=== PATIENT | female | born 1955 | race Caucasian/White ===

== ENCOUNTER 2016-09-18 21:03 | Inpatient (IN) | payer MEDICARE, BC ==
[~2016-09-18] VITALS: Ht 160 cm; Wt 72.6 kg
[~2016-09-18 21:03] MED LIST: ASPI325T PO; ATOR40TA64 PO; ESCI20TA30 PO; FURO20TA4 PO; GABA-336 PO; HYDR-3989 PO; LEVO100T12 PO; ONDA4TAB7 PO; OXYC1TAB8 PO; POTA20TA87 PO; SOTA80TA20 PO
--- OUTSIDE RECORDS SUMMARY | 2016-09-18 21:10 | XMS REPORT | Continuity of Care Document ---
Author Author [facility] Organization [facility] Address Unknown Phone Unavailable Support Name Relationship Address Phone MARICRUZ LENTZ MD Caregiver [address] [place] [address] Unavailable CHICHO LORENZO DO Caregiver [address] [place] [address] Unavailable STEVE JAY Next Of Kin [address] [place] [address] Insurance Providers Guarantor Tiffanie Jay Address [address] [place] [id number] Email DENIED 2016 [facility] Policy Number [id number] Subscriber's Name Steve Jay Relationship 01 Spouse Group Number [id number] Payer Medicare Policy Number [id number] Subscriber's Name Tiffanie Jay Relationship 18 Self Advance Directives Directive Response Recorded Date/Time Advanced Directives Type None 09/01/16 9:07am Chief Complaint and Reason for Visit Chief Complaint Chest Pain Reason for Visit Acute chest wall pain Problems Active Problems Medical Problem Onset Date Status Atrial fibrillation Unknown Acute Carotid aneurysm, right Unknown Acute Past Problems Medical Problem Onset Date Acute chest wall pain Unknown Medications Current Home Medications Medication Dose Units Route Directions Days Qty Instructions Start Date Acetaminophen/Hydrocodone Bitart ([place] 5-325 Tablet) 5-325 Tablet 1 Tab Oral Every 4-6 Hours Prn 09/01/16 Aspirin 325 Mg Tablet 325 Mg Oral Daily 02/27/15 Atorvastatin Calcium 40 Mg Tablet 1 Tab Oral Bedtime 02/27/15 Escitalopram Oxalate 20 Mg Tablet 1 Tab Oral Daily 02/27/15 Furosemide 20 Mg Tablet 20 Mg Oral Qd 09/01/16 Gabapentin 100 Mg Capsule 1 Cap Oral Daily 02/27/15 Levothyroxine Sodium 100 Mcg Tablet 100 Mcg Oral Qd 09/01/16 Ondansetron (Zofran Odt) 4 Mg Tab.rapdis 4 Mg Oral Every 4 Hours as needed for Nausea &/Or Vomiting 3 Days 18 Tablet 09/01/16 Oxycodone Hcl/Acetaminophen (Percocet 5-325 Mg Tablet) 5-325 Tablet 1 Tab Oral Every 4 Hours as needed for Pain 3 Days 18 Tablet 09/01/16 Potassium Chloride 20 Meq Tab.er.prt 20 Meq Oral Qd 09/01/16 Sotalol Hcl (Betapace) 80 Mg Tablet 40 Mg Oral Before Meals Twice A Day 60 Tablet 02/28/15 Past Home Medications Medication Directions Ordered Status Aspirin 81 Mg Tab.chew, 81 Mg Oral 09/13/11 Discontinued Cyclobenzaprine Hcl 10 Mg Tablet, 10 Mg Oral Daily 09/13/11 Discontinued Hydrocodone/Acetaminophen ([place] 5-325 Tablet) 1 Each Tablet, 1-2 Tab Oral Every 6 Hours as needed for Pain 11/24/14 Discontinued Levothyroxine Sodium 75 Mcg Tablet, 75 Mcg Perfusion Daily 09/14/11 Discontinued Lisinopril 20 Mg Tablet, 20 Mg Oral Daily 09/13/11 Discontinued Metoprolol Tartrate 25 Mg Tablet, 25 Mg Oral Twice Daily With Meals 02/27/15 Discontinued Oxybutynin , 15 Daily 09/13/11 Discontinued Simvastatin 20 Mg Tablet, 20 Mg Oral Daily 09/13/11 Discontinued Ubidecarenone/Vitamin E (Co Q-10 50 Mg Softgel) 1 Cap Capsule, 1 Cap Oral Daily 09/13/11 Discontinued Venlafaxine Hcl 37.5 Mg Tablet, 37.5 Mg Oral Daily 09/13/11 Discontinued Social History Social History Problem Response Recorded Date/Time Onset Date Status Hx Substance Use No 09/01/2016 9:21am Not Applicable Not Applicable Hx Alcohol Use No 09/01/2016 9:21am Not Applicable Not Applicable Has the pt used tobacco in the last 12 months Yes 02/27/2015 9:39am Not Applicable Not Applicable Tobacco Usage none 11/29/2014 8:30am Not Applicable Not Applicable Query Response Start Date Stop Date Smoking Status Current every day smoker Hospital Discharge Instructions No hospital discharge instructions. Plan of Care Discharge Date 09/01/16 12:38pm Disposition 01 DISCHARGED HOME, SELF-CARE Condition at Discharge Improved Instructions/Education Provided Chest Wall Pain (ED) Prescriptions See Medication Section Referrals MARICRUZ LENTZ MD Address: [address] [place] [id number] Note: GIOVANI GORE MD Order Date: 2 Days Address: [address] [place] [address] [place] [phone] Care Plan and Goals Physician Care Plan Problem: Acute Chest Wall Pain Goal: Follow up with primary care provider Instructions: Take medications and follow care plan as discussed/written Functional Status No functional status results. Allergies, Adverse Reactions, Alerts Allergen Type Severity Reaction Status Last Updated Sulfa (Sulfonamide Antibiotics) Allergy Unknown UNKNOWN Active 09/01/16 ZOMAX Allergy Unknown HIVES Active 02/27/15 Immunizations Query Response on File Recorded Date/Time Hx Influenza Vaccination No 02/27/15 9:39am Hx Pneumococcal Vaccination Y DECEMBER 2013 02/27/15 9:39am Hx Influenza Vaccination No 02/27/15 9:39am Influenza Vaccine Hx NOT UP TO DATE 09/01/16 9:21am Vital Signs Acute Vital Signs Vital Response Date/Time Temperature (Fahrenheit) 97.7 deg F (96.8 - 99.1) 09/01/2016 9:07am Temperature (Calculated Celsius) 36.03761 degrees C (36.0 - 37.3) 09/01/2016 9:07am Pulse Rate (adult) 59 bpm (60 - 100) 09/01/2016 12:36pm Respiratory Rate 20 breaths/min (10 - 20) 09/01/2016 12:36pm O2 Sat by Pulse Oximetry 95 % (90 - 100) 09/01/2016 12:36pm Blood Pressure 149/65 mm Hg 09/01/2016 12:36pm Height (Feet) 5 feet 09/01/2016 9:07am Height (Inches) 3.00 inches 09/01/2016 9:07am Weight (Kilograms) 74.100 kg 09/01/2016 9:07am Body Mass Index (BMI) 28.0 09/01/2016 9:07am Results Laboratory Results Test Name Result Units Flags Reference Collection Date/Time Result Date/ Time Comments White Blood Count 8.1 T/MM3 4.5-11.0 09/01/2016 9:46am 09/01/2016 9: 53am Red Blood Count 4.50 M/MM3 4.00-5.20 09/01/2016 9:46am 09/01/2016 9: 53am Hemoglobin 12.8 GM/DL 12-16 09/01/2016 9:46am 09/01/2016 9:53am Hematocrit 39.8 % 36-46 09/01/2016 9:46am 09/01/2016 9:53am Mean Corpuscular Volume 88.4 UM3 80-100 09/01/2016 9:46am 09/01/2016 9: 53am Mean Corpuscular Hemoglobin 28.4 UUG 26-34 09/01/2016 9:46am 2016 9:53am Mean Corpuscular Hemoglobin Concent 32.2 GM/DL 31-37 09/01/2016 9:46am 09/01/2016 9:53am RDW Standard Deviation 50.0 FL 36.9-50.2 09/01/2016 9:46am 09/01/2016 9 :53am Platelet Count 253 T/MM3 130-400 09/01/2016 9:46am 09/01/2016 9:53am Mean Platelet Volume 10.8 UM3 9.4-12.4 09/01/2016 9:46am 09/01/2016 9: 53am Neutrophils (%) (Auto) 67.6 % H 33-66 09/01/2016 9:46am 09/01/2016 9: 53am Lymphocytes (%) (Auto) 22.1 % L 23-45 09/01/2016 9:46am 09/01/2016 9: 53am Monocytes (%) (Auto) 7.3 % 0-9.0 09/01/2016 9:46am 09/01/2016 9:53am Eosinophils (%) (Auto) 1.5 % 0-4 09/01/2016 9:46am 09/01/2016 9:53am Basophils (%) (Auto) 1.1 % 0-2 09/01/2016 9:46am 09/01/2016 9:53am Immature Granulocyte % (Auto) 0.4 % 0.0-0.5 09/01/2016 9:46am 2016 9:53am Absolute Neutrophils (auto) 5.5 T/MM3 1.8-7.7 09/01/2016 9:46am 2016 9:53am Absolute Lymphocytes (auto) 1.8 T/MM3 1-4.8 09/01/2016 9:46am 2016 9:53am Absolute Monocytes (auto) 0.6 T/MM3 0-0.8 09/01/2016 9:46am 09/01/2016 9:53am Absolute Eosinophils (auto) 0.1 T/MM3 0-0.5 09/01/2016 9:46am 2016 9:53am Absolute Basophils (auto) 0.1 T/MM3 0-0.2 09/01/2016 9:46am 09/01/2016 9:53am Absolute Immature Granulocyte (auto 0.03 T/MM3 0.00-0.03 09/01/2016 9: 46am 09/01/2016 9:53am Icterus Index < 2 0-7 09/01/2016 9:46am 09/01/2016 10:04am Chemistry Specimen Hemolysis < 15 0-25 09/01/2016 9:46am 09/01/2016 10:04am 0-25: Specimen Exhibited No Hemolysis. Turbidity < 20 0-20 09/01/2016 9:46am 09/01/2016 10:04am Sodium Level 146 MEQ/L H 134-144 09/01/2016 9:46am 09/01/2016 10:04am Potassium Level 3.6 MEQ/L 3.6-5 09/01/2016 9:46am 09/01/2016 10:04am Chloride Level 109 MEQ/L H 98-107 09/01/2016 9:46am 09/01/2016 10:04am Carbon Dioxide Level 26 MEQ/L 22-30 09/01/2016 9:46am 09/01/2016 10: 04am Anion Gap 11 MEQ/L 5-15 09/01/2016 9:46am 09/01/2016 10:04am Blood Urea Nitrogen 17.0 MG/DL 7-09/01/2016 9:46am 09/01/2016 10: 04am Creatinine 0.7 MG/DL 0.7-1.2 09/01/2016 9:4609/01/2016 10:04am BUN/Creatinine Ratio 24 RATIO 6-26 09/01/2016 9:46am 09/01/2016 10: 04am Glomerular Filtration Rate Calc 85 09/01/2016 9:4609/01/2016 10: 04am Glucose Level 83 MG/DL 65-110 09/01/2016 9:46am 09/01/2016 10:04am Calculated Osmolality 282 MOSM/KG H 261-280 09/01/2016 9:46am 2016 10:04am Calcium Level 8.9 MG/DL 8.4-10.2 09/01/2016 9:46am 09/01/2016 10:04am Total Bilirubin 0.90 MG/DL 0.20-1.30 09/01/2016 9:46am 09/01/2016 10: 04am Alkaline Phosphatase 126 U/L 38-126 09/01/2016 9:46am 09/01/2016 10: 04am Total Protein 6.4 G/DL 6.3-8.2 09/01/2016 9:46am 09/01/2016 10:04am Albumin 3.6 G/DL 3.5-5.0 09/01/2016 9:46am 09/01/2016 10:04am Globulin 2.8 G/DL 2.4-3.6 09/01/2016 9:46am 09/01/2016 10:04am Albumin/Globulin Ratio 1.3 RATIO 1.1-2.2 09/01/2016 9:46am 09/01/2016 10:04am Aspartate Amino Transf (AST/SGOT) 18 U/L 14-36 09/01/2016 9:46am 2016 10:04am Alanine Aminotransferase (ALT/SGPT) 31 U/L 9-52 09/01/2016 9:46am 09/01 10:04am Troponin I < 0.012 ng/ml 0-0.12 09/01/2016 9:46am 09/01/2016 10:16am Troponin values with a difference of 55% increase from orginal troponin value represent a true biological DELTA value. (%increase Calc=Orginal Troponin value, divided by subsequent Troponin value, multiplied by 100) Name: TIFFANIE JAY Unit #: [id number] : 1955 Sex: F Admit Date: Loc / Svc: ED Discharge Date: DIAGNOSTIC IMAGING REPORT Report #: [id number] [facility] LUZ Menjivar Indication: Chest pain, history of angina Procedure: CTA PE/CTA AORTA: Encounter: Subsequent Comparison: Chest radiograph of the same day, cervical CT angiogram 11/24/2014 Technique: Pulmonary CT angiogram after administration of intravenous contrast. Additional aortic CT angiogram of the chest, abdomen, and pelvis was performed before and after administration of intravenous contrast. Coronal and Sagittal 3D MIP reconstructed images were created and reviewed. Automated Exposure Control and Iterative Reconstruction dose reducing techniques were utilized. Contrast: Omnipaque 350 60 mL Findings: Pulmonary arteries: No pulmonary arterial filling defects seen to suggest thromboembolic disease. No pulmonary arterial hypertension or right ventricular strain. Lungs and airways: Mild dependent atelectasis. No pulmonary nodule, mass, or focal consolidation. No endoluminal lesion. Pleura: No pleural effusions. No pneumothorax. Heart and mediastinum: The visualized thyroid gland appears normal. Mild cardiomegaly without pericardial effusion. Coronary arterial and thoracic aortic atherosclerotic calcifications. The great vessels of the thorax are otherwise within normal limits with no evidence of aortic aneurysmal dilatation or dissection. No mediastinal or hilar lymphadenopathy. The visualized esophagus appears normal. Abdomen: Aortoiliac atherosclerotic calcifications with aneurysmal dilatation of the infrarenal mid abdominal aorta measuring up to 4.4 x 4.2 cm. The liver appears grossly normal. The gallbladder appears to be surgically absent. No biliary ductal dilatation. The pancreas enhances homogeneously. The spleen is unremarkable. The adrenal glands are within normal limits. Right extrarenal pelvis and small cyst. The kidneys appear otherwise normal. Visualized bowel loops are normal in caliber. No intra-abdominal free air or free fluid, focal fluid collections, or lymphadenopathy. Osseous structures and soft tissues: No axillary lymphadenopathy. Degenerative spondylosis of the spine. Height loss and sclerosis of T5 and to a lesser extent the superior endplate of T6. Impression: 1. No CT evidence of pulmonary thromboembolic disease. 2. Coronary arterial and thoracic aortic atherosclerotic calcifications without aneurysmal dilatation or dissection of the thoracic aorta. 3. Aortoiliac atherosclerotic calcifications with aneurysmal dilatation of the mid infrarenal abdominal aorta measuring up to 4.4 x 4.2 cm without evidence of dissection or rupture. 4. Height loss and sclerosis of T5 and to a lesser extent the superior endplate of T6 which could represent subacute compression deformities in the appropriate clinical setting. Nonemergent MRI could be obtained for further evaluation of acuity as clinically indicated. . Procedures No known history of procedures. Encounters Encounter Location Arrival/Admit Date Discharge/Depart Date Attending Provider Departed Emergency Room [facility] 09/01/16 9:02am 09/01/16 12: 38pm CHICHO LORENZO DO Recent Diagnosis
--- OUTSIDE RECORDS SUMMARY | 2016-09-18 21:12 | XMS REPORT | Continuity of Care Document ---
Author Author [facility] Organization [facility] Address Unknown Phone Unavailable Allergies Active Description Code Type Severity Reaction Onset Reported/Identified Relationship to Patient Clinical Status Yes Sulfa (Sulfonamide Antibiotics) Sulfa (Sulfonamide Antibiotics) Drug Allergy Severe RASH, THROAT AND TONGUE SWELLING 08/08/2014 Medications Problems Date Dx Coded Attending Type Code Diagnosis Diagnosed By 08/01/2015 Ernesto Cheng DO D50.9 IRON DEFICIENCY ANEMIA, UNSPECIFIED 08/01/2015 Ernesto Cheng DO A F E03.9 HYPOTHYROIDISM, UNSPECIFIED 08/01/2015 Ernesto Cheng DO A F E11.9 TYPE 2 DIABETES MELLITUS WITHOUT COMPLICATIONS 08/01/2015 Ernesto Cheng DO A F E78.5 HYPERLIPIDEMIA, UNSPECIFIED 08/01/2015 Yamile Cheng DOnt A F F19.90 OTHER PSYCHOACTIVE SUBSTANCE USE, UNSPECIFIED, [facility] 08/01/2015 Yamile Cheng DOnt A F I10 ESSENTIAL (PRIMARY) HYPERTENSION 08/01/2015 Yamile Cheng DOnt A F I48.0 PAROXYSMAL ATRIAL FIBRILLATION 08/01/2015 Yamile Cheng DOnt A F I72.0 ANEURYSM OF CAROTID ARTERY 08/01/2015 Yamile Cheng DOnt A F I73.9 PERIPHERAL VASCULAR DISEASE, UNSPECIFIED 08/01/2015 Ernesto Cheng DO A F J44.9 CHRONIC OBSTRUCTIVE PULMONARY DISEASE, UNSPECIFIED 08/01/2015 Yamile Cheng DOnt A F J96.01 ACUTE RESPIRATORY FAILURE WITH HYPOXIA 08/01/2015 Prosper RIDLEY Ernesto A A K92.1 MELENA 08/01/2015 Ernesto Cheng DO A F K92.2 GASTROINTESTINAL HEMORRHAGE, UNSPECIFIED 08/01/2015 Ernesto Cheng DO A F Z72.0 TOBACCO USE 08/01/2015 Ernesto Cheng DO A F Z88.2 ALLERGY STATUS TO SULFONAMIDES STATUS Procedures Code Description Performed By Performed On [id number] EXCISION OF DUODENUM, ENDO, DIAGN Yamile Cheng DOnt A 08/01/2015 Results Test Result Range GLUCOSE (POC) - 08/08/14 18:10 GLUCOSE (POC) 82 mg/dL 70-99 CBC W/DIFF - 08/08/14 18:19 BASOPHIL # 0.1 k/cumm 0.0-0.2 BASOPHIL % 1 % 0-1 EOSINOPHIL # 0.2 k/cumm 0.1-0.5 EOSINOPHIL % 2 % 2-4 GRANULOCYTE # 7.1 k/cumm 2.0-9.0 GRANULOCYTE % 63 % 50-75 LYMPHOCYTE # 3.0 k/cumm 1.0-4.0 LYMPHOCYTE % 27 % 20-30 MEAN CELL HGB 29.3 pg 27.0-33.0 MEAN CELL HGB CONCENTRATION 33.5 g/dL 32.0-37.0 MEAN CELL VOLUME 87.5 fl 80.0-100.0 MONOCYTE # 0.8 k/cumm 0.1-1.0 MONOCYTE % 7 % 4-6 RED BLOOD CELL 5.53 m/cumm 4.00-6.00 RED CELL DISTRIBUTION WIDTH 14.8 % 11.0- 15.6 WHITE BLOOD CELL 11.3 k/cumm 5.0-10.0 HEMOGLOBIN 16.2 gm/dL 12.0-16.0 HEMATOCRIT 48.4 % 37.0-47.0 PLATELET COUNT 261 k/cumm 150-400 HEMOGLOBIN A1C - 08/08/14 18:19 HEMOGLOBIN A1C 5.9 % < 5.7 METABOLIC PANEL, COMPREHN - 08/08/14 18:19 POTASSIUM 3.9 mmol/L 3.5-5.3 EST GFR (MDRD) > 60 mL/min > 59 ANION GAP 6 mmol/L 5-15 EST CrCl (CG) > 60 mL/min > 59 GLUCOSE 82 mg/dL 70-99 CALCIUM 8.7 mg/dL 8.5-10.1 BLOOD UREA NITROGEN 10 mg/dL 7-20 CREATININE 0.8 mg/dL 0.6-1.0 SODIUM 145 mmol/L 135-148 CHLORIDE 111 mmol/L 98-110 AST/SGOT 9 Units/L 10-37 ALT/SGPT 20 Units/L < 66 CARBON DIOXIDE 28 mmol/L 21-32 TOTAL PROTEIN 7.4 gm/dL 6.4-8.2 ALBUMIN 3.4 gm/dL 3.4-5.0 BILI TOTAL 0.8 mg/dL 0.0-1.0 ALKALINE PHOSPHATASE TOTAL 183 IU/L 45- 117 PHOSPHORUS - 08/08/14 18:19 PHOSPHORUS 4.0 mg/dL 2.5-4.9 MAGNESIUM - 08/08/14 18:19 MAGNESIUM 2.0 mg/dL 1.8-2.4 THYROID STIM HORMONE (TSH) - 08/08/14 18:19 THYROID STIM HORMONE (TSH) 1.51 uIU/mL 0.34-4.82 GLUCOSE (POC) - 08/08/14 21:48 GLUCOSE (POC) 96 mg/dL 70-99 URINALYSIS, ROUTINE - 08/09/14 02:45 UA LEUKOCYTE ESTERASE DIPSTICK NEGATIVE NEGATIVE UA NITRITE DIPSTICK NEGATIVE NEGATIVE UA PROTEIN DIPSTICK NEGATIVE NEGATIVE UA GLUCOSE DIPSTICK NEGATIVE NEGATIVE UA KETONE DIPSTICK NEGATIVE NEGATIVE UA UROBILINOGEN DIPSTICK NORMAL NORMAL UA BILIRUBIN DIPSTICK NEGATIVE NEGATIVE UA BLOOD DIPSTICK TRACE NEGATIVE UA SPECIFIC GRAVITY 1.015 1.015-1.025 UR PH 7.0 5.0-7.0 UR DRUGS OF ABUSE SCREEN - 08/09/14 02:45 UR AMPHETAMINES SCREEN NEG (<1000 ng/mL) NEGATIVE UR BARBITURATE SCREEN NEG (< 200 ng/mL) NEGATIVE DRUGS OF ABUSE SCREEN COMMENT UR OPIATES SCREEN NEG (< 300 ng/mL) NEGATIVE UR PHENCYCLIDINE (PCP) SCREEN NEG (< 25 ng/mL) NEGATIVE UR CANNABINOIDS (THC) SCREEN POS (> 50 ng/mL) NEGATIVE UR COCAINE METABOLITE SCREEN NEG (< 300 ng/mL) NEGATIVE UR METHADONE SCREEN NEG (< 300 ng/mL) NEGATIVE UR BENZODIAZEPINE SCREEN NEG (< 200 ng/mL) NEGATIVE UA MICROSCOPIC - 08/09/14 02:45 UA BACTERIA 1+ NEGATIVE UA EPITHELIAL CELLS 2+ epi/hpf 0 - 1+ UA MUCUS 1+ NEG TO 1+ UA RBC 0-3 rbc/hpf 0 - 3 UA VOLUME FOR EXAM 12.0 mL (12mL STD) UA WBC 0-1 wbc/hpf 0 - 5 METABOLIC PANEL, BASIC - 08/09/14 04:49 POTASSIUM 3.6 mmol/L 3.5-5.3 EST GFR (MDRD) > 60 mL/min > 59 ANION GAP 7 mmol/L 5-15 EST CrCl (CG) > 60 mL/min > 59 GLUCOSE 81 mg/dL 70-99 CALCIUM 9.1 mg/dL 8.5-10.1 BLOOD UREA NITROGEN 12 mg/dL 7-20 CREATININE 0.8 mg/dL 0.6-1.0 SODIUM 142 mmol/L 135-148 CHLORIDE 109 mmol/L 98-110 CARBON DIOXIDE 26 mmol/L 21- LIPID PANEL - 08/09/14 04:49 CHOLESTEROL/HDL RATIO 8.7 < 5.0 LDL CHOLESTEROL 175 mg/dL < 100 VLDL CHOLESTEROL 41 mg/dL < 30 TRIGLYCERIDES 207 mg/dL < 150 CHOLESTEROL 244 mg/dL < 200 HDL CHOLESTEROL 28 mg/dL > 39 GLUCOSE (POC) - 08/09/14 06:25 GLUCOSE (POC) 87 mg/dL 70-99 GLUCOSE (POC) - 08/09/14 09:33 GLUCOSE (POC) 88 mg/dL -99 GLUCOSE (POC) - 08/09/14 14:21 GLUCOSE (POC) 168 mg/dL -99 GLUCOSE (POC) - 08/09/14 22:34 GLUCOSE (POC) 124 mg/dL -99 GLUCOSE (POC) - 08/10/14 06:20 GLUCOSE (POC) 161 mg/dL 70-99 CBC W/DIFF - 08/10/14 07:10 BASOPHIL # 0.1 k/cumm 0.0-0.2 BASOPHIL % 1 % 0-1 GRANULOCYTE # 6.7 k/cumm 2.0-9.0 GRANULOCYTE % 83 % 50-75 LYMPHOCYTE # 1.1 k/cumm 1.0-4.0 LYMPHOCYTE % 14 % 20-30 MEAN CELL HGB 29.0 pg 27.0-33.0 MEAN CELL HGB CONCENTRATION 33.3 g/dL 32.0-37.0 MEAN CELL VOLUME 87.3 fl 80.0-100.0 MONOCYTE # 0.2 k/cumm 0.1-1.0 MONOCYTE % 2 % 4-6 RED BLOOD CELL 5.75 m/cumm 4.00-6.00 RED CELL DISTRIBUTION WIDTH 14.7 % 11.0- 15.6 WHITE BLOOD CELL 8.1 k/cumm 5.0-10.0 HEMOGLOBIN 16.7 gm/dL 12.0-16.0 HEMATOCRIT 50.2 % 37.0-47.0 PLATELET COUNT 270 k/cumm 150-400 GLUCOSE (POC) - 08/10/14 09:56 GLUCOSE (POC) 154 mg/dL 70-99 RENAL FUNCTION PANEL - 08/10/14 10:25 POTASSIUM 4.5 mmol/L 3.5-5.3 EST GFR (MDRD) > 60 mL/min > 59 ANION GAP 7 mmol/L 5-15 EST CrCl (CG) > 60 mL/min > 59 GLUCOSE 133 mg/dL 70-99 CALCIUM 9.3 mg/dL 8.5-10.1 BLOOD UREA NITROGEN 20 mg/dL 7-20 CREATININE 0.9 mg/dL 0.6-1.0 SODIUM 141 mmol/L 135-148 CHLORIDE 108 mmol/L 98-110 CARBON DIOXIDE 26 mmol/L 21-32 ALBUMIN 3.5 gm/dL 3.4-5.0 PHOSPHORUS 3.2 mg/dL 2.5-4.9 MAGNESIUM - 08/10/14 10:25 MAGNESIUM 2.0 mg/dL 1.8-2.4 GLUCOSE (POC) - 08/10/14 13:58 GLUCOSE (POC) 242 mg/dL 70-99 GLUCOSE (POC) - 08/10/14 22:06 GLUCOSE (POC) 115 mg/dL 70-99 GLUCOSE (POC) - 08/11/14 05:55 GLUCOSE (POC) 165 mg/dL 70-99 GLUCOSE (POC) - 08/11/14 09:52 GLUCOSE (POC) 100 mg/dL 70-99 GLUCOSE (POC) - 08/11/14 16:44 GLUCOSE (POC) 113 mg/dL 70-99 GLUCOSE (POC) - 08/11/14 21:50 GLUCOSE (POC) 98 mg/dL 70-99 CBC W/MANUAL DIFF - 08/12/14 04:38 MEAN CELL HGB 29.1 pg 27.0-33.0 MEAN CELL HGB CONCENTRATION 33.2 g/dL 32.0-37.0 MEAN CELL VOLUME 87.6 fl 80.0-100.0 RED BLOOD CELL 5.57 m/cumm 4.00-6.00 RED CELL DISTRIBUTION WIDTH 14.9 % 11.0- 15.6 WHITE BLOOD CELL 11.9 k/cumm 5.0-10.0 HEMOGLOBIN 16.2 gm/dL 12.0-16.0 HEMATOCRIT 48.8 % 37.0-47.0 PLATELET COUNT 269 k/cumm 150-400 MANUAL DIFF(O) - 08/12/14 04:38 BASOPHIL # 0.1 k/cumm 0.0-0.2 BASOPHIL % 1 % 0-1 GRANULOCYTE # 9.8 k/cumm 2.0-9.0 LYMPHOCYTE # 1.9 k/cumm 1.0-4.0 LYMPHOCYTE % 16 % 20-30 DIFFERENTIAL MANUAL MONOCYTE # 0.1 k/cumm 0.1-1.0 MONOCYTE % 1 % 4-6 RBC MORPH NORMAL SEGMENTED NEUTROPHIL % 82 % 50-70 RENAL FUNCTION PANEL - 08/12/14 04:38 POTASSIUM 4.6 mmol/L 3.5-5.3 EST GFR (MDRD) > 60 mL/min > 59 ANION GAP 7 mmol/L 5-15 EST CrCl (CG) > 60 mL/min > 59 GLUCOSE 141 mg/dL 70-99 CALCIUM 8.7 mg/dL 8.5-10.1 BLOOD UREA NITROGEN 26 mg/dL 7-20 CREATININE 0.9 mg/dL 0.6-1.0 SODIUM 142 mmol/L 135-148 CHLORIDE 111 mmol/L 98-110 CARBON DIOXIDE 24 mmol/L 21-32 ALBUMIN 3.4 gm/dL 3.4-5.0 PHOSPHORUS 2.8 mg/dL 2.5-4.9 MAGNESIUM - 08/12/14 04:38 MAGNESIUM 2.1 mg/dL 1.8-2.4 GLUCOSE (POC) - 08/12/14 06:19 GLUCOSE (POC) 147 mg/dL 70-99 GLUCOSE (POC) - 08/12/14 10:17 GLUCOSE (POC) 140 mg/dL 70-99 GLUCOSE (POC) - 08/12/14 14:30 GLUCOSE (POC) 183 mg/dL 70-99 CBC W/DIFF - 08/01/15 19:41 BASOPHIL # 0.2 k/cumm 0.0-0.2 BASOPHIL % 2 % 0-1 EOSINOPHIL # 0.2 k/cumm 0.1-0.5 EOSINOPHIL % 3 % 2-4 GRANULOCYTE # 5.2 k/cumm 2.0-9.0 GRANULOCYTE % 59 % 50-75 LYMPHOCYTE # 2.4 k/cumm 1.0-4.0 LYMPHOCYTE % 28 % 20-30 MEAN CELL HGB 21.3 pg 27.0-33.0 MEAN CELL HGB CONCENTRATION 28.0 g/dL 32.0-37.0 MEAN CELL VOLUME 76.2 fl 80.0-100.0 MONOCYTE # 0.8 k/cumm 0.1-1.0 MONOCYTE % 9 % 4-6 POLYCHROMASIA NOTED RED BLOOD CELL 2.86 m/cumm 4.00-6.00 RED CELL DISTRIBUTION WIDTH 19.6 % 11.0- 15.6 WHITE BLOOD CELL 8.9 k/cumm 5.0-10.0 HEMOGLOBIN 6.1 gm/dL 12.0-16.0 HEMATOCRIT 21.8 % 37.0-47.0 PLATELET COUNT 412 k/cumm 150-400 HEMOGLOBIN A1C - 08/01/15 19:41 HEMOGLOBIN A1C 5.6 % < 5.7 PROTHROMBIN TIME WITH INR - 08/01/15 19:41 INTERNATIONAL NORMAL RATIO 1.0 0.9-1.1 PROTHROMBIN TIME 11.7 sec 9.3-12.2 METABOLIC PANEL, COMPREHN - 08/01/15 19:41 POTASSIUM 4.1 mmol/L 3.5-5.3 EST GFR (MDRD) > 60 mL/min > 59 ANION GAP 6 mmol/L 5-15 EST CrCl (CG) > 60 mL/min > 59 GLUCOSE 84 mg/dL 70-99 CALCIUM 8.4 mg/dL 8.5-10.1 BLOOD UREA NITROGEN 19 mg/dL 7-20 CREATININE 0.8 mg/dL 0.6-1.0 SODIUM 141 mmol/L 135-148 CHLORIDE 109 mmol/L 98-110 AST/SGOT 10 Units/L 10-37 ALT/SGPT 15 Units/L < 66 CARBON DIOXIDE 26 mmol/L 21-32 TOTAL PROTEIN 5.8 gm/dL 6.4-8.2 ALBUMIN 3.0 gm/dL 3.4-5.0 BILI TOTAL 0.7 mg/dL 0.0-1.0 ALKALINE PHOSPHATASE TOTAL 123 IU/L 45- 117 PHOSPHORUS - 08/01/15 19:41 PHOSPHORUS 4.1 mg/dL 2.5-4.9 MAGNESIUM - 08/01/15 19:41 MAGNESIUM 2.0 mg/dL 1.8-2.4 FERRITIN - 08/01/15 19:41 FERRITIN 7 ng/mL 8-252 THYROID STIM HORMONE (TSH) - 08/01/15 19:41 THYROID STIM HORMONE (TSH) 1.71 uIU/mL 0.34-4.82 FOLIC ACID,SERUM - 08/01/15 19:41 FOLIC ACID,SERUM 7.9 ng/mL > 3.4 VITAMIN B12 - 08/01/15 19:41 VITAMIN B12 330 pg/mL 211-911 RETICULOCYTE COUNT - 08/01/15 19:41 IMMATURE FRACTION 26.4 % 5-22 RED BLOOD CELL 2.84 m/cumm 4.00-6.00 ABSOLUTE RETIC COUNT 63.6 k/cumm 20.0- 180.0 PERCENT RETIC 2.2 % 0.5-3.0 IRON W/ BINDING CAPACITY - 08/01/15 19:42 IRON SATURATION 2 % SAT 11-46 IRON BINDING CAPACITY, TOTAL 345 mcg/dL 250-450 IRON 7 mcg/dL 35-150 URINALYSIS, ROUTINE - 08/02/15 01:40 UA LEUKOCYTE ESTERASE DIPSTICK 1+ NEGATIVE UA NITRITE DIPSTICK NEGATIVE NEGATIVE UA PROTEIN DIPSTICK NEGATIVE NEGATIVE UA GLUCOSE DIPSTICK NEGATIVE NEGATIVE UA KETONE DIPSTICK NEGATIVE NEGATIVE UA UROBILINOGEN DIPSTICK NORMAL NORMAL UA BILIRUBIN DIPSTICK NEGATIVE NEGATIVE UA BLOOD DIPSTICK NEGATIVE NEGATIVE UA SPECIFIC GRAVITY 1.019 1.015-1.025 UR PH 6.0 5.0-7.0 UA MICROSCOPIC - 08/02/15 01:40 UA BACTERIA 4+ NEGATIVE UA EPITHELIAL CELLS 2+ epi/hpf 0 - 1+ UA MUCUS 4+ NEG TO 1+ UA RBC 0-3 rbc/hpf 0 - 3 UA VOLUME FOR EXAM 12.0 mL (12mL STD) UA WBC 5-10 wbc/hpf 0 - 5 CBC W/DIFF - 08/02/15 03:06 BASOPHIL # 0.2 k/cumm 0.0-0.2 BASOPHIL % 2 % 0-1 EOSINOPHIL # 0.2 k/cumm 0.1-0.5 EOSINOPHIL % 2 % 2-4 GRANULOCYTE # 6.6 k/cumm 2.0-9.0 GRANULOCYTE % 65 % 50-75 LYMPHOCYTE # 2.2 k/cumm 1.0-4.0 LYMPHOCYTE % 22 % 20-30 MEAN CELL HGB 24.1 pg 27.0-33.0 MEAN CELL HGB CONCENTRATION 30.3 g/dL 32.0-37.0 MEAN CELL VOLUME 79.8 fl 80.0-100.0 MONOCYTE # 0.9 k/cumm 0.1-1.0 MONOCYTE % 9 % 4-6 OVALOCYTES NOTED RED BLOOD CELL 3.81 m/cumm 4.00-6.00 RED CELL DISTRIBUTION WIDTH 19.4 % 11.0- 15.6 SCHISTOCYTES NOTED WHITE BLOOD CELL 10.1 k/cumm 5.0-10.0 HEMOGLOBIN 9.2 gm/dL 12.0-16.0 HEMATOCRIT 30.4 % 37.0-47.0 PLATELET COUNT 427 k/cumm 150-400 [facility] - 08/[facility]/15 03:06 POTASSIUM 4.3 mmol/L 3.5-5.3 EST GFR (MDRD) > 60 mL/min > 59 ANION GAP 6 mmol/L 5-15 EST CrCl (CG) > 60 mL/min > 59 GLUCOSE 99 mg/dL 70-99 CALCIUM 8.1 mg/dL 8.5-10.1 BLOOD UREA NITROGEN 19 mg/dL 7-20 CREATININE 0.9 mg/dL 0.6-1.0 SODIUM 144 mmol/L 135-148 CHLORIDE 112 mmol/L 98-110 AST/SGOT 7 Units/L 10-37 ALT/SGPT 15 Units/L < 66 CARBON DIOXIDE 26 mmol/L 21-32 TOTAL PROTEIN 6.0 gm/dL 6.4-8.2 ALBUMIN 3.1 gm/dL 3.4-5.0 BILI TOTAL 1.8 mg/dL 0.0-1.0 ALKALINE PHOSPHATASE TOTAL 133 IU/L 45- 117 GLUCOSE (POC) - 08/02/15 05:49 GLUCOSE (POC) 101 mg/dL 70-99 HGB HCT - 08/02/15 07:15 MEAN CELL VOLUME 78.6 fl 80.0-100.0 HEMOGLOBIN 9.3 gm/dL 12.0-16.0 HEMATOCRIT 30.5 % 37.0-47.0 B-TYPE NATRIURETIC PEPTIDE - 08/02/15 07:15 B-TYPE NATRIURETIC PEPTIDE 545 pg/mL < 100 GLUCOSE (POC) - 08/02/15 11:56 GLUCOSE (POC) 91 mg/dL 70-99 HGB HCT - 08/02/15 13:17 MEAN CELL VOLUME 77.9 fl 80.0-100.0 HEMOGLOBIN 9.6 gm/dL 12.0-16.0 HEMATOCRIT 31.1 % 37.0-47.0 GLUCOSE (POC) - 08/02/15 15:48 GLUCOSE (POC) 120 mg/dL 70-99 GLUCOSE (POC) - 08/02/15 20:50 GLUCOSE (POC) 144 mg/dL 70-99 CBC - 08/03/15 03:38 MEAN CELL HGB 23.7 pg 27.0-33.0 MEAN CELL HGB CONCENTRATION 30.2 g/dL 32.0-37.0 MEAN CELL VOLUME 78.4 fl 80.0-100.0 RED BLOOD CELL 3.89 m/cumm 4.00-6.00 RED CELL DISTRIBUTION WIDTH 19.4 % 11.0- 15.6 WHITE BLOOD CELL 10.3 k/cumm 5.0-10.0 HEMOGLOBIN 9.2 gm/dL 12.0-16.0 HEMATOCRIT 30.5 % 37.0-47.0 PLATELET COUNT 415 k/cumm 150-400 RENAL FUNCTION PANEL - 08/03/15 03:38 POTASSIUM 4.1 mmol/L 3.5-5.3 EST GFR (MDRD) > 60 mL/min > 59 ANION GAP 6 mmol/L 5-15 EST CrCl (CG) > 60 mL/min > 59 GLUCOSE 90 mg/dL 70-99 CALCIUM 8.4 mg/dL 8.5-10.1 BLOOD UREA NITROGEN 18 mg/dL 7-20 CREATININE 0.8 mg/dL 0.6-1.0 SODIUM 144 mmol/L 135-148 CHLORIDE 109 mmol/L 98-110 CARBON DIOXIDE 29 mmol/L 21-32 ALBUMIN 3.0 gm/dL 3.4-5.0 PHOSPHORUS 3.5 mg/dL 2.5-4.9 GLUCOSE (POC) - 08/03/15 06:02 GLUCOSE (POC) 117 mg/dL 70-99 HELICOBACTER UREASE SCREEN - 08/03/15 10:04 Microbiology GLUCOSE (POC) - 08/03/15 11:40 GLUCOSE (POC) 92 mg/dL 70-99 GLUCOSE (POC) - 08/03/15 17:26 GLUCOSE (POC) 163 mg/dL 70-99 GLUCOSE (POC) - 08/03/15 21:38 GLUCOSE (POC) 94 mg/dL 70-99 GLUCOSE (POC) - 08/04/15 05:10 GLUCOSE (POC) 86 mg/dL 70-99 CBC - 08/04/15 06:05 MEAN CELL HGB 23.6 pg 27.0-33.0 MEAN CELL HGB CONCENTRATION 29.7 g/dL 32.0-37.0 MEAN CELL VOLUME 79.6 fl 80.0-100.0 RED BLOOD CELL 4.02 m/cumm 4.00-6.00 RED CELL DISTRIBUTION WIDTH 20.5 % 11.0- 15.6 WHITE BLOOD CELL 14.0 k/cumm 5.0-10.0 HEMOGLOBIN 9.5 gm/dL 12.0-16.0 HEMATOCRIT 32.0 % 37.0-47.0 PLATELET COUNT 411 k/cumm 150-400 MANUAL DIFFERENTIAL - 08/04/15 06:05 BASOPHIL # 0.1 k/cumm 0.0-0.2 BASOPHIL % 1 % 0-1 EOSINOPHIL # 0.3 k/cumm 0.1-0.5 EOSINOPHIL % 2 % 2-4 GRANULOCYTE # 11.5 k/cumm 2.0-9.0 LYMPHOCYTE # 1.7 k/cumm 1.0-4.0 LYMPHOCYTE % 12 % 20-30 DIFFERENTIAL MANUAL MONOCYTE # 0.4 k/cumm 0.1-1.0 MONOCYTE % 3 % 4-6 RBC MORPH NOTED SEGMENTED NEUTROPHIL % 82 % 50-70 RENAL FUNCTION PANEL - 08/04/15 06:05 POTASSIUM 3.9 mmol/L 3.5-5.3 EST GFR (MDRD) > 60 mL/min > 59 ANION GAP 8 mmol/L 5-15 EST CrCl (CG) > 60 mL/min > 59 GLUCOSE 80 mg/dL 70-99 CALCIUM 8.2 mg/dL 8.5-10.1 BLOOD UREA NITROGEN 14 mg/dL 7-20 CREATININE 0.7 mg/dL 0.6-1.0 SODIUM 144 mmol/L 135-148 CHLORIDE 108 mmol/L 98-110 CARBON DIOXIDE 28 mmol/L 21-32 ALBUMIN 3.1 gm/dL 3.4-5.0 PHOSPHORUS 3.3 mg/dL 2.5-4.9 MAGNESIUM - 08/04/15 06:05 MAGNESIUM 2.0 mg/dL 1.8-2.4 GLUCOSE (POC) - 08/04/15 15:43 GLUCOSE (POC) 85 mg/dL 70-99 GLUCOSE (POC) - 08/04/15 17:55 GLUCOSE (POC) 82 mg/dL 70-99 GLUCOSE (POC) - 08/04/15 19:58 GLUCOSE (POC) 138 mg/dL 70-99 CBC W/DIFF - 08/05/15 04:30 BASOPHIL # 0.1 k/cumm 0.0-0.2 BASOPHIL % 1 % 0-1 EOSINOPHIL # 0.2 k/cumm 0.1-0.5 EOSINOPHIL % 2 % 2-4 GRANULOCYTE # 6.3 k/cumm 2.0-9.0 GRANULOCYTE % 70 % 50-75 LYMPHOCYTE # 1.4 k/cumm 1.0-4.0 LYMPHOCYTE % 15 % 20-30 MEAN CELL HGB 23.8 pg 27.0-33.0 MEAN CELL HGB CONCENTRATION 29.4 g/dL 32.0-37.0 MEAN CELL VOLUME 81.2 fl 80.0-100.0 MONOCYTE # 1.0 k/cumm 0.1-1.0 MONOCYTE % 11 % 4-6 POLYCHROMASIA NOTED RED BLOOD CELL 3.82 m/cumm 4.00-6.00 RED CELL DISTRIBUTION WIDTH 21.9 % 11.0- 15.6 SPHEROCYTES NOTED WHITE BLOOD CELL 9.1 k/cumm 5.0-10.0 HEMOGLOBIN 9.1 gm/dL 12.0-16.0 HEMATOCRIT 31.0 % 37.0-47.0 PLATELET COUNT 351 k/cumm 150-400 RENAL FUNCTION PANEL - 08/05/15 04:30 POTASSIUM 3.8 mmol/L 3.5-5.3 EST GFR (MDRD) > 60 mL/min > 59 ANION GAP 7 mmol/L 5-15 EST CrCl (CG) > 60 mL/min > 59 GLUCOSE 107 mg/dL 70-99 CALCIUM 7.9 mg/dL 8.5-10.1 BLOOD UREA NITROGEN 14 mg/dL 7-20 CREATININE 0.7 mg/dL 0.6-1.0 SODIUM 143 mmol/L 135-148 CHLORIDE 109 mmol/L 98-110 CARBON DIOXIDE 27 mmol/L 21-32 ALBUMIN 2.9 gm/dL 3.4-5.0 PHOSPHORUS 3.3 mg/dL 2.5-4.9 MAGNESIUM - 08/05/15 04:30 MAGNESIUM 2.0 mg/dL 1.8-2.4 GLUCOSE (POC) - 08/05/15 05:42 GLUCOSE (POC) 127 mg/dL 70-99 GLUCOSE (POC) - 08/05/15 12:10 GLUCOSE (POC) 162 mg/dL 70-99 GLUCOSE (POC) - 08/05/15 17:16 GLUCOSE (POC) 131 mg/dL 70-99 GLUCOSE (POC) - 08/05/15 20:48 GLUCOSE (POC) 133 mg/dL 70-99 RENAL FUNCTION PANEL - 08/06/15 04:21 POTASSIUM 3.3 mmol/L 3.5-5.3 EST GFR (MDRD) > 60 mL/min > 59 ANION GAP 8 mmol/L 5-15 EST CrCl (CG) > 60 mL/min > 59 GLUCOSE 93 mg/dL 70-99 CALCIUM 8.5 mg/dL 8.5-10.1 BLOOD UREA NITROGEN 16 mg/dL 7-20 CREATININE 0.7 mg/dL 0.6-1.0 SODIUM 142 mmol/L 135-148 CHLORIDE 108 mmol/L 98-110 CARBON DIOXIDE 26 mmol/L 21-32 ALBUMIN 3.2 gm/dL 3.4-5.0 PHOSPHORUS 2.4 mg/dL 2.5-4.9 MAGNESIUM - 08/06/15 04:21 MAGNESIUM 2.0 mg/dL 1.8-2.4 CBC W/DIFF - 08/06/15 04:21 BASOPHIL # 0.2 k/cumm 0.0-0.2 BASOPHIL % 2 % 0-1 EOSINOPHIL # 0.4 k/cumm 0.1-0.5 EOSINOPHIL % 4 % 2-4 GRANULOCYTE # 5.5 k/cumm 2.0-9.0 GRANULOCYTE % 61 % 50-75 LYMPHOCYTE # 1.9 k/cumm 1.0-4.0 LYMPHOCYTE % 21 % 20-30 MEAN CELL HGB 24.1 pg 27.0-33.0 MEAN CELL HGB CONCENTRATION 29.6 g/dL 32.0-37.0 MEAN CELL VOLUME 81.4 fl 80.0-100.0 MONOCYTE # 0.9 k/cumm 0.1-1.0 MONOCYTE % 10 % 4-6 POLYCHROMASIA NOTED RED BLOOD CELL 4.03 m/cumm 4.00-6.00 RED CELL DISTRIBUTION WIDTH 23.0 % 11.0- 15.6 SPHEROCYTES NOTED WHITE BLOOD CELL 9.0 k/cumm 5.0-10.0 HEMOGLOBIN 9.7 gm/dL 12.0-16.0 HEMATOCRIT 32.8 % 37.0-47.0 PLATELET COUNT 347 k/cumm 150-400 GLUCOSE (POC) - 08/06/15 05:26 GLUCOSE (POC) 107 mg/dL 70-99 GLUCOSE (POC) - 08/06/15 11:46 GLUCOSE (POC) 93 mg/dL 70-99 Encounters ACCT No. Visit Date/Time Discharge Status Pt. Type Provider Facility Loc./Unit Complaint [id number] 08/01/2015 16:19:00 2015 17:34:00 DIS Inpatient Cheng [facility] W.3TN [id number] 08/08/2014 17:14:00 Document Registration
--- OUTSIDE RECORDS SUMMARY | 2016-09-18 21:52 | XMS REPORT | Continuity of Care Document ---
Author Author [facility] Organization [facility] Address Unknown Phone Unavailable Allergies Active Description [...] Procedures Code Description Performed By Performed On [id number] EXCISION OF DUODENUM, ENDO, DIAGN Yamile Cheng [...] PLATELET COUNT 427 k/cumm 150-400 METABOLIC PANEL, [facility] - 08/02/15 03:06 POTASSIUM 4.3 mmol/L 3.5-5.3 [...] Status Pt. Type Provider Facility Loc./Unit Complaint [id number] 08/01/2015 16:19:00 2015 17:34:00 DIS Inpatient Cheng [facility] W.3TN [id number] 08/08/2014 17:14:00 Document Registration
--- NOTE | 2016-09-18 21:54 | ERPDOC ---
Departure Disposition Decision Date: Sep 18, 2016 Disposition Decision Time: 23:07 Disposition: 02 TO [facility] [place] [facility] Impression Impression Impression: Primary Impression: GI bleed GI bleed type/associated pathology: unspecified gastrointestinal hemorrhage type Qualified Codes: K92.2 - Gastrointestinal hemorrhage, unspecified Severity: Moderate Condition: Stable Seen By: Mid-level only Referrals: MARICRUZ LENTZ MD (Family) Problems/Meds/Labs Reviewed?: Yes Medications reviewed and manag: Yes Follow up care ordered?: Yes Mental Status: Alert HPI - General Medical General Chief Complaint: General Stated Complaint: UNABLE TO WALK Time Seen by Provider: 21:39 Source: patient, family () Exam Limitations: no limitations HPI - General Medical Initial Comments For the last several weeks she has had some weakness of an on. It has gotten much worse over the last few days. She states that she can hardly walk and cant keep her head up well. She has seen her PCP in the last few weeks and had some labs drawn but does not know of any results. Has not been having any vomiting or fevers/chills. Does have a history of IBS and so she has frequent diarrhea. Has had trouble with bleeding in her stools from unknown source with black and tarry stools but she does not note any recently. Noted blood pressure is 77 systolic. Has been trying to drink fluids at home. Occurred At: home Onset: Gradual Duration: other (Over the last few weeks) Severity: moderate Associated Symptoms: loss of appetite, malaise, DENIES: chest pain, cough, diaphoresis, fever/chills, headaches, nausea/vomiting, rash, seizure, shortness of breath, syncope, weakness Hx of Similar Symptoms: No Allergies: Coded Allergies: Sulfa (Sulfonamide Antibiotics) (Verified Allergy, Unknown, UNKNOWN, ) THROAT SWELLING Uncoded Allergies: ZOMAX (Allergy, Unknown, HIVES, 02/27/15) Past History Past Medical History Metabolic: hypertension Cardiac: A-fib, other Female: UTI, pyelonephritis Musculoskeletal: osteoarthritis Psychological: anxiety, depression Surgical History General: appendix, gallbladder, other Reproductive/: D&C, hysterectomy Vaccines Hx Influenza Vaccination: No Hx Pneumococcal Vaccination: Yes (DECEMBER 2013) Social History Substance Use Type: does not use Alcohol Intake: none Review of Systems Constitutional Constitutional: dizziness, fatigue, weakness, DENIES: chills, fever Eyes Vision: DENIES: blurring, double vision ENMT Ears: DENIES: drainage, pain Cardiovascular Cardiac: DENIES: chest pain, dyspnea on exertion, orthopnea Rhythm/Rate: DENIES: irregular beat, palpitations Vascular: DENIES: pedal edema, unilateral swelling Pulmonary Respiratory: DENIES: cough, dyspnea, sputum, tachypnea GI Upper Abdomen: DENIES: nausea, pain, vomiting Lower Abdomen: diarrhea, DENIES: blood in stool, constipation, pain General: DENIES: dysuria, frequency, urgency Integumentary Skin: DENIES: rash Neurological General: DENIES: headache, numbness, tingling, weakness Physical Exam General General Nourishment: well nourished, well developed, appears stated age, no acute distress, adult General Body Habitus: well groomed Vitals and Pain First Documented Vital Signs Date Time Temp Pulse Resp B/P Pulse Ox O2 Delivery O2 Flow Rate FiO2 09/18/16 21:31 97.6 72 14 75/38 99 Room Air Weight: Kilograms: Height (feet): 5 Height (inches): 3.00 Triage Pain Scale: RN VS reviewed by Provider: Yes Normal Exams: Neck: Full range of motion, without adenopathy, JVD, bruits or thyromegaly Chest/Resp: Clear all snow, with good airflow, and symmetry bilaterally CV: Regular rate and rhythm, without murmur or gallop, Pulses 2+ all extremities, capillary refill, <2 seconds all ext., no pedal edema noted Abdomen: Bowel sounds positive, soft, non-tender, non-distended, no hepatosplenomegaly, masses or bruits noted Lymphatic: No lymphadenopathy, or lymphedema noted Integumentary: No rashes, hives, or bruising noted Neurologic: Patient is alert, and oriented, cranial nerves, motor/sensory/ cerebellar, exams w/o gross deficits, to observation Psychiatric: Patient exhibits, appropriate attention, emotion and affect Integumentary (brief) Integumentary Brief: FOUND: other (sallow skin color) Differential Diagnoses Considering: Acute DC, Hypo/Hyperglycemia, Hypo/Hyperkalemia, Hypo/ Hypernatremia, Medication Effect, Metabolic, Pneumonia, UTI, Other (anemia) Progress Results/Orders Orders Procedure Category Date Status Time EKG EKG 09/18/16 Logged Cbc W/Auto LAB 09/18/16 Complete Diff-Reflex Manual Cmp - Comprehensive LAB 09/18/16 Complete Metabolic Troponin I W LAB 09/18/16 Complete Hemolysis Index Iv Lock (Ed Only) EDM 09/18/16 Transmitted 21:49 Normal Saline (Normal PHA 09/18/16 Complete Saline Iv) 22:00 Ua, Dip Wreflex LAB 09/18/16 Logged [employer] Operation Evaluation Manager 21:49 Packed Cells BBK 09/18/16 Logged Leukoreduced 22:45 Packed Cells BBK 09/18/16 In Process Leukoreduced 22:47 Type And Screen BBK 09/18/16 In Process 22:47 Place In Facility As: ADMIT 09/18/16 Transmitted Lab Results Laboratory Tests Test 09/18/16 22:32 White Blood Count 8.5T/MM3 Red Blood Count 1.74M/MM3 Hemoglobin 4.8GM/DL Hematocrit 16.2% Mean Corpuscular Volume 93.1UM3 Mean Corpuscular Hemoglobin 27.6UUG Mean Corpuscular Hemoglobin Concent 29.6GM/DL RDW Standard Deviation 57.0FL Platelet Count 245T/MM3 Mean Platelet Volume 11.0UM3 Immature Granulocyte % (Auto) 1.1% Neutrophils (%) (Auto) 64.5% Lymphocytes (%) (Auto) 23.7% Monocytes (%) (Auto) 7.9% Eosinophils (%) (Auto) 1.6% Basophils (%) (Auto) 1.2% Absolute Immature Granulocyte (auto 0.09T/MM3 Absolute Neutrophils (auto) 5.5T/MM3 Absolute Lymphocytes (auto) 2.0T/MM3 Absolute Monocytes (auto) 0.7T/MM3 Absolute Eosinophils (auto) 0.1T/MM3 Absolute Basophils (auto) 0.1T/MM3 Turbidity < 20 Sodium Level 145MEQ/L Potassium Level 4.4MEQ/L Chloride Level 114MEQ/L Carbon Dioxide Level 23MEQ/L Anion Gap 8MEQ/L Blood Urea Nitrogen 28.0MG/DL Creatinine 0.9MG/DL Glomerular Filtration Rate Calc 63 BUN/Creatinine Ratio 31RATIO Glucose Level 124MG/DL Calculated Osmolality 286MOSM/KG Calcium Level 8.3MG/DL Total Bilirubin 0.60MG/DL Icterus Index < 2 Aspartate Amino Transf (AST/SGOT) 11U/L Alanine Aminotransferase (ALT/SGPT) 26U/L Alkaline Phosphatase 83U/L Troponin I < 0.012ng/ml Total Protein 4.9G/DL Albumin 2.7G/DL Globulin 2.2G/DL Albumin/Globulin Ratio 1.2RATIO Chemistry Specimen Hemolysis < 15 Medications Current ED Medications Sodium Chloride (Normal Saline IV) 1,000 ml @ 1,000 mls/hr Q1H ONCE IV Last administered on 09/18/16t 22:41; Start 09/18/16 at 22:00; Stop 09/18/16 at 22:59; Status DC Progress Progress Hgb is back at 4.8. T&S and crossmatch for 2 units PRBC order placed. She is heme positive on occult blood per rectal exam. Discussed findings with Dr. Yanes. He will accept patient for admission at this time. ASHISH FERGUSON APRN Sep 18, 2016 21:54
[2016-09-18] MEDS ORDERED: NORMAL SALINE 1,000 ML IV ONE (22:00)
[2016-09-18 22:37] LABS: BASOPHILS # (AUTO) 0.1 T/MM3 (0-0.2); BASOPHILS % (AUTO) 1.2 % (0-2); EOSINOPHILS # (AUTO) 0.1 T/MM3 (0-0.5); EOSINOPHILS % (AUTO) 1.6 % (0-4); IMMATURE GRANULOCYTE # (AUTO) 0.09 T/MM3 (0.00-0.03); IMMATURE GRANULOCYTE % (AUTO) 1.1 % (0.0-0.5); LYMPHOCYTES % (AUTO) 23.7 % (23-45); MEAN CORPUSCULAR HGB 27.6 UUG (26-34); MEAN CORPUSCULAR HGB CONC(MCHC 29.6 GM/DL (31-37); MEAN CORPUSCULAR VOLUME 93.1 UM3 (80-100); MONOCYTES # (AUTO) 0.7 T/MM3 (0-0.8); MONOCYTES % (AUTO) 7.9 % (0-9.0); NEUTROPHILS #(AUTO)-ABSOLUTE 5.5 T/MM3 (1.8-7.7); NEUTROPHILS % (AUTO) 64.5 % (33-66); RED BLOOD COUNT 1.74 M/MM3 (4.00-5.20); WBC - WHITE BLOOD COUNT 8.5 T/MM3 (4.5-11.0)
[2016-09-18 22:54] LABS: HCT - HEMATOCRIT 16.2 % (36-46); HGB - HEMOGLOBIN 4.8 GM/DL (12-16)
[2016-09-18 22:56] LABS: ALBUMIN 2.7 G/DL (3.5-5.0); ALBUMIN/GLOBULIN RATIO 1.2 RATIO (1.1-2.2); ALKALINE PHOSPHATASE 83 U/L (38-126); ALT (SGPT) 26 U/L (9-52); ANION GAP 8 MEQ/L (5-15); AST (SGOT) 11 U/L (14-36); BUN/CREATININE RATIO 31 RATIO (6-26); CALCIUM 8.3 MG/DL (8.4-10.2); CHLORIDE 114 MEQ/L (98-107); CO2 - CARBON DIOXIDE 23 MEQ/L (22-30); CREATININE 0.9 MG/DL (0.7-1.2); GLOMERULAR FILTRATION RATE 63; GLUCOSE 124 MG/DL (65-110); POTASSIUM 4.4 MEQ/L (3.6-5); SODIUM 145 MEQ/L (134-144); TOTAL PROTEIN 4.9 G/DL (6.3-8.2)
--- NOTE | 2016-09-18 23:11 | HPPDOC ---
HU GARCIA MD 09/18/16 2304: HPI - Adult Date DATE: 09/18/16 TIME: 22:59 General History of Present Illness This is a 61 y/o female w/ h/o IBS, anemia, chronic melena, AAA, Carotid artery aneurysm s/p stent and multiple other medical issues who presents to ED at [facility] [place] w / chief concern of several weeks h/o generalized weakness, exertional fatigue, diffuse muscle pains that have progressively worsened over the past few days. Patient states she has had chronic intermittent melena but no BRBPR. Patient had similar issue about one year ago and was noted to be anemic at that time. Patient is on Eliquis and ASA. In ED she was noted to have low BP w/ SBP of 77 that improved to high 90s after IV fluids, and her Hgb was noted to be 4.8. Typed and Crossed for 2 units - but blood transfusion was not given in ER. Patient admitted to the CCU on the Hospitalist service for further evaluation and management. Past Medical History Past Medical History Carotid artery aneursym s/p stent placement AAA - monitored for now per patient's report IBS Hypothyroidism HLD HTN Chronic pain H/o anemia Current Medications Home Meds Active Scripts Ondansetron (Zofran Odt) 4 Mg Tab.rapdis, 4 MG PO Q4HR Y for NAUSEA &/OR VOMITING for 3 Days, #18 TAB 0 Refills Prov:CHICHO LORENZO DO 09/01/16 Oxycodone HCl/Acetaminophen (Percocet 5-325 mg Tablet) 5-325 Tablet, 1 TAB PO Q4HR Y for PAIN for 3 Days, #18 TAB 0 Refills Prov:CHICHO LORENZO DO 09/01/16 Sotalol HCl (Betapace) 80 Mg Tablet, 40 MG PO ACBID, #60 TAB Prov:PURVI ELIZABETH PLOW MECHANIC 02/28/15 Reported Medications Hydrocodone/Apap (Jackson 5-325 Tablet) 5-325 Tablet, 1 TAB PO Q4-6HPRN 09/01/16 Potassium Chloride (Potassium Chloride) 20 Meq Tab.er.prt, 20 MEQ PO QD 09/01/16 Furosemide (Furosemide) 20 Mg Tablet, 20 MG PO QD 09/01/16 Levothyroxine Sodium (Levothyroxine Sodium) 100 Mcg Tablet, 100 MCG PO QD 09/01/16 Aspirin (Aspirin) 325 Mg Tablet, 325 MG PO DAILY, TAB 02/27/15 Atorvastatin Calcium (Atorvastatin Calcium) 40 Mg Tablet, 1 TAB PO HS, TAB 02/27/15 Gabapentin (Gabapentin) 100 Mg Capsule, 1 CAP PO DAILY, CAP 02/27/15 Escitalopram Oxalate (Escitalopram Oxalate) 20 Mg Tablet, 1 TAB PO DAILY, TAB 02/27/15 Allergies: Coded Allergies: Sulfa (Sulfonamide Antibiotics) (Verified Allergy, Unknown, UNKNOWN, ) THROAT SWELLING Uncoded Allergies: ZOMAX (Allergy, Unknown, HIVES, 02/27/15) Family History Family History: No significant family hstory reported Social History Smoking Status: Current every day smoker Substance Use Type: does not use Alcohol Intake: none Marital Status: Review of Systems All Other Systems Comments 10 point ROS negative except as otherwise noted in the HPI Physical Exam General General Nourishment: well nourished, well developed Vital Signs Vital Signs Date Time Temp Pulse Resp B/P Pulse Ox O2 Delivery O2 Flow Rate FiO2 09/18/16 21:31 97.6 72 14 75/38 99 Room Air Height (Feet): 5 Height (Inches): 3.00 Telemetry Rhythm: Sinus Rhythm Eyes Brief: FOUND: EOMI, PERRL, NOT FOUND: scleral icterus Neck Brief: FOUND: midline, NOT FOUND: JVD, nuchal rigidity, tracheal deviation Respiratory Brief: FOUND: clear all snow, NOT FOUND: rales, wheezes Cardiovascular (brief) Cardiac Brief: FOUND: regular rate, regular rhythm Abdomen (brief) Abdominal Brief: FOUND: BS normo active x4, soft, NOT FOUND: tender Neurologic RN Documented GCS Eye Opening: Verbal: Motor: Total: Psychiatric (brief) FOUND: alert, normal affect, oriented Laboratory Laboratory Tests Test 09/18/16 22:32 White Blood Count 8.5T/MM3 Red Blood Count 1.74M/MM3 Hemoglobin 4.8GM/DL Hematocrit 16.2% Mean Corpuscular Volume 93.1UM3 Mean Corpuscular Hemoglobin 27.6UUG Mean Corpuscular Hemoglobin Concent 29.6GM/DL RDW Standard Deviation 57.0FL Platelet Count 245T/MM3 Mean Platelet Volume 11.0UM3 Immature Granulocyte % (Auto) 1.1% Neutrophils (%) (Auto) 64.5% Lymphocytes (%) (Auto) 23.7% Monocytes (%) (Auto) 7.9% Eosinophils (%) (Auto) 1.6% Basophils (%) (Auto) 1.2% Absolute Immature Granulocyte (auto 0.09T/MM3 Absolute Neutrophils (auto) 5.5T/MM3 Absolute Lymphocytes (auto) 2.0T/MM3 Absolute Monocytes (auto) 0.7T/MM3 Absolute Eosinophils (auto) 0.1T/MM3 Absolute Basophils (auto) 0.1T/MM3 Turbidity < 20 Sodium Level 145MEQ/L Potassium Level 4.4MEQ/L Chloride Level 114MEQ/L Carbon Dioxide Level 23MEQ/L Anion Gap 8MEQ/L Blood Urea Nitrogen 28.0MG/DL Creatinine 0.9MG/DL Glomerular Filtration Rate Calc 63 BUN/Creatinine Ratio 31RATIO Glucose Level 124MG/DL Calculated Osmolality 286MOSM/KG Calcium Level 8.3MG/DL Total Bilirubin 0.60MG/DL Icterus Index < 2 Aspartate Amino Transf (AST/SGOT) 11U/L Alanine Aminotransferase (ALT/SGPT) 26U/L Alkaline Phosphatase 83U/L Total Protein 4.9G/DL Albumin 2.7G/DL Globulin 2.2G/DL Albumin/Globulin Ratio 1.2RATIO Chemistry Specimen Hemolysis < 15 Assessment & Plan Assessment 1) Acute Blood Loss Anemia POA and symptomatic 2) GI Bleed - possibly acute on chronic - patient on chronic anticoagulants 3) Acute Hypotension - blood loss and dehydration 4) AAA 5) Carotid artery aneurysm s/p stent placement and on Eliquis 6) HTN 7) HLD 8) IBS 9) Tobacco Use disorder Plan/Intensity of Service CCU admission Telemetry 2 units pRBCs IVFs Labs in AM Home meds as indicated Hold Eliquis and ASA for now Surgery consult SCDs Protonix Prn pain meds Prn Zofran Nicotine patch DVT Prophylaxis: SCD'S Code Status Hospital Course Summary Disclaimer The hospital course summary below is not to be considered part of the above Progress Note. ULISES NAVARRO MD 09/19/16 7481: Past Medical History Current Medications Home Meds Active Scripts Ondansetron (Zofran Odt) 4 Mg Tab.rapdis, 4 MG PO Q4HR Y for NAUSEA &/OR VOMITING for 3 Days, #18 TAB 0 Refills Prov:CHICHO LORENZO DO 09/01/16 Oxycodone HCl/Acetaminophen (Percocet 5-325 mg Tablet) 5-325 Tablet, 1 TAB PO Q4HR Y for PAIN for 3 Days, #18 TAB 0 Refills Prov:CHICHO LORENZO DO 09/01/16 Sotalol HCl (Betapace) 80 Mg Tablet, 40 MG PO ACBID, #60 TAB Prov:PURVI ELIZABETH PLOW MECHANIC 02/28/15 Reported Medications Hydrocodone/Apap (Jackson 5-325 Tablet) 5-325 Tablet, 1 TAB PO Q4-6HPRN 09/01/16 Potassium Chloride (Potassium Chloride) 20 Meq Tab.er.prt, 20 MEQ PO QD 09/01/16 Furosemide (Furosemide) 20 Mg Tablet, 20 MG PO QD 09/01/16 Levothyroxine Sodium (Levothyroxine Sodium) 100 Mcg Tablet, 100 MCG PO QD 09/01/16 Aspirin (Aspirin) 325 Mg Tablet, 325 MG PO DAILY, TAB 02/27/15 Atorvastatin Calcium (Atorvastatin Calcium) 40 Mg Tablet, 1 TAB PO HS, TAB 02/27/15 Gabapentin (Gabapentin) 100 Mg Capsule, 1 CAP PO DAILY, CAP 02/27/15 Escitalopram Oxalate (Escitalopram Oxalate) 20 Mg Tablet, 1 TAB PO DAILY, TAB 02/27/15 Allergies: Coded Allergies: Sulfa (Sulfonamide Antibiotics) (Verified Allergy, Unknown, UNKNOWN, ) THROAT SWELLING Uncoded Allergies: ZOMAX (Allergy, Unknown, HIVES, 02/27/15) Assessment & Plan Assessment 09/19/2016-Dr. Navarro I have independently interviewed and examined the patient. I've reviewed the chart. Above note reviewed and concur with the additions below. Chief complaint: weakness, fatigue and shortness of breath History of present illness: Patient is a 61-year-old female who had history of probable GI bleed about a year and a half ago. At that time she underwent EGD and barium enema and the source was not found. A colonoscopy was attempted but could not be performed. She did not have capsule endoscopy. She was on iron until June. At that time she stopped taking iron. She states her stools have been dark for a year and a half, even after she stopped taking iron because her insurance wouldn't pay for it. She stated that she's been having chronic abdominal pain and recently saw Dr. Dahl who diagnosed her with IBS and she was scheduled for an EGD in a couple of weeks. She been having progressive generalized weakness, exertional fatigue, shortness of breath and muscle pain in her legs with ambulation for the past 2 weeks. Yesterday became so severe that she went to the emergency room because shortness of breath had worsened. She was found to have hemoglobin of 4.8. She was then admitted for anemia and probable GI bleed. Past medical history: Agree with above with the addition of hypothyroidism, irritable bowel syndrome, paroxysmal atrial fibrillation for which she is on sotalol and in sinus rhythm. She sees Dr. Gurrola for cardiology care. Possible COPD. History of Deng's palsy. Carotid aneurysm for which she had stent placement by Dr Tacos vasquez a proximal one and half years ago. She was on Plavix and it was discontinued on his recommendation after follow-up. Chronic anticoagulation with Eliquis for atrial fibrillation. She has chronic pain of unknown cause Vertebral fractures last year after a fall Social history Tobaccoism since age 12, , Family history no family history of GI cancers. Mother of lung cancer likely from asbestos exposure Review of systems Patient complains of severe muscle pain in her legs when she walks. She has kyphosis or scoliosis of the spine. She developed muscle jerking in her left arm last night while eating dinner. Stumbling and gait instability the past week which she thinks is from weakness. Physical exam Patient was hypotensive on admission and developed hypoxia after initiation of blood and fluids. Currently vital signs are normal and saturation is 99-100% on room air GEN-alert, oriented, no acute distress HEENT-mild disconjugate gaze-which is not uncommon for her, sclera anicteric, pupils are equal, oropharynx is moist NECK-supple, no JVD CV-regular rate and rhythm CHEST-clear to auscultation bilaterally from the posterior Back -when sitting up, the patient does appear to have significant kyphosis ABD-soft, nontender, nondistended with positive bowel sounds -no Little EXT-no edema NEURO-no focal deficits SKIN-warm and dry Hemoglobin on admission was 4.8 in improved to 8.8 after transfusion. White count and platelets are normal. Differential is essentially normal. Lab shows sodium of 147 potassium of 3.8. BUN was 28 and is down to 23. Creatinine is normal at 0.8. Glucose of 84. Liver enzymes were essentially normal other than low protein of 4.9 and low albumin of 2.7. Troponin was normal at less than 0.012. Impression and plan Acute blood loss anemia on chronic anemia-serial hemoglobin, keep 2 units ahead Probable GI bleed-continue proton pump inhibitor, consult surgery for EGD consideration, placed 2 IVs, nothing by mouth, discontinue aspirin and eliquis Hypotension secondary to blood loss anemia-resolved Hypoxia-possibly from pulmonary edema with IV fluid rehydration and blood transfusion-resolved Possible COPD-breathing treatments and monitor with continuous oximetry Tobaccoism-recommend cessation Carotid stent 1-1/2 years ago-Plavix was discontinued remotely Chronic anticoagulation for paroxysmal atrial fibrillation Atrial fibrillation paroxysmal-currently in sinus rhythm, continue sotalol Hypothyroidism-check TSH and continue Synthroid Chronic pain-continue Jackson and gabapentin Abdominal aortic aneurysm 4.[address] Hartmann is the patient's vascular surgeon Exertional pain in legs-could be secondary to anemia but will check calcium, magnesium, phosphorus and CPK HU GARCIA MD Sep 18, 2016 23:04 ULISES NAVARRO MD Sep 19, 2016 14:22
--- OUTSIDE RECORDS SUMMARY | 2016-09-18 23:17 | XMS REPORT | Continuity of Care Document ---
Author Author [facility] Organization [facility] Address Unknown Phone Unavailable Allergies Active [...] Procedures Code Description Performed By Performed On [id number] EXCISION OF DUODENUM, ENDO, DIAGN Yamile Cheng [...] PLATELET COUNT 427 k/cumm 150-400 METABOLIC PANEL, [facility] - 08/02/15 03:06 POTASSIUM 4.3 mmol/L [...] Status Pt. Type Provider Facility Loc./Unit Complaint [id number] 08/01/2015 16:19:00 2015 17:34:00 DIS Inpatient [facility] [id number] [id number] 08/08/2014 17:14:00 Document Registration
[2016-09-18] MEDS: NORMAL SALINE 1,000 ML IV SCH (23:25)
[2016-09-18] MEDS ORDERED: NORMAL SALINE 500 ML IV SCH (23:29)
--- NOTE | 2016-09-18 23:40 | NUR ---
Admit Pt admitted to CCU2 at this time via cart from ED. Accompanied by ED RN, Johanna. Pt able to transfer self from cart to bed. Slight dizziness with standing. RNx1 assist, standby for safety. Denies discomfort. States, "I'm so tired." IV to right AC infusing NS wide open - 200cc remains in bag to finish. Pt's , Steve, at bedside.
--- NOTE | 2016-09-18 23:40 | NUR ---
ADMIT PT TO CCU #2 VIA CART. TRANSFERRED FROM CART TO BED INDEPENDENTLY. IV SITE IN PLACE. STATES DIZZINESS UPON SITTING UP, DENIES NEED FOR HELP TRANSFERRING. GAIT STABLE UPON TRANSFER. MINDY HARRIS AT BEDSIDE TO ASSUME CARE OF PT. PT AO AND ANSWERING QUESTIONS APPROPRIATELY.
[2016-09-18 23:45] VITALS: BP 107/52; PULSE 69; RESP 28; TEMP 98.6; O2SAT 96
[2016-09-18 23:51] VITALS: Ht 160 cm; Wt 72.6 kg
[2016-09-19] VITALS (54 sets, daily range): BP systolic 97–164; BP diastolic 41–87; PULSE 58–76; RESP 11–63; TEMP 97.6–98.4; O2SAT 86–100
[2016-09-19] MEDS ORDERED: HYDROCODONE/APAP 5 mg/325 mg TABLET PO SCH
[2016-09-19] MEDS ORDERED: FUROSEMIDE 20 MG TABLET PO SCH
[2016-09-19] MEDS ORDERED: LEVOTHYROXINE 100 MCG TABLET PO SCH
--- NOTE | 2016-09-19 00:42 | NUR ---
PRBC #1 1st unit PRBC started at this time. Pt educated on s/s of adverse reaction. Verbalizes understanding. VSS. RN remains at bedside. Infusion started at 60cc/hr for first 15 minutes. Pt denies s/s of reaction. Rate increased to 125cc/hr.
--- NOTE | 2016-09-19 01:00 | NUR ---
Pain Pt c/o pain to her "aneurysm area" and points to her epigastric region. RN contacted physician. Entered room to inquire if Morphine would be an appropriate medication for her discomfort. Pain had already resolved. PRN order received. Pt denies need for it at this time.
[2016-09-19] MEDS ORDERED: ONDANSETRON 4mg/2ml INJECTION IV PRN (01:15)
[2016-09-19] MEDS ORDERED: MORPHINE SULFATE 2 MG SYRINGE IV PRN (01:15)
[2016-09-19] MEDS: NICOTINE 14 MG PATCH TD SCH (01:34)
--- NOTE | 2016-09-19 03:50 | NUR ---
PRBC #2 2nd unit PRBCs started at this time. VSS. RN remains at bedside.
[2016-09-19] MEDS ORDERED: FUROSEMIDE 20 MG/2 ML INJECTION IV ONE (06:15)
[2016-09-19] MEDS ORDERED: ALBUTEROL/IPRATROPIUM INHAL. 2.5mg-0.5mg/3ml Neb. AEROSOL PRN (06:15)
--- NOTE | 2016-09-19 06:30 | NUR ---
Respiratory Respiratory distress episode this morning. Was on RA, however dropped to 60's. Pt struggling to catch her breath, panicking. Placed on 10L O2/SM. Contacted DR. Yanes. New orders for lasix IV and breathing treatment. RT contacted. Oxygenation improved following lasix administration. Able to wean O2 down. Mottling to bilateral upper legs noted during episode. Seemed to resolve once oxygenation improved. Pt denies anxiety. States "this has never happened before." Pt tearful.
[2016-09-19] MEDS: SOTALOL 80 MG TABLET PO SCH ×2 (06:48→17:50)
[2016-09-19 07:19] LABS: BASOPHILS # (AUTO) 0.1 T/MM3 (0-0.2); BASOPHILS % (AUTO) 1.1 % (0-2); EOSINOPHILS # (AUTO) 0.2 T/MM3 (0-0.5); EOSINOPHILS % (AUTO) 1.7 % (0-4); HCT - HEMATOCRIT 27.9 % (36-46); HGB - HEMOGLOBIN 8.8 GM/DL (12-16); IMMATURE GRANULOCYTE % (AUTO) 1.1 % (0.0-0.5); LYMPHOCYTES # (AUTO) 2.4 T/MM3 (1-4.8); LYMPHOCYTES % (AUTO) 26.3 % (23-45); MEAN CORPUSCULAR HGB 28.2 UUG (26-34); MEAN CORPUSCULAR HGB CONC(MCHC 31.5 GM/DL (31-37); MEAN CORPUSCULAR VOLUME 89.4 UM3 (80-100); MEAN PLATELET VOLUME 10.7 UM3 (9.4-12.4); MONOCYTES # (AUTO) 0.8 T/MM3 (0-0.8); MONOCYTES % (AUTO) 8.6 % (0-9.0); NEUTROPHILS #(AUTO)-ABSOLUTE 5.6 T/MM3 (1.8-7.7); NEUTROPHILS % (AUTO) 61.2 % (33-66); RED BLOOD COUNT 3.12 M/MM3 (4.00-5.20); WBC - WHITE BLOOD COUNT 9.1 T/MM3 (4.5-11.0)
[2016-09-19 07:29] LABS: ANION GAP 10 MEQ/L (5-15); BUN/CREATININE RATIO 29 RATIO (6-26); CHLORIDE 114 MEQ/L (98-107); CO2 - CARBON DIOXIDE 23 MEQ/L (22-30); CREATININE 0.8 MG/DL (0.7-1.2); GLOMERULAR FILTRATION RATE 73; GLUCOSE 84 MG/DL (65-110); POTASSIUM 3.8 MEQ/L (3.6-5); SODIUM 147 MEQ/L (134-144)
--- NOTE | 2016-09-19 07:55 | NUR ---
Shift Summary Pt slept off and on during the night. Awakes easily for cares. Denies pain, aside from a very short episode of epigastric pain. Respiratory distress episode this morning. Was on RA, however dropped to 60's. Pt struggling to catch her breath. Placed on 10L O2/SM. Contacted DR. Yanes. New orders for lasix IV and breathing treatment. RT contacted. Oxygenation improved following lasix administration. Able to wean O2 down. Up to BSC several times. Minimal assist. Pt becomes very SOA with any activity. VSS, aside from oxygenation issue.
[2016-09-19] MEDS: FUROSEMIDE 20 MG TABLET PO SCH (08:00)
[2016-09-19] MEDS ORDERED: PANTOPRAZOLE 40mg INJECTION IV SCH (09:00)
[2016-09-19] MEDS: NICOTINE PATCH REMOVAL TD SCH (09:00)
[2016-09-19] MEDS ORDERED: GABAPENTIN 100 MG CAPSULE PO SCH (09:00)
--- NOTE | 2016-09-19 09:05 | NUR ---
CONSULT Dr. Man notified of consult.
[2016-09-19] MEDS: LEVOTHYROXINE 100 MCG TABLET PO SCH (10:20)
[2016-09-19] MEDS: ESCITALOPRAM 20 MG TABLET PO SCH (10:21)
[2016-09-19] MEDS: NORMAL SALINE 1,000 ML IV SCH (13:22)
[2016-09-19] MEDS ORDERED: HYOS0.3730 PO (14:16)
[2016-09-19] MEDS ORDERED: APIX5TAB PO (14:16)
[2016-09-19] MEDS ORDERED: ISOS30TA6 PO (14:16)
[2016-09-19] MEDS: D5-1/2 NS KCL 20 MEQ 1,000 ML IV SCH (14:41)
[2016-09-19 15:05] LABS: PHOSPHORUS 3.6 MG/DL (2.5-4.5)
[2016-09-19 15:30] LABS: THYROID STIM HORMONE-TSH 3.12 MIU/L (0.47-4.68)
[2016-09-19 15:51] LABS: HGB - HEMOGLOBIN 8.2 GM/DL (12-16)
[2016-09-19] MEDS: HYDROCODONE/APAP 5 mg/325 mg TABLET PO PRN ×2 (16:03→22:06)
--- NOTE | 2016-09-19 16:15 | NUR ---
COMFORT Dr. Man and Dr. Navarro in to see patient. Patient c/o "bone pain" in her hips. Union given per request. May have ice chips. at bedside.
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
--- NOTE | 2016-09-19 17:45 | NUR ---
STATUS Patient has been sleeping. Denies pain at present. Family at bedside.
[2016-09-19 20:31] LABS: HGB - HEMOGLOBIN 8.3 GM/DL (12-16)
[2016-09-19] MEDS: ATORVASTATIN 40 MG TABLET PO SCH (22:04)
[2016-09-19 22:36] LABS: BLOOD, URINE 1+ (NEGATIVE); COLOR,URINE YELLOW (YELLOW); LEUKOCYTE ESTERASE ,URINE 1+ (NEGATIVE); NITRITE,URINE NEGATIVE (NEGATIVE)
[2016-09-19 22:41] LABS: BACTERIA,URINE TRACE (NEGATIVE); RBC,URINE 0-1 /HPF (0-3); SQUAMOUS EPITHELIAL CELL,UR 0-5
[2016-09-20] VITALS (24 sets, daily range): BP systolic 101–161; BP diastolic 56–77; PULSE 54–117; RESP 14–28; TEMP 96.6–98.4; O2SAT 91–100
[2016-09-20 02:54] LABS: FOLATE 4.6 NG/ML (2.76-20)
[2016-09-20 02:59] LABS: HCT - HEMATOCRIT 26.3 % (36-46); HGB - HEMOGLOBIN 8.3 GM/DL (12-16); MEAN CORPUSCULAR HGB 28.2 UUG (26-34); MEAN CORPUSCULAR HGB CONC(MCHC 31.6 GM/DL (31-37); MEAN CORPUSCULAR VOLUME 89.5 UM3 (80-100); MEAN PLATELET VOLUME 10.8 UM3 (9.4-12.4); RED BLOOD COUNT 2.94 M/MM3 (4.00-5.20)
[2016-09-20 03:09] LABS: ANION GAP 6 MEQ/L (5-15); BUN/CREATININE RATIO 23 RATIO (6-26); CALCIUM 8.2 MG/DL (8.4-10.2); CHLORIDE 115 MEQ/L (98-107); CO2 - CARBON DIOXIDE 24 MEQ/L (22-30); CREATININE 0.7 MG/DL (0.7-1.2); GLOMERULAR FILTRATION RATE 85; GLUCOSE 105 MG/DL (65-110); SODIUM 145 MEQ/L (134-144)
[2016-09-20] MEDS: D5-1/2 NS KCL 20 MEQ 1,000 ML IV SCH (04:10)
--- NOTE | 2016-09-20 05:37 | NUR ---
Shift Summary Pt slept off and on during the night. Awakes easily for cares. Up and walked the room yesterday evening with standby assist. C/o back pain from bedrest. PRN [place] administered. States she feels "much better." SOA not noted with activity, improved. VSS. Placed on 2L O2/NC during sleep due to desaturations to mid 80's. No s/s of bleeding. Hgb stable. Pt was tearful due to family dynamics. Daughter is having surgery tomorrow in [place]. Son has methamphetamine addiction since the age of 15. She currently cares for her 2 grandchildren as their mother is not able to. RN provided support and encouragement. Pt appreciated, states she "just needed to vent."
[2016-09-20 05:46] LABS: BAND NEUTROPHILS # 0.1 T/MM3; LYMPHOCYTES # (MANUAL) 1.9 T/MM3 (1-4.8); MONOCYTES # (MANUAL) 0.1 T/MM3 (0-0.8); NEUTROPHILS #(MANUAL)-ABSOLUTE 4.9 T/MM3 (1.8-7.7); TOTAL CELLS COUNTED 100 %
[2016-09-20] MEDS: SOTALOL 80 MG TABLET PO SCH ×2 (06:34→17:46)
[2016-09-20] MEDS: LEVOTHYROXINE 100 MCG TABLET PO SCH (06:34)
[2016-09-20 08:34] LABS: HGB - HEMOGLOBIN 8.8 GM/DL (12-16)
[2016-09-20] MEDS ORDERED: NICOTINE PATCH REMOVAL TD SCH (09:00)
[2016-09-20] MEDS: ESCITALOPRAM 20 MG TABLET PO SCH (09:00)
[2016-09-20] MEDS: NICOTINE 14 MG PATCH TD SCH (09:00)
[2016-09-20] MEDS: NICOTINE PATCH REMOVAL TD SCH (09:00)
[2016-09-20] MEDS: FUROSEMIDE 20 MG TABLET PO SCH (09:00)
--- NOTE | 2016-09-20 09:07 | PNPDOC ---
Subjective Date DATE: 09/20/16 TIME: 08:58 Subjective Patient states she's feeling better today. She is no longer short of breath. She no longer has pains in her legs when she is up walking. She has had no nausea or vomiting. No BM's. No abdominal pain. She has her chronic low back pain which is unchanged. No numbness, tingling or weakness anywhere. She denies any chest pains. She did well overnight with stable blood pressures and hemoglobins remained in the 8 range after receiving 2 units of blood yesterday. Objective Vital Signs Vital signs Vital Signs Date Time Temp Pulse Resp B/P Pulse Ox O2 Delivery O2 Flow Rate FiO2 09/20/16 06:34 62 09/20/16 04:29 18 09/20/16 04:12 125/58 98 Room Air 09/19/16 22:02 2.00 09/19/16 16:00 98.4 GEN-alert, oriented, no acute distress HEENT-sclera anicteric, oropharynx is moist NECK-supple CV-regular rate and rhythm with a 2/6 systolic murmur CHEST-clear to auscultation bilaterally ABD-soft, nontender, nondistended with positive bowel sounds -no Little EXT-no edema NEURO-alert and oriented 3, no focal deficits SKIN-warm and dry without rashes. Skin is mottled on her legs and feet and she states this is normal for her Telemetry Rhythm: Sinus Rhythm Height (Feet): 5 Height (Inches): 3.00 Weight (Kilograms): 73.500 Laboratory Laboratory Item Value Date Time Iron Level 47 UG/DL 09/19/16699 Total Iron Binding Capacity 321 UG/DL 09/19/16699 Percent Iron Saturation 15 % 09/19/16699 Vitamin B12 Level 250 PG/ML 09/19/16699 Folate 4.6 NG/ML 09/19/16699 Thyroid Stimulating Hormone (TSH) 3.12 MIU/L 09/19/16699 Phosphorus Level 3.6 MG/DL 09/19/16699 Magnesium Level 2.0 MG/DL 09/19/16 07 Laboratory Tests 09/18/16 22:32 09/19/16 06:57 09/20/16 02:48 Laboratory Tests 09/18/16 22:32 09/19/16 06:57 09/19/16 15:05 09/19/16 20:18 09/20/16 02:48 09/20/16 08:23 Assessment & Plan Assessment 09/20/2016 Impression and plan Acute blood loss anemia on chronic anemia-hemoglobin 4.8 on admission and transfused 2 units of blood and hemoglobin has been in the 8 range since Borderline B-12 deficiency Probably chronic GI bleed-continue proton pump inhibitor, Dr. Man consulted for EGD consideration. Continue off Aspirin and eliquis. Transfer to floor and start clear liquids if okay with Dr. Man Hypotension secondary to blood loss anemia-resolved post 2 units of blood Hypoxia-possibly from pulmonary edema with IV fluid rehydration and blood transfusion-resolved Possible COPD-breathing treatments and monitor with continuous oximetry Tobaccoism-recommend cessation Carotid stent 1-1/2 years ago-Plavix was discontinued remotely Chronic anticoagulation for paroxysmal atrial fibrillation Atrial fibrillation paroxysmal-currently in sinus rhythm, continue sotalol Hypothyroidism-TSH is in normal range, continue levothyroxine Chronic pain-continue [place] and gabapentin Abdominal aortic aneurysm 4.[address] Hartmann is the patient's vascular surgeon Exertional pain in legs sounds like claudication-likely secondary to anemia and has resolved post blood transfusion. Overall, the patient is doing much better. She is feeling much better. Possibly transfer to the floor today and start clear liquids. Start subcutaneous B-12 while in the hospital. Give oral folate and oral iron regarding anemia. Continue off of aspirin and eliquis DVT Prophylaxis: SCD'S Code Status Full Code Hospital Course Summary Disclaimer The hospital course summary below is not to be considered part of the above Progress Note. Hospital Course Summary 09/19/2016-Dr. Navarro I have independently interviewed and examined the patient. I've reviewed the chart. Above note reviewed and concur with the additions below. Chief complaint: weakness, fatigue and shortness of breath History of present illness: Patient is a 61-year-old female who had history of probable GI bleed about a year and a half ago. At that time she underwent EGD and barium enema and the source was not found. A colonoscopy was attempted but could not be performed. She did not have capsule endoscopy. She was on iron until June. At that time she stopped taking iron. She states her stools have been dark for a year and a half, even after she stopped taking iron because her insurance wouldn't pay for it. She stated that she's been having chronic abdominal pain and recently saw Dr. Dahl who diagnosed her with IBS and she was scheduled for an EGD in a couple of weeks. She been having progressive generalized weakness, exertional fatigue, shortness of breath and muscle pain in her legs with ambulation for the past 2 weeks. Yesterday became so severe that she went to the emergency room because shortness of breath had worsened. She was found to have hemoglobin of 4.8. She was then admitted for anemia and probable GI bleed. Past medical history: Agree with above with the addition of hypothyroidism, irritable bowel syndrome, paroxysmal atrial fibrillation for which she is on sotalol and in sinus rhythm. She sees Dr. Gurrola for cardiology care. Possible COPD. History of Deng's palsy. Carotid aneurysm for which she had stent placement by Dr Tacos vasquez a proximal one and half years ago. She was on Plavix and it was discontinued on his recommendation after follow-up. Chronic anticoagulation with Eliquis for atrial fibrillation. She has chronic pain of unknown cause Vertebral fractures last year after a fall Social history Tobaccoism since age 12, , Family history no family history of GI cancers. Mother of lung cancer likely from asbestos exposure Review of systems Patient complains of severe muscle pain in her legs when she walks. She has kyphosis or scoliosis of the spine. She developed muscle jerking in her left arm last night while eating dinner. Stumbling and gait instability the past week which she thinks is from weakness. Physical exam Patient was hypotensive on admission and developed hypoxia after initiation of blood and fluids. Currently vital signs are normal and saturation is 99-100% on room air GEN-alert, oriented, no acute distress HEENT-mild disconjugate gaze-which is not uncommon for her, sclera anicteric, pupils are equal, oropharynx is moist NECK-supple, no JVD CV-regular rate and rhythm CHEST-clear to auscultation bilaterally from the posterior Back -when sitting up, the patient does appear to have significant kyphosis ABD-soft, nontender, nondistended with positive bowel sounds -no Little EXT-no edema NEURO-no focal deficits SKIN-warm and dry Hemoglobin on admission was 4.8 in improved to 8.8 after transfusion. White count and platelets are normal. Differential is essentially normal. Lab shows sodium of 147 potassium of 3.8. BUN was 28 and is down to 23. Creatinine is normal at 0.8. Glucose of 84. Liver enzymes were essentially normal other than low protein of 4.9 and low albumin of 2.7. Troponin was normal at less than 0.012. Impression and plan Acute blood loss anemia on chronic anemia-serial hemoglobin, keep 2 units ahead Probable GI bleed-continue proton pump inhibitor, consult surgery for EGD consideration, placed 2 IVs, nothing by mouth, discontinue aspirin and eliquis Hypotension secondary to blood loss anemia-resolved Hypoxia-possibly from pulmonary edema with IV fluid rehydration and blood transfusion-resolved Possible COPD-breathing treatments and monitor with continuous oximetry Tobaccoism-recommend cessation Carotid stent 1-1/2 years ago-Plavix was discontinued remotely Chronic anticoagulation for paroxysmal atrial fibrillation Atrial fibrillation paroxysmal-currently in sinus rhythm, continue sotalol Hypothyroidism-check TSH and continue Synthroid Chronic pain-continue [place] and gabapentin Abdominal aortic aneurysm 4.[address] Hartmann is the patient's vascular surgeon Exertional pain in legs-could be secondary to anemia but will check calcium, magnesium, phosphorus and CPK ULISES NAVARRO MD Sep 20, 2016 09:01
[2016-09-20] MEDS: PANTOPRAZOLE 40mg INJECTION IV SCH ×2 (09:13→20:50)
[2016-09-20] MEDS: FOLIC ACID 1 MG TABLET PO SCH (09:50)
[2016-09-20] MEDS: ISOSORBIDE MONONITRATE ER 30 MG TABLET PO SCH (09:50)
[2016-09-20] MEDS: CYANOCOBALAMIN (B-12) 1000mcg/ml INJECTION SQ SCH (09:52)
--- NOTE | 2016-09-20 11:40 | CONSPD ---
KILO GANT MASSAGE OPERATOR 09/20/16 1111: Consultation Info Date DATE: 09/20/16 TIME: 10:57 Date of Consultation: Sep 20, 2016 Attending Physician: April Navarro MD Reason for Consultation: arrhythmia, GI bleed HPI - Adult Date DATE: 09/20/16 TIME: 10:57 General Date of Admission Date of Admission: Sep 18, 2016 at 23:07 Chief Complaint: weakness History of Present Illness Angélica is a 61 year old female well known to Dr. Gurrola with a history paroxysmal atrial fibrillation, CAD, HTN, HLD, nicotine dependence, IBS, anemia , chronic melena, AAA, Carotid artery aneurysm s/p stent and multiple other medical issues who presented to ED with chief concern of several weeks of generalized weakness, exertional fatigue, diffuse muscle pains that have progressively worsened over the past few days. She states she has had chronic intermittent melena and had similar issue about one year ago and was noted to be anemic at that time. She is on Eliquis and ASA which is being held. In ED she was noted to have low BP w/ SBP of 77 that improved to high 90s after IV fluids, and her Hgb was noted to be 4.8. Typed and Crossed for 2 units. She was admitted to the CCU on the Hospitalist service for further evaluation and management. Dr. Gurrola is consulted due to arrhythmia and GI bleed She is seen in her room in CCU Past Medical History Past Medical History Metabolic: diabetes, hypertension Cardiac: A-fib, CAD, other Respiratory: COPD GI: IBS, other Female: UTI, pyelonephritis Musculoskeletal: osteoarthritis Psychological: anxiety, depression Surgical History General: appendix, gallbladder, other Reproductive/: D&C, hysterectomy Current Medications Home Meds Active Scripts Cyanocobalamin (Vitamin B-12) (Vitamin B-12) 1,000 Mcg Tablet, 1 TAB PO DAILY, # 30 TAB 2 Refills Prov:JONNY JOSÉ MD 09/22/16 Folic Acid (Folic Acid) 1 Mg Tablet, 1 MG PO DAILY, #60 TAB Prov:JONNY JOSÉ MD 09/22/16 Sucralfate (Carafate) 1 Gm Tablet, 1 G PO ACHS for gastritis for 30 Days, TAB Prov:JONNY JOSÉ MD 09/22/16 Omeprazole (Omeprazole) 20 Mg Capsule.dr, 20 MG PO ACBID, #60 CAP Take twice daily for 10 days and then once daily for 6 weeks Prov:JONNY JOSÉ MD 09/22/16 Ferrous Sulfate (Ferrous Sulfate) 324 Mg Tablet.dr, 324 MG PO WB for anemia, # 100 TAB Prov:JONNY JOSÉ MD 09/22/16 Nicotine (Nicotine Patch 14 mg/24 hr) 1 Each Patch.td24, 14 MG TD DAILY for 14 Days Prov:JONNY JOSÉ MD 09/22/16 Ondansetron (Zofran Odt) 4 Mg Tab.rapdis, 4 MG PO Q4HR Y for NAUSEA &/OR VOMITING for 3 Days, #18 TAB 0 Refills Prov:CHICHO LORENZO DO 09/01/16 Sotalol HCl (Betapace) 80 Mg Tablet, 40 MG PO ACBID, #60 TAB Prov:PURVI ELIZABETH MASSAGE OPERATOR 02/28/15 Reported Medications Hyoscyamine (Levbid) 0.375 Mg Tablet, 1 TAB PO BID, #60 TAB 2 Refills 09/19/16 Hydrocodone/Apap ([place] 5-325 Tablet) 5-325 Tablet, 1 TAB PO Q4-6HPRN 09/01/16 Levothyroxine Sodium (Levothyroxine Sodium) 100 Mcg Tablet, 100 MCG PO QD 09/01/16 Atorvastatin Calcium (Atorvastatin Calcium) 40 Mg Tablet, 1 TAB PO HS, TAB 02/27/15 Gabapentin (Gabapentin) 100 Mg Capsule, 1 CAP PO DAILY, CAP 02/27/15 Escitalopram Oxalate (Escitalopram Oxalate) 20 Mg Tablet, 1 TAB PO DAILY, TAB 02/27/15 Discontinued Reported Medications Apixaban (Eliquis) 5 Mg Tablet, PO DAILY 09/19/16 Isosorbide Mononitrate (Isosorbide Mononitrate ER) 30 Mg Tab.er.24h, 1 TAB PO DAILY, #30 TAB 09/19/16 Potassium Chloride (Potassium Chloride) 20 Meq Tab.er.prt, 20 MEQ PO QD 09/01/16 Furosemide (Furosemide) 20 Mg Tablet, 20 MG PO QD 09/01/16 Aspirin (Aspirin) 325 Mg Tablet, 325 MG PO DAILY, TAB 02/27/15 Discontinued Scripts Oxycodone HCl/Acetaminophen (Percocet 5-325 mg Tablet) 5-325 Tablet, 1 TAB PO Q4HR Y for PAIN for 3 Days, #18 TAB 0 Refills Prov:CHICHO LORENZO DO 09/01/16 Allergies: Coded Allergies: Sulfa (Sulfonamide Antibiotics) (Verified Allergy, Unknown, UNKNOWN, ) THROAT SWELLING Uncoded Allergies: ZOMAX (Allergy, Unknown, HIVES, 02/27/15) Family History FOUND: CAD, cancer (lung- mother) Vaccines NOT UP TO DATE No Social History Smoking Status: Current every day smoker Substance Use Type: does not use Alcohol Intake: none Marital Status: Advance Directives: No DPOA for Healthcare Only Review of Systems Constitutional: REPORTS: fatigue, weakness, DENIES: chills, dizziness, fever Eyes Vision: DENIES: double vision ENMT Hearing: DENIES: tinnitus Balance: DENIES: vertigo Sinuses: NOT FOUND: rhinorrhea Mouth/Throat: DENIES: sore throat Cardiovascular DENIES: chest pain, dyspnea on exertion, murmur, orthopnea Rhythm/Rate: irregular beat, palpitations Pulmonary Respiratory: DENIES: cough, sputum GI Upper Abdomen: DENIES: nausea, vomiting Lower Abdomen: blood in stool, melena, see HPI, DENIES: constipation General: DENIES: dysuria Integumentary Skin: DENIES: rash, sores Neurological General: weakness, DENIES: headache, numbness, seizures, syncope All Other Systems All Other Systems: Reviewed (remainder of 10-point ROS Neg.) Physical Exam General General Nourishment: well nourished, well developed, apparent age Vital Signs Vital Signs Date Time Temp Pulse Resp B/P Pulse Ox O2 Delivery O2 Flow Rate FiO2 09/20/16 06:34 62 09/20/16 04:29 18 09/20/16 04:12 125/58 98 Room Air 09/19/16 22:02 2.00 09/19/16 16:00 98.4 Height (Feet): 5 Height (Inches): 3.00 Telemetry Rhythm: Sinus Rhythm ENMT Brief: FOUND: mucosa moist Neck Brief: NOT FOUND: JVD, carotid bruits Respiratory Brief: FOUND: clear all snow, equal bilaterally, NOT FOUND: rales , wheezes Cardiovascular (brief) Cardiac Brief: FOUND: murmur (2/6), regular rate, regular rhythm, NOT FOUND: pedal edema Abdomen (brief) Abdominal Brief: FOUND: BS normo active x4, soft, NOT FOUND: tender Integumentary (brief) Integumentary Brief: FOUND: dry, pink, warm Neurologic RN Documented GCS Eye Opening: (4)Spontaneous Verbal: (5)Oriented Motor: (6)Obeys Commands Total: Psychiatric (brief) FOUND: alert, attentive, oriented Laboratory Laboratory Tests Test 09/18/16 22:32 09/19/16 06:57 09/19/16 07:00 09/19/16 15:05 White Blood Count 8.5T/MM3 9.1T/MM3 Red Blood Count 1.74M/MM3 3.12M/MM3 Hemoglobin 4.8GM/DL 8.8GM/DL 8.2GM/DL Hematocrit 16.2% 27.9% Mean Corpuscular Volume 93.1UM3 89.4UM3 Mean Corpuscular Hemoglobin 27.6UUG 28.2UUG Mean Corpuscular Hemoglobin Concent 29.6GM/DL 31.5GM/DL RDW Standard Deviation 57.0FL 47.8FL Platelet Count 245T/MM3 226T/MM3 Mean Platelet Volume 11.0UM3 10.7UM3 Immature Granulocyte % (Auto) 1.1% 1.1% Neutrophils (%) (Auto) 64.5% 61.2% Lymphocytes (%) (Auto) 23.7% 26.3% Monocytes (%) (Auto) 7.9% 8.6% Eosinophils (%) (Auto) 1.6% 1.7% Basophils (%) (Auto) 1.2% 1.1% Absolute Immature Granulocyte (auto 0.09T/MM3 0.10T/MM3 Absolute Neutrophils (auto) 5.5T/MM3 5.6T/MM3 Absolute Lymphocytes (auto) 2.0T/MM3 2.4T/MM3 Absolute Monocytes (auto) 0.7T/MM3 0.8T/MM3 Absolute Eosinophils (auto) 0.1T/MM3 0.2T/MM3 Absolute Basophils (auto) 0.1T/MM3 0.1T/MM3 Turbidity < 20 < 20 Sodium Level 145MEQ/L 147MEQ/L Potassium Level 4.4MEQ/L 3.8MEQ/L Chloride Level 114MEQ/L 114MEQ/L Carbon Dioxide Level 23MEQ/L 23MEQ/L Anion Gap 8MEQ/L 10MEQ/L Blood Urea Nitrogen 28.0MG/DL 23.0MG/DL Creatinine 0.9MG/DL 0.8MG/DL Glomerular Filtration Rate Calc 63 73 BUN/Creatinine Ratio 31RATIO 29RATIO Glucose Level 124MG/DL 84MG/DL Calculated Osmolality 286MOSM/KG 285MOSM/KG Calcium Level 8.3MG/DL 8.0MG/DL Total Bilirubin 0.60MG/DL Icterus Index < 2 < 2 Aspartate Amino Transf (AST/SGOT) 11U/L Alanine Aminotransferase (ALT/SGPT) 26U/L Alkaline Phosphatase 83U/L Troponin I < 0.012ng/ml Total Protein 4.9G/DL Albumin 2.7G/DL Globulin 2.2G/DL Albumin/Globulin Ratio 1.2RATIO Chemistry Specimen Hemolysis < 15 < 15 Magnesium Level 2.0MG/DL 2.0MG/DL Phosphorus Level 3.6MG/DL Iron Level 47UG/DL Total Iron Binding Capacity 321UG/DL Percent Iron Saturation 15% Total Creatine Kinase 56U/L Vitamin B12 Level 250PG/ML Folate 4.6NG/ML Thyroid Stimulating Hormone (TSH) 3.12MIU/L Test 09/19/16 20:18 09/19/16 22:28 09/20/16 02:48 09/20/16 08:23 Hemoglobin 8.3GM/DL 8.3GM/DL 8.8GM/DL Urine Collection Type Cleancatch-midstream Urine Color Yellow Urine Turbidity Clear Urine pH 6.5 Urine Specific [place] 1.010 Urine Protein Negative Urine Glucose (UA) Negative Urine Ketones Negative Urine Blood 1+ Urine Nitrite Negative Urine Bilirubin Negative Urine Urobilinogen 1.0EU/DL Urine Leukocyte Esterase 1+ Urine RBC 0-1/HPF Urine WBC 1-3/HPF Urine Squamous Epithelial Cells 0-5 Urine Bacteria Trace Urine Culture Indicated Cult not indicated White Blood Count 7.0T/MM3 Red Blood Count 2.94M/MM3 Hematocrit 26.3% Mean Corpuscular Volume 89.5UM3 Mean Corpuscular Hemoglobin 28.2UUG Mean Corpuscular Hemoglobin Concent 31.6GM/DL RDW Standard Deviation 52.8FL Platelet Count 236T/MM3 Mean Platelet Volume 10.8UM3 Neutrophils % (Manual) 70.0% Band Neutrophils % 1.0% Lymphocytes % (Manual) 27.0% Monocytes % (Manual) 2.0% Absolute Neutrophils (Manual) 4.9T/MM3 Band Neutrophils # 0.1T/MM3 Lymphocytes # (Manual) 1.9T/MM3 Monocytes # (Manual) 0.1T/MM3 Red Cell Morphology Comment Normal Turbidity < 20 Sodium Level 145MEQ/L Potassium Level 4.0MEQ/L Chloride Level 115MEQ/L Carbon Dioxide Level 24MEQ/L Anion Gap 6MEQ/L Blood Urea Nitrogen 16.0MG/DL Creatinine 0.7MG/DL Glomerular Filtration Rate Calc 85 BUN/Creatinine Ratio 23RATIO Glucose Level 105MG/DL Calculated Osmolality 280MOSM/KG Calcium Level 8.2MG/DL Icterus Index < 2 Chemistry Specimen Hemolysis < 15 Test 09/20/16 09:47 Stool Occult Blood Positive Laboratory Tests Test 09/18/16 22:32 09/19/16 06:57 09/19/16 07:00 09/19/16 15:05 White Blood Count 8.5T/MM3 9.1T/MM3 Red Blood Count 1.74M/MM3 3.12M/MM3 Hemoglobin 4.8GM/DL 8.8GM/DL 8.2GM/DL Hematocrit 16.2% 27.9% Mean Corpuscular Volume 93.1UM3 89.4UM3 Mean Corpuscular Hemoglobin 27.6UUG 28.2UUG Mean Corpuscular Hemoglobin Concent 29.6GM/DL 31.5GM/DL RDW Standard Deviation 57.0FL 47.8FL Platelet Count 245T/MM3 226T/MM3 Mean Platelet Volume 11.0UM3 10.7UM3 Immature Granulocyte % (Auto) 1.1% 1.1% Neutrophils (%) (Auto) 64.5% 61.2% Lymphocytes (%) (Auto) 23.7% 26.3% Monocytes (%) (Auto) 7.9% 8.6% Eosinophils (%) (Auto) 1.6% 1.7% Basophils (%) (Auto) 1.2% 1.1% Absolute Immature Granulocyte (auto 0.09T/MM3 0.10T/MM3 Absolute Neutrophils (auto) 5.5T/MM3 5.6T/MM3 Absolute Lymphocytes (auto) 2.0T/MM3 2.4T/MM3 Absolute Monocytes (auto) 0.7T/MM3 0.8T/MM3 Absolute Eosinophils (auto) 0.1T/MM3 0.2T/MM3 Absolute Basophils (auto) 0.1T/MM3 0.1T/MM3 Turbidity < 20 < 20 Sodium Level 145MEQ/L 147MEQ/L Potassium Level 4.4MEQ/L 3.8MEQ/L Chloride Level 114MEQ/L 114MEQ/L Carbon Dioxide Level 23MEQ/L 23MEQ/L Anion Gap 8MEQ/L 10MEQ/L Blood Urea Nitrogen 28.0MG/DL 23.0MG/DL Creatinine 0.9MG/DL 0.8MG/DL Glomerular Filtration Rate Calc 63 73 BUN/Creatinine Ratio 31RATIO 29RATIO Glucose Level 124MG/DL 84MG/DL Calculated Osmolality 286MOSM/KG 285MOSM/KG Calcium Level 8.3MG/DL 8.0MG/DL Total Bilirubin 0.60MG/DL Icterus Index < 2 < 2 Aspartate Amino Transf (AST/SGOT) 11U/L Alanine Aminotransferase (ALT/SGPT) 26U/L Alkaline Phosphatase 83U/L Troponin I < 0.012ng/ml Total Protein 4.9G/DL Albumin 2.7G/DL Globulin 2.2G/DL Albumin/Globulin Ratio 1.2RATIO Chemistry Specimen Hemolysis < 15 < 15 Magnesium Level 2.0MG/DL 2.0MG/DL Phosphorus Level 3.6MG/DL Iron Level 47UG/DL Total Iron Binding Capacity 321UG/DL Percent Iron Saturation 15% Total Creatine Kinase 56U/L Vitamin B12 Level 250PG/ML Folate 4.6NG/ML Thyroid Stimulating Hormone (TSH) 3.12MIU/L Test 09/19/16 20:18 09/19/16 22:28 09/20/16 02:48 09/20/16 08:23 Hemoglobin 8.3GM/DL 8.3GM/DL 8.8GM/DL Urine Collection Type Cleancatch-midstream Urine Color Yellow Urine Turbidity Clear Urine pH 6.5 Urine Specific [place] 1.010 Urine Protein Negative Urine Glucose (UA) Negative Urine Ketones Negative Urine Blood 1+ Urine Nitrite Negative Urine Bilirubin Negative Urine Urobilinogen 1.0EU/DL Urine Leukocyte Esterase 1+ Urine RBC 0-1/HPF Urine WBC 1-3/HPF Urine Squamous Epithelial Cells 0-5 Urine Bacteria Trace Urine Culture Indicated Cult not indicated White Blood Count 7.0T/MM3 Red Blood Count 2.94M/MM3 Hematocrit 26.3% Mean Corpuscular Volume 89.5UM3 Mean Corpuscular Hemoglobin 28.2UUG Mean Corpuscular Hemoglobin Concent 31.6GM/DL RDW Standard Deviation 52.8FL Platelet Count 236T/MM3 Mean Platelet Volume 10.8UM3 Neutrophils % (Manual) 70.0% Band Neutrophils % 1.0% Lymphocytes % (Manual) 27.0% Monocytes % (Manual) 2.0% Absolute Neutrophils (Manual) 4.9T/MM3 Band Neutrophils # 0.1T/MM3 Lymphocytes # (Manual) 1.9T/MM3 Monocytes # (Manual) 0.1T/MM3 Red Cell Morphology Comment Normal Turbidity < 20 Sodium Level 145MEQ/L Potassium Level 4.0MEQ/L Chloride Level 115MEQ/L Carbon Dioxide Level 24MEQ/L Anion Gap 6MEQ/L Blood Urea Nitrogen 16.0MG/DL Creatinine 0.7MG/DL Glomerular Filtration Rate Calc 85 BUN/Creatinine Ratio 23RATIO Glucose Level 105MG/DL Calculated Osmolality 280MOSM/KG Calcium Level 8.2MG/DL Icterus Index < 2 Chemistry Specimen Hemolysis < 15 Test 09/20/16 09:47 Stool Occult Blood Positive Impression/Recommendation Problems: (1) GI bleed Status: Acute Assessment & Plan: Stop Eliquis. Hgb 8.8, up from 4.8 on admission. Received 2 units PRBCs (2) Paroxysmal atrial fibrillation Status: Chronic Assessment & Plan: Continue Sotalol 40mg po BID. Eliquis stopped, not a good candidate for anticoagulation. Has a history of recurrent GI bleeding. (3) Atherosclerotic heart disease of [place] coronary artery without angina pectoris Status: Chronic Assessment & Plan: Continue Atorvastatin, BB (4) Essential (primary) hypertension Status: Chronic Assessment & Plan: Continue BB, Lasix with potassium supplement (5) Mixed hyperlipidemia Status: Chronic Assessment & Plan: Takes Atorvastatin (6) Cigarette nicotine dependence, uncomplicated Status: Chronic (7) Carotid aneurysm, right Status: Chronic Recommendation AFib:Continue Sotalol 40mg po BID. Eliquis stopped, not a good candidate for anticoagulation. Has a history of recurrent GI bleeding. Thank you for allowing us to participate in the care of this patient. We will follow along with you. GIOVANI GURROLA MD 09/24/16 1524: Past Medical History Current Medications Home Meds Active Scripts Cyanocobalamin (Vitamin B-12) (Vitamin B-12) 1,000 Mcg Tablet, 1 TAB PO DAILY, # 30 TAB 2 Refills Prov:JONNY JOSÉ MD 09/22/16 Folic Acid (Folic Acid) 1 Mg Tablet, 1 MG PO DAILY, #60 TAB Prov:JONNY JOSÉ MD 09/22/16 Sucralfate (Carafate) 1 Gm Tablet, 1 G PO ACHS for gastritis for 30 Days, TAB Prov:JONNY JOSÉ MD 09/22/16 Omeprazole (Omeprazole) 20 Mg Capsule.dr, 20 MG PO ACBID, #60 CAP Take twice daily for 10 days and then once daily for 6 weeks Prov:JONNY JOSÉ MD 09/22/16 Ferrous Sulfate (Ferrous Sulfate) 324 Mg Tablet.dr, 324 MG PO WB for anemia, # 100 TAB Prov:JONNY JOSÉ MD 09/22/16 Nicotine (Nicotine Patch 14 mg/24 hr) 1 Each Patch.td24, 14 MG TD DAILY for 14 Days Prov:JONNY JOSÉ MD 09/22/16 Ondansetron (Zofran Odt) 4 Mg Tab.rapdis, 4 MG PO Q4HR Y for NAUSEA &/OR VOMITING for 3 Days, #18 TAB 0 Refills Prov:CHICHO LORENZO DO 09/01/16 Sotalol HCl (Betapace) 80 Mg Tablet, 40 MG PO ACBID, #60 TAB Prov:PURVI ELIZABETH APRN 02/28/15 Reported Medications Hyoscyamine (Levbid) 0.375 Mg Tablet, 1 TAB PO BID, #60 TAB 2 Refills 09/19/16 Hydrocodone/Apap ([place] 5-325 Tablet) 5-325 Tablet, 1 TAB PO Q4-6HPRN 09/01/16 Levothyroxine Sodium (Levothyroxine Sodium) 100 Mcg Tablet, 100 MCG PO QD 09/01/16 Atorvastatin Calcium (Atorvastatin Calcium) 40 Mg Tablet, 1 TAB PO HS, TAB 02/27/15 Gabapentin (Gabapentin) 100 Mg Capsule, 1 CAP PO DAILY, CAP 02/27/15 Escitalopram Oxalate (Escitalopram Oxalate) 20 Mg Tablet, 1 TAB PO DAILY, TAB 02/27/15 Discontinued Reported Medications Apixaban (Eliquis) 5 Mg Tablet, PO DAILY 09/19/16 Isosorbide Mononitrate (Isosorbide Mononitrate ER) 30 Mg Tab.er.24h, 1 TAB PO DAILY, #30 TAB 09/19/16 Potassium Chloride (Potassium Chloride) 20 Meq Tab.er.prt, 20 MEQ PO QD 09/01/16 Furosemide (Furosemide) 20 Mg Tablet, 20 MG PO QD 09/01/16 Aspirin (Aspirin) 325 Mg Tablet, 325 MG PO DAILY, TAB 02/27/15 Discontinued Scripts Oxycodone HCl/Acetaminophen (Percocet 5-325 mg Tablet) 5-325 Tablet, 1 TAB PO Q4HR Y for PAIN for 3 Days, #18 TAB 0 Refills Prov:CHICHO LORENZO DO 09/01/16 Allergies: Coded Allergies: Sulfa (Sulfonamide Antibiotics) (Verified Allergy, Unknown, UNKNOWN, ) THROAT SWELLING Uncoded Allergies: ZOMAX (Allergy, Unknown, HIVES, 02/27/15) Impression/Recommendation Recommendation After examining the patient I agree with the above assessment. I am involved in the formulation of the patient's plan of care. KILO GANT APRN Sep 20, 2016 11:11 GIOVANI GURROLA MD Sep 24, 2016 15:24
[2016-09-20] MEDS: POTASSIUM CHLORIDE 20 MEQ TABLET PO SCH (12:48)
--- NOTE | 2016-09-20 14:06 | NUR ---
SHANE CM IN TO VISIT PT. CM EXPLAINED ROLE AND PROVIDED CONTACT INFORMATION. PT PLANS TO DC HOME AND REPORTS SHE NEEDS HELP WITH HOUSEWORK NOT SELF CARE WILL TALK WITH PT CLOSER TO DC TO PROVIDE HH INFORMATION.
[2016-09-20] MEDS: LORAZEPAM 0.5 MG TABLET PO PRN (14:08)
--- NOTE | 2016-09-20 14:13 | NUR ---
PSYCHE PATIENT TEARFUL RE DAUGHTER'S SURGERY TOMORROW AND HER INABILITY TO BE THERE TO ASSIST HER; SISTER IS HOSPITAL WELL. ATIVAN 0.5 MG PO GIVEN. KHADRA CONTACTED, WILL VISIT WITH PATIENT.
[2016-09-20 14:24] LABS: HGB - HEMOGLOBIN 8.9 GM/DL (12-16)
--- NOTE | 2016-09-20 16:20 | NUR ---
ADMIT PT TO ROOM 147 PER [facility] [place] [facility] [place] PERSONAL BELONGINGS INCLUDING HOME MEDS IN ROOM WELL. PT C/O [place] AT THIS TIME. RATES 7-01/27. REQUESTING PAIN MEDS.
--- NOTE | 2016-09-20 16:22 | NUR ---
TRANSFERRED PER [facility]/ [facility] BY Sandy GIMENEZ RN FROM CCU-2 TO MEDICAL UNIT 147. AWAKE, ALERT, ORIENTED. NOT TEARFUL AT THIS TIME. MONITOR SINUS ESTEFANY-SINUS RHYTHM.
[2016-09-20] MEDS: HYDROCODONE/APAP 5 mg/325 mg TABLET PO PRN ×2 (16:40→23:17)
--- NOTE | 2016-09-20 16:50 | PNF ---
DATE OF VISIT 09/20/2016 REASON FOR VISIT Follow GI bleed. SUBJECTIVE Angélica denies any abdominal pain. She has not had any melanotic stools or emesis. OBJECTIVE VITAL SIGNS: Temperature 98.0, pulse 60, blood pressure 131/61, respiratory rate 14, oxygen saturation 98% on room air. GENERAL: The patient is awake and alert, in no acute distress. ABDOMEN: Soft, nontender, nondistended. LABORATORY DATA Hemoglobin since yesterday afternoon was 8.2, 8.3, 8.3, and 8.8 on serial checks. ASSESSMENT 1. Melanotic stools. 2. Daily use of Eliquis and aspirin--currently on hold. 3. Anemia secondary to chronic GI blood loss--stable after transfusion. PLAN 1. I do think it would be reasonable to start Angélica on a clear liquid diet and transfer her to the floor. 2. Continue to follow hemoglobin trend. 3. I am anticipating an EGD on Tuesday after her Eliquis has been held for 72 hours. MTDD
--- NOTE | 2016-09-20 17:40 | NUR ---
COMFORT PT STATES NORCO 5 GIVEN AT 1640 TOOK [place]ED[place]E AWAY. ABLE TO SIT UP AND HAVE A C.L. EVENING MEAL, SLOWLY
[2016-09-20 20:28] LABS: HGB - HEMOGLOBIN 8.3 GM/DL (12-16)
[2016-09-20] MEDS: GABAPENTIN 100 MG CAPSULE PO SCH (20:48)
[2016-09-20] MEDS: HYOSCYAMINE 0.375 MG PO SCH (20:48)
[2016-09-20] MEDS: ATORVASTATIN 40 MG TABLET PO SCH (20:49)
[2016-09-20] MEDS ORDERED: METOPROLOL 5mg/5ml INJECTION IV ONE (22:15)
--- NOTE | 2016-09-20 22:27 | NUR ---
Mick text to Dr. Stoll regarding change in telemetry: from Sinus rythum to Atrial Fibrillation. V/S: 98.2; 115; 20; 101/61; SPO2 92% RA. Pt. did c/o of H/A and nausea earlier this evening. blood or blood bank technician reports pt. converted to A-Fib at 2004. Order recieved for Metoprolol 5 mg. IV one time.
--- NOTE | 2016-09-20 22:40 | NUR ---
Metoprolol 5 mg. IV was given at 2217.
--- NOTE | 2016-09-20 22:45 | NUR ---
Pt. has converted back to Sinus Rythum. Heart rate 72 b/min. Sleeping.
--- NOTE | 2016-09-20 23:20 | NUR ---
One NORCO 5/325 mg. given PO for back pain. Patient son in to visit.
[2016-09-21] VITALS (9 sets, daily range): BP systolic 86–138; BP diastolic 47–63; PULSE 58–72; RESP 12–20; TEMP 96–98.1; O2SAT 91–96
[2016-09-21 02:46] LABS: BASOPHILS # (AUTO) 0.1 T/MM3 (0-0.2); BASOPHILS % (AUTO) 1.4 % (0-2); EOSINOPHILS # (AUTO) 0.2 T/MM3 (0-0.5); EOSINOPHILS % (AUTO) 2.3 % (0-4); HCT - HEMATOCRIT 29.1 % (36-46); HGB - HEMOGLOBIN 9.2 GM/DL (12-16); IMMATURE GRANULOCYTE # (AUTO) 0.05 T/MM3 (0.00-0.03); IMMATURE GRANULOCYTE % (AUTO) 0.7 % (0.0-0.5); MEAN CORPUSCULAR HGB 28.4 UUG (26-34); MEAN CORPUSCULAR HGB CONC(MCHC 31.6 GM/DL (31-37); MEAN CORPUSCULAR VOLUME 89.8 UM3 (80-100); MEAN PLATELET VOLUME 10.9 UM3 (9.4-12.4); MONOCYTES # (AUTO) 0.7 T/MM3 (0-0.8); MONOCYTES % (AUTO) 10.2 % (0-9.0); NEUTROPHILS #(AUTO)-ABSOLUTE 4.3 T/MM3 (1.8-7.7); NEUTROPHILS % (AUTO) 58.4 % (33-66); RED BLOOD COUNT 3.24 M/MM3 (4.00-5.20); WBC - WHITE BLOOD COUNT 7.3 T/MM3 (4.5-11.0)
[2016-09-21 02:57] LABS: ANION GAP 7 MEQ/L (5-15); BUN/CREATININE RATIO 15 RATIO (6-26); CALCIUM 8.9 MG/DL (8.4-10.2); CHLORIDE 112 MEQ/L (98-107); CO2 - CARBON DIOXIDE 27 MEQ/L (22-30); CREATININE 0.8 MG/DL (0.7-1.2); GLOMERULAR FILTRATION RATE 73; GLUCOSE 122 MG/DL (65-110); POTASSIUM 4.5 MEQ/L (3.6-5); SODIUM 146 MEQ/L (134-144)
[2016-09-21] MEDS: ISOSORBIDE MONONITRATE ER 30 MG TABLET PO SCH (05:50)
[2016-09-21] MEDS: LEVOTHYROXINE 100 MCG TABLET PO SCH (05:51)
[2016-09-21] MEDS: SOTALOL 80 MG TABLET PO SCH ×2 (05:58→17:16)
--- NOTE | 2016-09-21 06:50 | NUR ---
END OF SHIFT SUMMARY: Remains in Sinus Rythum. Heartrate 60s-70s. Slept soundly most of the night. Ambulated in hallway with stand by assistance when she woke up at 4/AM. Denies Nausea. Denies pain this AM. Eats jello and drinks water. Takes scheduled Imdur; Betapace and Synthroid this AM. HBG. 9.2. NA+ 146.
[2016-09-21 08:39] LABS: HGB - HEMOGLOBIN 8.3 GM/DL (12-16)
[2016-09-21] MEDS: NICOTINE PATCH REMOVAL TD SCH (09:00)
[2016-09-21] MEDS: FOLIC ACID 1 MG TABLET PO SCH (09:18)
[2016-09-21] MEDS: HYOSCYAMINE 0.375 MG PO SCH ×2 (09:18→20:46)
[2016-09-21] MEDS: FUROSEMIDE 20 MG TABLET PO SCH (09:19)
[2016-09-21] MEDS: FERROUS SULFATE 324 MG TABLET PO SCH (09:19)
[2016-09-21] MEDS: CYANOCOBALAMIN (B-12) 1000mcg/ml INJECTION SQ SCH (09:21)
[2016-09-21] MEDS: NICOTINE 14 MG PATCH TD SCH (09:21)
[2016-09-21] MEDS: POTASSIUM CHLORIDE 20 MEQ TABLET PO SCH (09:27)
[2016-09-21] MEDS: HYDROCODONE/APAP 5 mg/325 mg TABLET PO PRN ×2 (09:28→20:47)
[2016-09-21] MEDS: PANTOPRAZOLE 40mg INJECTION IV SCH ×2 (09:29→20:48)
[2016-09-21] MEDS: ESCITALOPRAM 20 MG TABLET PO SCH (09:30)
--- NOTE | 2016-09-21 09:30 | NUR ---
PRN Pt given [place] / @ 0928 for 12/27 back pain.
--- NOTE | 2016-09-21 10:30 | NUR ---
PRN Follow up Pt states that her pain is down to a 4/10
--- NOTE | 2016-09-21 10:42 | PNPDOC ---
KILO GANT BODY RECALL INSTRUCTOR 09/21/16 1041: Subjective Date DATE: 09/21/16 TIME: 10:38 Subjective Angélica is sitting up on the bedside in her room on the medical unit. She denies cardiac complaints. She states emotional stress as her daughter in [place] is having surgery today and the patient was supposed to there to help her. Objective Vital Signs Vital signs Vital Signs 09/21/16 09/21/16 09/21/16 09/21/16 00:00 00:05 04:00 04:15 Temp 96.6 96.6 96.0 Pulse 72 65 61 61 Resp 20 14 20 14 B/P 97/55 96/59 96/59 Pulse Ox 95 92 92 O2 Delivery Room Air Room Air Room Air 09/21/16 09/21/16 09/21/16 05:58 07:51 08:17 Temp 97.2 Pulse 66 59 62 Resp 14 16 B/P 86/47 Pulse Ox 94 O2 Delivery Room Air Telemetry Rhythm: Sinus Rhythm Height (Feet): 5 Height (Inches): 3.00 Weight (Kilograms): 73.300 General Alert, Orientated x 3, Cooperative, No Acute Distress ENMT (Brief) mucosa moist Neck (Brief) NOT FOUND: JVD, carotid bruits Respiratory (Brief) clear all snow, equal bilaterally, NOT FOUND: rales, wheezes Cardiovascular (Brief) murmur (2/6), regular rate, regular rhythm, NOT FOUND: pedal edema Abdomen (Brief) BS normo active x4, soft, NOT FOUND: tender Integumentary (Brief) dry, pink, warm Psychiatric (Brief) alert, attentive, oriented Laboratory Laboratory Laboratory Tests Test 09/19/16 15:05 09/19/16 20:18 09/19/16 22:28 09/20/16 02:48 Hemoglobin 8.2GM/DL 8.3GM/DL 8.3GM/DL Urine Collection Type Cleancatch-midstream Urine Color Yellow Urine Turbidity Clear Urine pH 6.5 Urine Specific [place] 1.010 Urine Protein Negative Urine Glucose (UA) Negative Urine Ketones Negative Urine Blood 1+ Urine Nitrite Negative Urine Bilirubin Negative Urine Urobilinogen 1.0EU/DL Urine Leukocyte Esterase 1+ Urine RBC 0-1/HPF Urine WBC 1-3/HPF Urine Squamous Epithelial Cells 0-5 Urine Bacteria Trace Urine Culture Indicated Cult not indicated White Blood Count 7.0T/MM3 Red Blood Count 2.94M/MM3 Hematocrit 26.3% Mean Corpuscular Volume 89.5UM3 Mean Corpuscular Hemoglobin 28.2UUG Mean Corpuscular Hemoglobin Concent 31.6GM/DL RDW Standard Deviation 52.8FL Platelet Count 236T/MM3 Mean Platelet Volume 10.8UM3 Neutrophils % (Manual) 70.0% Band Neutrophils % 1.0% Lymphocytes % (Manual) 27.0% Monocytes % (Manual) 2.0% Absolute Neutrophils (Manual) 4.9T/MM3 Band Neutrophils # 0.1T/MM3 Lymphocytes # (Manual) 1.9T/MM3 Monocytes # (Manual) 0.1T/MM3 Red Cell Morphology Comment Normal Turbidity < 20 Sodium Level 145MEQ/L Potassium Level 4.0MEQ/L Chloride Level 115MEQ/L Carbon Dioxide Level 24MEQ/L Anion Gap 6MEQ/L Blood Urea Nitrogen 16.0MG/DL Creatinine 0.7MG/DL Glomerular Filtration Rate Calc 85 BUN/Creatinine Ratio 23RATIO Glucose Level 105MG/DL Calculated Osmolality 280MOSM/KG Calcium Level 8.2MG/DL Icterus Index < 2 Chemistry Specimen Hemolysis < 15 Test 09/20/16 08:23 09/20/16 09:47 09/20/16 14:15 09/20/16 20:19 Hemoglobin 8.8GM/DL 8.9GM/DL 8.3GM/DL Stool Occult Blood Positive Test 09/21/16 02:31 09/21/16 08:25 White Blood Count 7.3T/MM3 Red Blood Count 3.24M/MM3 Hemoglobin 9.2GM/DL 8.3GM/DL Hematocrit 29.1% Mean Corpuscular Volume 89.8UM3 Mean Corpuscular Hemoglobin 28.4UUG Mean Corpuscular Hemoglobin Concent 31.6GM/DL RDW Standard Deviation 54.1FL Platelet Count 287T/MM3 Mean Platelet Volume 10.9UM3 Immature Granulocyte % (Auto) 0.7% Neutrophils (%) (Auto) 58.4% Lymphocytes (%) (Auto) 27.0% Monocytes (%) (Auto) 10.2% Eosinophils (%) (Auto) 2.3% Basophils (%) (Auto) 1.4% Absolute Immature Granulocyte (auto 0.05T/MM3 Absolute Neutrophils (auto) 4.3T/MM3 Absolute Lymphocytes (auto) 2.0T/MM3 Absolute Monocytes (auto) 0.7T/MM3 Absolute Eosinophils (auto) 0.2T/MM3 Absolute Basophils (auto) 0.1T/MM3 Turbidity < 20 Sodium Level 146MEQ/L Potassium Level 4.5MEQ/L Chloride Level 112MEQ/L Carbon Dioxide Level 27MEQ/L Anion Gap 7MEQ/L Blood Urea Nitrogen 12.0MG/DL Creatinine 0.8MG/DL Glomerular Filtration Rate Calc 73 BUN/Creatinine Ratio 15RATIO Glucose Level 122MG/DL Calculated Osmolality 282MOSM/KG Calcium Level 8.9MG/DL Icterus Index < 2 Chemistry Specimen Hemolysis < 15 Laboratory Tests 09/21/16 02:31 Laboratory Tests 09/20/16 14:15 09/20/16 20:19 09/21/16 02:31 09/21/16 08:25 Medications Current Medications Sodium Chloride (NS) 500 ml @ 0 mls/hr Q0M IV ; Start 09/18/16 at 23:29; Stop 09/20/16 at 11:56; Status DC Atorvastatin Calcium (LIPITOR 40 mg) 40 mg HS PO Last administered on 09/20/16 20:49; Start 09/19/16 at 22:00 Escitalopram Oxalate (LEXAPRO 20mg) 20 mg DAILY PO Last administered on 09:30; Start 09/19/16 at 09:00 Sotalol HCl (Betapace) 40 mg ACBID PO Last administered on 09/21/16 05:58; Start 09/19/16 at 06:30 Acetaminophen/ Hydrocodone Bitart ([place] 5/325) 1 tab Q4H PRN PO PAIN Last administered on 09/21/16 09:28; Start 09/19/16 at 04:00 Levothyroxine Sodium (Synthroid) 100 mcg ACB PO Last administered on 09/21/16 05:51; Start 09/19/16 at 07:30 Morphine Sulfate (Morphine) 2 mg Q4H PRN IV ; Start 09/19/16 at 01:15; Stop 09/20 at 11:56; Status DC Nicotine (Nicoderm) 14 mg DAILY TD Last administered on 09/21/16 09:21; Start 09/19/16 at 09:00 Ondansetron HCl (Zofran) 4 mg Q4H PRN IV NAUSEA &/OR VOMITING Last administered on 09/20/16 20:47; Start 09/19/16 at 01:15 Furosemide (Lasix) 20 mg O ONCE IV Last administered on 09/19/16 06:11; Start 09/19/16 at 06:15; Stop 09/19/16 at 06:59; Status DC Albuterol/ Ipratropium (Duoneb) 3 ml Q4H PRN AEROSOL Last administered on 06:24; Start 09/19/16 at 06:15 Nicotine 1 removal 1 removal DAILY TD Last administered on 09/21/16 09:00; Start 09/19/16 at 09:00 Potassium Chloride/Dextrose/ Sod Cl (D5-1/2 NS KCl 20 Meq) 1,000 ml @ 75 mls/ hr [id number] IV Last administered on 09/20/16 04:10; Start 09/19/16 at 14:30; Stop 09/20/16 at 11:56; Status DC Nicotine (Nicoderm Patch Removal) 1 removal DAILY TD ; Start 09/20/16 at 09:00; Status Cancel Pantoprazole Sodium (Protonix Iv) 40 mg BID IV Last administered on 09/21/16 09 :29; Start 09/20/16 at 09:00 Cyanocobalamin (Vit. B-12) 1,000 mcg DAILY SQ Last administered on 09/21/16 09: 21; Start 09/20/16 at 09:00 Folic Acid (Folate) 1 mg DAILY PO Last administered on 09/21/16 09:18; Start at 09:00 Ferrous Sulfate (Feosol) 324 mg WB PO Last administered on 09/21/16 09:19; Start 09/21/16 at 08:00 Gabapentin (Neurontin) 100 mg HS PO Last administered on 09/20/16 20:48; Start 09/20/16 at 22:00 Isosorbide Mononitrate (Imdur) 30 mg ACB PO Last administered on 09/21/16 05:50 ; Start 09/20/16 at 09:15 Hyoscyamine (Levbid) 0.375 mg BID PO Last administered on 09/21/16 09:18; Start 09/20/16 at 21:00 Potassium Chloride (Kdur) 20 meq WB PO Last administered on 09/21/16 09:27; Start 09/20/16 at 12:00 Lorazepam (Ativan) 0.5 mg Q8H PRN PO Last administered on 09/20/16 14:08; Start 09/20/16 at 14:15 Metoprolol Tartrate (Lopressor) 5 mg O ONCE IV Last administered on 09/20/16 22:17; Start 09/20/16 at 22:15; Stop 09/21/16 at 06:13; Status DC Assessment & Plan Problems: (1) GI bleed Status: Acute Qualifiers: GI bleed type/associated pathology: unspecified gastrointestinal hemorrhage type Qualified Codes: K92.2 - Gastrointestinal hemorrhage, unspecified Assessment & Plan: Stop Eliquis. Hgb 8.3 today, up from 4.8 on admission. Received 2 units PRBCs (2) Paroxysmal atrial fibrillation Status: Chronic Assessment & Plan: Continue Sotalol 40mg po BID. Eliquis stopped, not a good candidate for anticoagulation. Has a history of recurrent GI bleeding. (3) Atherosclerotic heart disease of [place] coronary artery without angina pectoris Status: Chronic Assessment & Plan: Continue Atorvastatin, BB (4) Essential (primary) hypertension Status: Chronic Assessment & Plan: Continue BB, Lasix with potassium supplement (5) Mixed hyperlipidemia Status: Chronic Assessment & Plan: Takes Atorvastatin (6) Cigarette nicotine dependence, uncomplicated Status: Chronic (7) Carotid aneurysm, right Status: Chronic Plan/Intensity of Service 09/20/16 AFib:Continue Sotalol 40mg po BID. Eliquis stopped, not a good candidate for anticoagulation. Has a history of recurrent GI bleeding. 09/21/16 DC Imdur and Lasix as BP is borderline low. Thank you for allowing us to participate in the care of this patient. We will follow along with you. GIOVANI GORE MD 09/24/16 1526: Assessment & Plan Plan/Intensity of Service After examining the patient I agree with the above assessment. I am involved in the formulation of the patient's plan of care. KILO GANT BODY RECALL INSTRUCTOR Sep 21, 2016 10:41 GIOVANI GORE MD Sep 24, 2016 15:26
--- NOTE | 2016-09-21 18:21 | NUR ---
Summary Pt was very cooperative throughout the day with assessments and cares. Pt has 2 IV sites both being on her left side and both flush well. She had complaints of a headache earlier in the shift and received [place] at 0928 for 7/10 pain and upon reassessment she rated her pain at a four. Pt was able to make her needs known and consumed a large percentage of her meals. Pt is ad-jonn in her room and has had no requests throughout the day. pt is currently in her room watching television.
--- NOTE | 2016-09-21 18:42 | PNPDOC ---
Subjective Date DATE: 09/21/16 TIME: 18:28 Subjective Mrs. Jay was seen with her son. She reported having a formed black stool yesterday but did not feel this was out of the ordinary. She denies any bright red blood per rectum. She's been mildly nauseated today but has had no emesis and complains of increased belching compared to baseline. She denied dyspnea, fever, lightheadedness, or dysuria. She notes that her urine has been darker in color than is generally true. She has had occasional headaches that have not required interventions. Objective Vital Signs Vital signs Vital Signs Date Time Temp Pulse Resp B/P Pulse Ox O2 Delivery O2 Flow Rate FiO2 09/21/16 17:16 66 09/21/16 16:45 98.1 16 120/56 96 Room Air 09/19/16 22:02 2.00 I/O 2054/0, weight stable EXAM General-NAD, alert, cooperative HEENT-conjunctiva clear, sclerae anicteric, conjugate gaze Lungs-respirations nonlabored, good airflow, breath sounds clear Cardiac-regular rhythm, S1-S2 Abd-soft, nontender, moderately distended, decreased bowel sounds Ext-without edema Neuro-moving all extremities spontaneously Psych-oriented 3 Telemetry Rhythm: Sinus Rhythm Height (Feet): 5 Height (Inches): 3.00 Weight (Kilograms): 73.300 Laboratory Laboratory Laboratory Tests 09/20/16 02:48 09/21/16 02:31 Laboratory Tests 09/19/16 20:18 09/20/16 02:48 09/20/16 08:23 09/20/16 14:15 09/20/16 20:19 09/21/16 02:31 09/21/16 08:25 09/21/16 14:23 EKG Telemetry strips reviewed-sinus rhythm Assessment & Plan Assessment Impression and plan Acute blood loss anemia on chronic anemia-hemoglobin 4.8 on admission and transfused 2 units of blood and hemoglobin has been in the 8 range since, remains stable-decrease frequency of blood work to every 8 hours and reassess tomorrow. Borderline B-12 deficiency-being supplemented subcutaneous Probably chronic GI bleed-continue proton pump inhibitor, Dr. Man plans EGD in a.m. Continue off Aspirin and eliquis. Hypotension secondary to blood loss improved after 2 units of blood but remains borderline, cardiology stopped Imdur and Lasix earlier today in response. Hypernatremia-present from admission, continue to monitor after discontinuation of diuretics. Good fluid intake. Hypoxia-possibly from pulmonary edema with IV fluid rehydration and blood transfusion-resolved Possible COPD-breathing treatments and monitor with continuous oximetry Tobaccoism-recommend cessation Carotid stent 1-1/2 years ago-Plavix was discontinued remotely Chronic anticoagulation for paroxysmal atrial fibrillation Atrial fibrillation paroxysmal-currently in sinus rhythm, continue sotalol Hypothyroidism-TSH is in normal range, continue levothyroxine Chronic pain-continue Eitzen and gabapentin Abdominal aortic aneurysm 4.[address] Hartmann is the patient's vascular surgeon Exertional pain in legs sounds like claudication-likely secondary to anemia and has resolved post blood transfusion. EGD in a.m. Plan/Intensity of Service Discussed with nursing, laboratory data reviewed. Additional studies ordered. Code Status Full Code Hospital Course Summary Disclaimer The hospital course summary below is not to be considered part of the above Progress Note. Hospital Course Summary 09/19/2016-Dr. Navarro Acute blood loss anemia on chronic anemia-serial hemoglobin, keep 2 units ahead Probable GI bleed-continue proton pump inhibitor, consult surgery for EGD consideration, placed 2 IVs, nothing by mouth, discontinue aspirin and eliquis Hypotension secondary to blood loss anemia-resolved Hypoxia-possibly from pulmonary edema with IV fluid rehydration and blood transfusion-resolved Possible COPD-breathing treatments and monitor with continuous oximetry Tobaccoism-recommend cessation Carotid stent 1-1/2 years ago-Plavix was discontinued remotely Chronic anticoagulation for paroxysmal atrial fibrillation Atrial fibrillation paroxysmal-currently in sinus rhythm, continue sotalol Hypothyroidism-check TSH and continue Synthroid Chronic pain-continue Eitzen and gabapentin Abdominal aortic aneurysm 4.[address] Hartmann is the patient's vascular surgeon Exertional pain in legs-could be secondary to anemia but will check calcium, magnesium, phosphorus and CPK 09/20/16-Ramon Gurrola consulted regarding arrhythmia and history of paroxysmal atrial fibrillation. Hemoglobin has remained stable following initial transfusion of 2 units of packed red blood cells. Vitamin B-12 initiated subcutaneous in conjunction with oral folic acid and iron. Remains off aspirin and Eliquis. Hypoxia has resolved. Stable to transfer out of ICU. 09/21/16-[place] Clinically stable, hemoglobin remains approximately 8 after initial transfusion. Tolerating clear liquids. EGD planned for tomorrow morning. Blood pressure borderline low-immature and Lasix discontinued. JONNY JOSÉ MD Sep 21, 2016 18:31
[2016-09-21] MEDS: ATORVASTATIN 40 MG TABLET PO SCH (20:46)
[2016-09-21] MEDS: GABAPENTIN 100 MG CAPSULE PO SCH (20:47)
--- NOTE | 2016-09-21 20:50 | NUR ---
PRN PT WAS GIVEN PAIN MEDICATION FOR 6/10 BLE AND BACK PAIN. SON AT BED SIDE. PT REPOSITIONS SELF.
[2016-09-21] MEDS: LORAZEPAM 0.5 MG TABLET PO PRN (21:54)
--- NOTE | 2016-09-21 22:00 | NUR ---
PRN PT WAS GIVEN PRN ATIVAN FOR ANXIETY PER HER REQUEST. REPORTED PAIN IS 4/10 ON HER BLE. WILL CONTINUE TO MONITOR.
[2016-09-21 22:22] LABS: HCT - HEMATOCRIT 25.1 % (36-46); HGB - HEMOGLOBIN 7.9 GM/DL (12-16)
--- NOTE | 2016-09-21 23:43 | NUR ---
STATUS. DR VISITED THE PT AND DISCUSSED ABOUT THE EGD TOMORROW. PT TO BE NPO AFTER MIDNIGHT. CONSENT TO BE SIGNED IN THE MORNING.
[2016-09-22] VITALS (20 sets, daily range): BP systolic 90–142; BP diastolic 46–98; PULSE 52–65; RESP 16–20; TEMP 96.4–97.8; O2SAT 92–99
[2016-09-22] MEDS: SOTALOL 80 MG TABLET PO SCH (05:58)
[2016-09-22] MEDS: LEVOTHYROXINE 100 MCG TABLET PO SCH (05:59)
[2016-09-22 06:19] LABS: BASOPHILS # (AUTO) 0.1 T/MM3 (0-0.2); BASOPHILS % (AUTO) 1.5 % (0-2); EOSINOPHILS # (AUTO) 0.2 T/MM3 (0-0.5); EOSINOPHILS % (AUTO) 3.3 % (0-4); HCT - HEMATOCRIT 27.8 % (36-46); HGB - HEMOGLOBIN 8.6 GM/DL (12-16); IMMATURE GRANULOCYTE # (AUTO) 0.04 T/MM3 (0.00-0.03); IMMATURE GRANULOCYTE % (AUTO) 0.9 % (0.0-0.5); LYMPHOCYTES # (AUTO) 1.5 T/MM3 (1-4.8); LYMPHOCYTES % (AUTO) 32.2 % (23-45); MEAN CORPUSCULAR HGB 27.8 UUG (26-34); MEAN CORPUSCULAR HGB CONC(MCHC 30.9 GM/DL (31-37); MEAN PLATELET VOLUME 10.8 UM3 (9.4-12.4); MONOCYTES # (AUTO) 0.5 T/MM3 (0-0.8); MONOCYTES % (AUTO) 11.7 % (0-9.0); NEUTROPHILS #(AUTO)-ABSOLUTE 2.3 T/MM3 (1.8-7.7); NEUTROPHILS % (AUTO) 50.4 % (33-66); RED BLOOD COUNT 3.09 M/MM3 (4.00-5.20); WBC - WHITE BLOOD COUNT 4.6 T/MM3 (4.5-11.0)
[2016-09-22 06:24] LABS: ANION GAP 8 MEQ/L (5-15); BUN/CREATININE RATIO 14 RATIO (6-26); CALCIUM 8.6 MG/DL (8.4-10.2); CHLORIDE 110 MEQ/L (98-107); CO2 - CARBON DIOXIDE 29 MEQ/L (22-30); CREATININE 0.8 MG/DL (0.7-1.2); GLOMERULAR FILTRATION RATE 73; GLUCOSE 79 MG/DL (65-110); POTASSIUM 4.3 MEQ/L (3.6-5); SODIUM 147 MEQ/L (134-144)
--- NOTE | 2016-09-22 06:41 | NUR ---
SUMMARY PT SLEPT WELL THIS SHIFT AFTER SHE WAS GIVEN ORAL ATIVAN. ALERT AND ORIENTED. ABLE TO VOICE NEEDS TO THE STAFFS. NPO SINCE MIDNIGHT FOR EGD THIS MORNING. PT AWARE OF THE PROCEDURE. AMBULATES WITHOUT ASSIST IN THE ROOM. GAIT STEADY. PT WAS EDUCATED ON THE CALL LIGHT USE AND SAFETY. VITAL SIGNS STABLE.
[2016-09-22] MEDS ORDERED: LIDOCAINE VISCOUS 2% Oral Soln 15ml UD ONE (06:59)
[2016-09-22] MEDS: CYANOCOBALAMIN (B-12) 1000mcg/ml INJECTION SQ SCH (08:45)
[2016-09-22] MEDS: NICOTINE 14 MG PATCH TD SCH (08:46)
[2016-09-22] MEDS: PANTOPRAZOLE 40mg INJECTION IV SCH (08:51)
[2016-09-22] MEDS: NICOTINE PATCH REMOVAL TD SCH (08:52)
--- NOTE | 2016-09-22 09:12 | NUR ---
EGD PT SENT WITH OR STAFF AT THIS TIME.
--- NOTE | 2016-09-22 09:36 | PNF ---
DATE OF VISIT 09/21/2016 REASON FOR VISIT Follow GI bleed. SUBJECTIVE Angélica is doing well this evening. She still denies any abdominal pain. She has not required any more blood transfusion since 09/19/2016. OBJECTIVE VITAL SIGNS: Temperature 98.0. Pulse 61. Blood pressure 138/63. Respiratory 18. Oxygen saturation 96% on room air. GENERAL: The patient is awake and alert, in no acute distress. ABDOMEN: Soft, nontender, nondistended. LABORATORY DATA Hemoglobin trend today was 9.2, 8.3, 8.0, 7.9. ASSESSMENT 1. Melanotic stools. 2. Anemia secondary to chronic GI blood loss - stable following transfusion on 09/19/2016. 3. Daily use of Eliquis and aspirin - now on hold for greater than 72 hours. PLAN 1. Now that Eliquis has been held for 72 hours, I do think it is possible to perform an EGD. 2. I am not performing a colonoscopy since the patient has had two failed prior colonoscopies and even her memorial marker designer was not considering colonoscopy on an outpatient basis. 3. Follow hemoglobin trend. PATIENT EDUCATION The details, risks and benefits of EGD were discussed with the patient. The discussion included but was not limited to bleeding, perforation, missed lesions, aspiration, possible cardiac complications, and complications of anesthesia. She had her questions answered and did wish to proceed with EGD tomorrow. MTDD
[2016-09-22] MEDS ORDERED: LR 1,000 ML IV ONE (09:37)
--- NOTE | 2016-09-22 09:44 | ANESPREOP ---
Anesthesia Record Date and Time DATE: 09/22/16 TIME: 09:37 Pre-Op Diagnosis Anemia, GI Bleed Proposed Surgical Procedure EGD NPO since: mn Allergies: Coded Allergies: Sulfa (Sulfonamide Antibiotics) (Verified Allergy, Unknown, UNKNOWN, ) THROAT SWELLING Uncoded Allergies: ZOMAX (Allergy, Unknown, HIVES, 02/27/15) Ht/Wt/BMI Height: 5 ' 3.00 " Weight: 72.600 kg BMI: 28.7 kg/m2 Vital Signs Date Time Temp Pulse Resp B/P Pulse Ox O2 Delivery O2 Flow Rate FiO2 09/22/16 07:56 97.5 60 16 137/67 96 Room Air 09/19/16 22:02 2.00 Medications Inpatient Medications Current Medications Medications (Trade) Dose Ordered Sig/Carmen Start Time Stop Time Status Last Admin Dose Admin Sodium Chloride 1,000 ml @ 75 mls/hr [id number] 09/18/16 23:25 09/19/16 14:32 DC 09/19/16 13:22 100 MLS/HR Sodium Chloride (NS) 500 ml @ 0 mls/hr Q0M 09/18/16 23:29 09/20/16 11:56 DC Atorvastatin Calcium (LIPITOR 40 mg) 40 mg HS 09/19/16 22:00 09/21/16 20:46 40 MG Escitalopram Oxalate (LEXAPRO 20mg) 20 mg DAILY 09/19/16 09:00 09/21/16 09:30 20 MG Furosemide (Lasix) 20 mg QD 09/19/16 00:00 09/19/16 01:10 DC Gabapentin (Neurontin) 100 mg DAILY 09/19/16 09:00 09/20/16 09:09 DC 09/19/16 16:02 100 MG Acetaminophen/ Hydrocodone Bitart ([place] 5/325) 1 tab Q4H 09/19/16 00:00 09/19/16 01:10 DC Levothyroxine Sodium (Synthroid) 100 mcg QD 09/19/16 00:00 09/19/16 01:10 DC Sotalol HCl (Betapace) 40 mg ACBID 09/19/16 06:30 09/22/16 05:58 40 MG Furosemide (Lasix) 20 mg QD 09/19/16 08:00 09/21/16 14:11 DC 09/21/16 09:19 20 MG Acetaminophen/ Hydrocodone Bitart ([place] 5/325) 1 tab Q4H PRN 09/19/16 04:00 09/21/16 20:47 1 TAB Levothyroxine Sodium (Synthroid) 100 mcg ACB 09/19/16 07:30 09/22/16 05:59 100 MCG Pantoprazole Sodium (Protonix Iv) 40 mg DAILY 09/19/16 09:00 09/20/16 09:09 DC 09/19/16 03:49 40 MG Morphine Sulfate (Morphine) 2 mg Q4H PRN 09/19/16 01:15 09/20/16 11:56 DC Nicotine (Nicoderm) 14 mg DAILY 09/19/16 09:00 09/22/16 08:46 14 MG Ondansetron HCl (Zofran) 4 mg Q4H PRN 09/19/16 01:15 09/20/16 20:47 4 MG Albuterol/ Ipratropium (Duoneb) 3 ml Q4H PRN 09/19/16 06:15 09/19/16 06:24 3 ML Nicotine 1 removal 1 removal DAILY 09/19/16 09:00 09/22/16 08:52 1 REMOVAL Potassium Chloride/Dextrose/ Sod Cl (D5-1/2 NS KCl 20 Meq) 1,000 ml @ 75 mls/hr [id number] 09/19/16 14:30 09/20/16 11:56 DC 09/20/16 04:10 75 MLS/HR Nicotine (Nicoderm Patch Removal) 1 removal DAILY 09/20/16 09:00 Cancel Pantoprazole Sodium (Protonix Iv) 40 mg BID 09/20/16 09:00 09/22/16 08:51 40 MG Cyanocobalamin (Vit. B-12) 1,000 mcg DAILY 09/20/16 09:00 09/22/16 08:45 1,000 MCG Folic Acid (Folate) 1 mg DAILY 09/20/16 09:00 09/21/16 09:18 1 MG Ferrous Sulfate (Feosol) 324 mg WB 09/21/16 08:00 09/21/16 09:19 324 MG Gabapentin (Neurontin) 100 mg HS 09/20/16 22:00 09/21/16 20:47 100 MG Isosorbide Mononitrate (Imdur) 30 mg ACB 09/20/16 09:15 09/21/16 14:11 DC 09/21/16 05:50 30 MG Hyoscyamine (Levbid) 0.375 mg BID 09/20/16 21:00 09/21/16 20:46 0.375 MG Potassium Chloride (Kdur) 20 meq WB 09/20/16 12:00 09/21/16 14:12 DC 09/21/16 09:27 20 MEQ Lorazepam (Ativan) 0.5 mg Q8H PRN 09/20/16 14:15 09/21/16 21:54 0.5 MG Apixaban (Eliquis) 5 Mg Tablet, PO DAILY, (Reported) Last Taken: on 09/18/16 08 Aspirin (Aspirin) 325 Mg Tablet, 325 MG PO DAILY , (Reported) Last Taken: on 09/18/16 08 Atorvastatin Calcium (Atorvastatin Calcium) 40 Mg Tablet, 1 TAB PO HS, (Reported) Last Taken: on 09/17/162099 Escitalopram Oxalate (Escitalopram Oxalate) 20 Mg Tablet, 1 TAB PO DAILY, (Reported) Last Taken: on 09/18/162099 Furosemide (Furosemide) 20 Mg Tablet, 20 MG PO QD, (Reported) Last Taken: on 09/18/16799 Gabapentin (Gabapentin) 100 Mg Capsule, 1 CAP PO DAILY, (Reported) Last Taken: on 09/17/162099 Hydrocodone/Apap ([place] 5-325 Tablet) 5-325 Tablet, 1 TAB PO Q4-6HPRN, (Reported) Last Taken: on 09/17/161999 Hyoscyamine (Levbid) 0.375 Mg Tablet, 1 TAB PO BID, (Reported) Last Taken: on 09/18/16799 Isosorbide Mononitrate (Isosorbide Mononitrate ER) 30 Mg Tab.er.24h, 1 TAB PO DAILY, (Reported) Last Taken: on 09/18/16 08 Levothyroxine Sodium (Levothyroxine Sodium) 100 Mcg Tablet, 100 MCG PO QD, (Reported) Last Taken: on 09/18/16 0800 Ondansetron (Zofran Odt) 4 Mg Tab.rapdis, 4 MG PO Q4HR PRN for NAUSEA &/OR VOMITING Last Taken: on Unknown Date & Time Oxycodone HCl/Acetaminophen (Percocet 5- 325 mg Tablet) 5-325 Tablet, 1 TAB PO Q4HR PRN for PAIN Last Taken: on 09/17/16 2100 Potassium Chloride (Potassium Chloride) 20 Meq Tab.er.prt, 20 MEQ PO QD, (Reported) Last Taken: on 09/18/16 0800 Sotalol HCl (Betapace) 80 Mg Tablet, 40 MG PO ACBID Last Taken: on 09/18/16 0800 Currently on Beta Tito: Yes Beta Tito Last Taken: 09/22/2016 Medical/Surgical History Anesthesia PMH: Reports: *ASHD, *Angina, *Dyspnea (UPON EXERTION), * Hypertension, Arthritis, Blood Transfusion Reac, COPD, Headaches (HX OF MIGRAINES), Hiatal Hernia (30 YEARS AGO), Other (AAA), Pneumonia (TWICE YEARS AGO), Thyroid Disease (TAKES MEDS), Denies: *Diabetes, *CO, Anesthesia Reactions , Asthma, CHF, CVA/Stroke/TIA, Cancer, Deep Vein Thrombosis, Glaucoma, Hepatitis , Malignant Hyperthermia, Pacemaker, Reflux, Renal Disease, Rheumatic Fever, Seizures, Sleep Apnea, Tuberculosis Smoking Status: Current every day smoker # of Packs per Day: 1 # of Years: 50 Use Chewing Tobacco?: No Substance Use Type: does not use Alcohol Intake: none Past Surgical History Orthopedic Surgeries: No Abdominal Surgeries: Yes - Laproscopy Genitourinary Surgeries: No Cardiac Surgeries: Yes - Carotid stent Endocrine Surgeries: No Reproductive Surgeries: Yes - D&C,hyterectomy, tubal ligation Neurological Surgeries: No Ear Surgeries: No Nose Surgeries: No Throat Surgeries: No Other Surgeries: No - Breast biopsy Anesthesia Adverse Reactions: FOUND none Family Hx of Anesthesia Advers: none Hx of Motion Sickness: No Pertinent Findings Laboratory Tests 09/22/16 05:53 EKG Rhythm: Sinus Bradycardia Physical Exam Respiratory: Bilat breath sounds equal, Lungs clear Cardiovascular: FOUND Regular rate, rhythm, FOUND No murmur Airway Assessment Mallampati Score: II TMD: 3 Fingerbreadths Neck Extension: Good Teeth: Upper Dentures, Lower Dentures Overall Assessment: No Airway Concerns ASA: 3 Plan Anesthesia Plan: TIVA Discussion Discussed risks/options/alternatives of anesthesia and questions answered. Patient consents. Nursing pain assessment noted. Attestation Statement Prior to the delivery of any anesthetic medication, I examined the patient, developed the plan, obtained the patient's consent and discussed the risk and benefits of the procedure with the patient/guardian. RIVKA RUELAS CONCRETE ANALYST Sep 22, 2016 09:41
[2016-09-22] MEDS ORDERED: ALFENTANIL 500mcg/ml - 2ml INJECTION ONE (09:54)
[2016-09-22] MEDS ORDERED: SALINE FLUSH 10ml SYRINGE ONE (10:14)
--- NOTE | 2016-09-22 10:23 | GSPOSTPROC ---
Immediate Operative Note DATE: 09/22/16 TIME: 10:22 Postop Diagnosis: mild gastritis with small ulceration mild duodenitis chronic melena Surgical Procedure: EGD w/Biopsies Surgeon: Magda ASA: 3 EVELYN FITZGERALD MD Sep 22, 2016 10:23
--- NOTE | 2016-09-22 10:42 | NUR ---
CM IN TO VISIT PT IS IN RECOVERY TALKED WITH ADRIANA. CM EXPLAINED ROLE AND PROVIDED CONTACT INFORMATION. ADVISED TO CALL SHOULD NEEDS ARISE AND CM WILL VISIT AGAIN.
--- NOTE | 2016-09-22 11:05 | NUR ---
RETURN PT RETURNED FROM PROCEDURE AT THIS TIME. ON RA. DENIES ANY PAIN EXCEPT FOR HER CHRONIC PAIN.
[2016-09-22] MEDS: ESCITALOPRAM 20 MG TABLET PO SCH (11:13)
[2016-09-22] MEDS: HYOSCYAMINE 0.375 MG PO SCH (11:13)
[2016-09-22] MEDS: FOLIC ACID 1 MG TABLET PO SCH (11:13)
[2016-09-22] MEDS: FERROUS SULFATE 324 MG TABLET PO SCH (11:14)
[2016-09-22] MEDS ORDERED: SUCRALFATE 1 G TABLET PO SCH (11:30)
--- NOTE | 2016-09-22 12:38 | PNPDOC ---
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 She denies cardiac complaints, and anticipates EGD with biopsies today for GI Bleed. Objective Vital Signs Vital signs Vital Signs 09/22/16 09/22/16 09/22/16 09/22/16 04:49 05:58 07:56 10:25 Temp 96.7 97.5 97.8 Pulse 55 60 60 60 Resp 18 16 16 B/P 127/58 137/67 105/46 Pulse Ox 92 96 94 O2 Delivery Room Air Room Air O2 Flow Rate 6.00 09/22/16 09/22/16 09/22/16 09/22/16 10:30 10:32 10:35 10:40 Pulse 58 57 58 62 Resp 17 19 20 20 B/P 90/53 95/52 101/86 Pulse Ox 99 94 97 94 O2 Delivery Room Air Room Air Room Air O2 Flow Rate 6.00 09/22/16 09/22/16 09/22/16 09/22/16 10:45 10:50 10:55 10:57 Temp 97.6 Pulse 56 56 54 Resp 19 17 16 B/P 110/61 117/64 113/61 Pulse Ox 93 92 94 O2 Delivery Room Air Room Air Room Air 09/22/16 09/22/16 09/22/16 09/22/16 11:06 11:21 11:36 11:51 Temp 96.4 Pulse 56 56 52 54 Resp 18 16 16 16 B/P 122/66 121/65 131/67 142/68 Pulse Ox 98 96 98 95 O2 Delivery Room Air Room Air Room Air Room Air Telemetry Rhythm: Sinus Rhythm Height (Feet): 5 Height (Inches): 3.00 Weight (Kilograms): 72.600 General Alert, Orientated x 3, Cooperative, No Acute Distress ENMT (Brief) mucosa moist Neck (Brief) NOT FOUND: JVD, carotid bruits Respiratory (Brief) clear all snow, equal bilaterally, NOT FOUND: rales, wheezes Cardiovascular (Brief) murmur (2/6), regular rate, regular rhythm, NOT FOUND: pedal edema Abdomen (Brief) BS normo active x4, soft Integumentary (Brief) dry, pink, warm Psychiatric (Brief) alert, oriented Laboratory Laboratory Laboratory Tests Test 09/20/16 14:15 09/20/16 20:19 09/21/16 02:31 09/21/16 08:25 Hemoglobin 8.9GM/DL 8.3GM/DL 9.2GM/DL 8.3GM/DL White Blood Count 7.3T/MM3 Red Blood Count 3.24M/MM3 Hematocrit 29.1% Mean Corpuscular Volume 89.8UM3 Mean Corpuscular Hemoglobin 28.4UUG Mean Corpuscular Hemoglobin Concent 31.6GM/DL RDW Standard Deviation 54.1FL Platelet Count 287T/MM3 Mean Platelet Volume 10.9UM3 Immature Granulocyte % (Auto) 0.7% Neutrophils (%) (Auto) 58.4% Lymphocytes (%) (Auto) 27.0% Monocytes (%) (Auto) 10.2% Eosinophils (%) (Auto) 2.3% Basophils (%) (Auto) 1.4% Absolute Immature Granulocyte (auto 0.05T/MM3 Absolute Neutrophils (auto) 4.3T/MM3 Absolute Lymphocytes (auto) 2.0T/MM3 Absolute Monocytes (auto) 0.7T/MM3 Absolute Eosinophils (auto) 0.2T/MM3 Absolute Basophils (auto) 0.1T/MM3 Turbidity < 20 Sodium Level 146MEQ/L Potassium Level 4.5MEQ/L Chloride Level 112MEQ/L Carbon Dioxide Level 27MEQ/L Anion Gap 7MEQ/L Blood Urea Nitrogen 12.0MG/DL Creatinine 0.8MG/DL Glomerular Filtration Rate Calc 73 BUN/Creatinine Ratio 15RATIO Glucose Level 122MG/DL Calculated Osmolality 282MOSM/KG Calcium Level 8.9MG/DL Icterus Index < 2 Chemistry Specimen Hemolysis < 15 Test 09/21/16 14:23 09/21/16 22:04 09/22/16 05:53 Hemoglobin 8.0GM/DL 7.9GM/DL 8.6GM/DL Hematocrit 25.1% 27.8% White Blood Count 4.6T/MM3 Red Blood Count 3.09M/MM3 Mean Corpuscular Volume 90.0UM3 Mean Corpuscular Hemoglobin 27.8UUG Mean Corpuscular Hemoglobin Concent 30.9GM/DL RDW Standard Deviation 52.2FL Platelet Count 284T/MM3 Mean Platelet Volume 10.8UM3 Immature Granulocyte % (Auto) 0.9% Neutrophils (%) (Auto) 50.4% Lymphocytes (%) (Auto) 32.2% Monocytes (%) (Auto) 11.7% Eosinophils (%) (Auto) 3.3% Basophils (%) (Auto) 1.5% Absolute Immature Granulocyte (auto 0.04T/MM3 Absolute Neutrophils (auto) 2.3T/MM3 Absolute Lymphocytes (auto) 1.5T/MM3 Absolute Monocytes (auto) 0.5T/MM3 Absolute Eosinophils (auto) 0.2T/MM3 Absolute Basophils (auto) 0.1T/MM3 Turbidity < 20 Sodium Level 147MEQ/L Potassium Level 4.3MEQ/L Chloride Level 110MEQ/L Carbon Dioxide Level 29MEQ/L Anion Gap 8MEQ/L Blood Urea Nitrogen 11.0MG/DL Creatinine 0.8MG/DL Glomerular Filtration Rate Calc 73 BUN/Creatinine Ratio 14RATIO Glucose Level 79MG/DL Calculated Osmolality 280MOSM/KG Calcium Level 8.6MG/DL Icterus Index < 2 Chemistry Specimen Hemolysis < 15 Laboratory Tests 09/22/16 05:53 Laboratory Tests 09/21/16 14:23 09/21/16 22:04 09/22/16 05:53 Medications Current Medications Sodium Chloride (NS) 500 ml @ 0 mls/hr Q0M IV ; Start 09/18/16 at 23:29; Stop 09/20/16 at 11:56; Status DC Atorvastatin Calcium (LIPITOR 40 mg) 40 mg HS PO Last administered on 09/21/16 20:46; Start 09/19/16 at 22:00 Escitalopram Oxalate (LEXAPRO 20mg) 20 mg DAILY PO Last administered on 11:13; Start 09/19/16 at 09:00 Sotalol HCl (Betapace) 40 mg ACBID PO Last administered on 09/22/16 05:58; Start 09/19/16 at 06:30 Acetaminophen/ Hydrocodone Bitart ([place] 5/325) 1 tab Q4H PRN PO PAIN Last administered on 09/21/16 20:47; Start 09/19/16 at 04:00 Levothyroxine Sodium (Synthroid) 100 mcg ACB PO Last administered on 09/22/16 05:59; Start 09/19/16 at 07:30 Morphine Sulfate (Morphine) 2 mg Q4H PRN IV ; Start 09/19/16 at 01:15; Stop 09/20 at 11:56; Status DC Nicotine (Nicoderm) 14 mg DAILY TD Last administered on 09/22/16 08:46; Start 09/19/16 at 09:00 Ondansetron HCl (Zofran) 4 mg Q4H PRN IV NAUSEA &/OR VOMITING Last administered on 09/20/16 20:47; Start 09/19/16 at 01:15 Furosemide (Lasix) 20 mg O ONCE IV Last administered on 09/19/16 06:11; Start 09/19/16 at 06:15; Stop 09/19/16 at 06:59; Status DC Albuterol/ Ipratropium (Duoneb) 3 ml Q4H PRN AEROSOL Last administered on 06:24; Start 09/19/16 at 06:15 Nicotine 1 removal 1 removal DAILY TD Last administered on 09/22/16 08:52; Start 09/19/16 at 09:00 Potassium Chloride/Dextrose/ Sod Cl (D5-1/2 NS KCl 20 Meq) 1,000 ml @ 75 mls/ hr [id number] IV Last administered on 09/20/16 04:10; Start 09/19/16 at 14:30; Stop 09/20/16 at 11:56; Status DC Nicotine (Nicoderm Patch Removal) 1 removal DAILY TD ; Start 09/20/16 at 09:00; Status Cancel Pantoprazole Sodium (Protonix Iv) 40 mg BID IV Last administered on 09/22/16 08 :51; Start 09/20/16 at 09:00 Cyanocobalamin (Vit. B-12) 1,000 mcg DAILY SQ Last administered on 09/22/16 08: 45; Start 09/20/16 at 09:00 Folic Acid (Folate) 1 mg DAILY PO Last administered on 09/22/16 11:13; Start at 09:00 Ferrous Sulfate (Feosol) 324 mg WB PO Last administered on 09/22/16 11:14; Start 09/21/16 at 08:00 Gabapentin (Neurontin) 100 mg HS PO Last administered on 09/21/16 20:47; Start 09/20/16 at 22:00 Isosorbide Mononitrate (Imdur) 30 mg ACB PO Last administered on 09/21/16 05:50 ; Start 09/20/16 at 09:15; Stop 09/21/16 at 14:11; Status DC Hyoscyamine (Levbid) 0.375 mg BID PO Last administered on 09/22/16 11:13; Start 09/20/16 at 21:00 Potassium Chloride (Kdur) 20 meq WB PO Last administered on 09/21/16 09:27; Start 09/20/16 at 12:00; Stop 09/21/16 at 14:12; Status DC Lorazepam (Ativan) 0.5 mg Q8H PRN PO Last administered on 09/21/16 21:54; Start 09/20/16 at 14:15 Metoprolol Tartrate (Lopressor) 5 mg O ONCE IV Last administered on 09/20/16 22:17; Start 09/20/16 at 22:15; Stop 09/21/16 at 06:13; Status DC Lidocaine HCl 15 ml 15 ml STK-MED ONCE .ROUTE ; Start 09/22/16 at 06:59; Stop 09/22/16 at 07:01; Status DC Lactated Ringer's (Lactated Ringers) 1,000 ml @ 50 mls/hr Q20H ONCE IV Last administered on 09/22/16 09:48; Start 09/22/16 at 09:37; Stop 09/23/16 at 05:36 Alfentanil HCl (Alfenta) 500 mcg STK-MED ONCE .ROUTE ; Start 09/22/16 at 09:54; Stop 09/22/16 at 09:55; Status DC Sodium Chloride (Iv Flush) 10 ml STK-MED ONCE .ROUTE ; Start 09/22/16 at 10:14; Stop 09/22/16 at 10:15; Status DC Sucralfate (Carafate) 1 g ACHS PO Last administered on 09/22/16 11:16; Start at 11:30 Assessment & Plan Problems: (1) GI bleed Status: Acute Qualifiers: GI bleed type/associated pathology: unspecified gastrointestinal hemorrhage type Qualified Codes: K92.2 - Gastrointestinal hemorrhage, unspecified Assessment & Plan: Stop Eliquis. Hgb 8.3 today, up from 4.8 on admission. Received 2 units PRBCs (2) Paroxysmal atrial fibrillation Status: Chronic Assessment & Plan: Continue Sotalol 40mg po BID. Eliquis stopped, not a good candidate for anticoagulation. Has a history of recurrent GI bleeding. (3) Atherosclerotic heart disease of [place] coronary artery without angina pectoris Status: Chronic Assessment & Plan: Continue Atorvastatin, BB (4) Essential (primary) hypertension Status: Chronic Assessment & Plan: Continue BB, Lasix with potassium supplement (5) Mixed hyperlipidemia Status: Chronic Assessment & Plan: Takes Atorvastatin (6) Cigarette nicotine dependence, uncomplicated Status: Chronic (7) Carotid aneurysm, right Status: Chronic Plan/Intensity of Service 09/20/16 AFib:Continue Sotalol 40mg po BID. Eliquis stopped, not a good candidate for anticoagulation. Has a history of recurrent GI bleeding. 09/21/16 DC Imdur and Lasix as BP is borderline low. 09/22/16 Bradycardic, side effect of Sotalol. BP stable today, HGB stable Thank you for allowing us to participate in the care of this patient. We will follow along with you. GIOVANI GORE MD 09/24/16 1531: Assessment & Plan Plan/Intensity of Service After examining the patient I agree with the above assessment. I am involved in the formulation of the patient's plan of care. KILO GANT APRN Sep 22, 2016 12:36 GIOVANI GORE MD Sep 24, 2016 15:31
--- NOTE | 2016-09-22 13:48 | NUR ---
DIET PT TOLERATED CL DIET WITHOUT N/V. DIET ADVANCED FOR SUPPER.
[2016-09-22 14:21] LABS: HCT - HEMATOCRIT 26.8 % (36-46); HGB - HEMOGLOBIN 8.1 GM/DL (12-16)
[2016-09-22] MEDS ORDERED: FOLI1TAB15 PO (15:07)
[2016-09-22] MEDS ORDERED: CYAN10009 PO (15:07)
[2016-09-22] MEDS ORDERED: OMEP20CA10 PO (15:07)
[2016-09-22] MEDS ORDERED: SUCR1TAB20 PO (15:07)
[2016-09-22] MEDS ORDERED: NICO1PAT15 TD (15:07)
[2016-09-22] MEDS ORDERED: FERR324T4 PO (15:07)
--- NOTE | 2016-09-22 15:38 | OPNOTEF ---
DATE OF OPERATION 09/22/2016 SURGEON Sebastien Man MD PREOPERATIVE DIAGNOSES 1. Chronic melena. 2. Acute blood loss anemia secondary to GI blood losses. 3. Anticoagulation with Eliquis - held prior to procedure for greater than 72 hours. 4. Irritable bowel syndrome. POSTOPERATIVE DIAGNOSES 1. Mild gastritis with small ulceration of the gastric antrum. 2. Mild duodenitis. 3. Chronic melena. 4. Acute blood loss anemia secondary to GI blood losses. PROCEDURE Esophagogastroduodenoscopy with antral biopsy for MIRNA testing, antral biopsies and duodenal biopsies for histology. ANESTHESIA TIVA ASA Class 3 INDICATIONS The patient is a 61-year-old female who had been anticoagulated with Eliquis. For the last year she had been having chronic melanotic stools. She was admitted to the hospital for a hemoglobin of 4.8. Her Eliquis and aspirin were held. She had an outpatient workup of her melanoma scheduled with Dr. Dahl in [place] but she had delayed this due to a surgery that her daughter was scheduled for. She had had other attempted colonoscopies with two failed attempts at colonoscopy performed in the spring. Esophagogastroduodenoscopy was recommended for investigation for possible sources of her blood loss. Colonoscopy was not recommended given the failed prior attempts. FINDINGS The antrum at the level of the pylorus showed mild irritation but there was a small ulcerated area at the antrum. There was also mild duodenitis. The remainder of the stomach was normal. The esophagus was normal. DESCRIPTION OF PROCEDURE After informed consent was obtained the patient was taken to the endoscopy suite and placed in left lateral decubitus position. IV anesthesia was administered by the anesthesia team. A bite block was inserted followed by an Olympus video gastroscope. The gastroscope was advanced down to the third portion of the duodenum under direct vision. The scope was slowly withdrawn, examining the mucosa circumferentially. A biopsy of the antrum was taken for MIRNA testing given the irritation. The scope was returned to the duodenum and biopsies of the duodenal bulb were taken in the areas of irritation. Additional biopsies were taken of the antrum and were also sent to Pathology for analysis. The scope was retroflexed in the stomach to examine the cardiac and fundic portions of the stomach. The carbon dioxide insufflation was evacuated from the stomach and the scope was withdrawn into the distal esophagus. The Z-line was sharp. The scope was then slowly withdrawn, examining the mucosa circumferentially. No other abnormalities were noted. The patient tolerated the procedure well. RECOMMENDATIONS 1. Add Carafate to medical regimen for two months. 2. Continue PPI for at least two months. 3. Await pathology results. 4. Avoid anticoagulation if possible in case source for GI loss is elsewhere in the gastrointestinal tract. 5. If melena continues she will need referral back to Dr. Dahl to consider capsule endoscopy or repeat attempts at colonoscopy. REGINALD
--- NOTE | 2016-09-22 16:40 | NUR ---
DISCHARGE DISCHARGE INSTRUCTIONS EXPLAINED TO PATIENT. IVLX2 DC'D. TELE DC'D. SCRIPTS X6 GIVEN TO PT PER HER REQUEST, COPIES PLACED IN CHART. PT ASSISTED OUT VIA WHEELCHAIR. BELONGINGS WERE PACKED AND SENT WITH PATIENT.
[2016-09-22] MEDS ORDERED: OMEPRAZOLE 20 MG CAPSULE PO SCH (17:00)
--- NOTE | 2016-09-22 21:05 | DSPDOC ---
General Date Date DATE: 09/22/16 TIME: 20:41 Attending Physician April Navarro MD Admitting Physician April Navarro MD Consulting Physician Tony Gurrola MD, John MD Admitting Diagnosis anemia, GI bleed Discharge Diagnosis 1. Acute/chronic GI bleed with blood loss anemia 2. Gastritis/duodenitis with small gastric ulceration 3. Paroxysmal atrial fibrillation 4. Hypotension, resolved 5. Hypertension, chronic 6. Coronary artery disease 7. Borderline low B-12 level 8. Probable COPD 9. Abdominal aortic aneurysm 10. Hyperlipidemia Procedures EGD by Dr. Man on 09/22 revealed mild gastritis with small ulceration in the gastric antrum and mild duodenitis. Antral biopsy for MIRNA test and antral/ duodenal biopsies pending at discharge. Laboratory Laboratory Tests Test 09/21/16 14:23 09/21/16 22:04 09/22/16 05:53 09/22/16 13:58 Hemoglobin 8.0GM/DL (12-16) 7.9GM/DL (12-16) 8.6GM/DL (12-16) 8.1GM/DL (12-16) Hematocrit 25.1% (36-46) 27.8% (36-46) 26.8% (36-46) White Blood Count 4.6T/MM3 (4.5-11.0) Red Blood Count 3.09M/MM3 (4.00-5.20) Mean Corpuscular Volume 90.0UM3 (80-100) Mean Corpuscular Hemoglobin 27.8UUG (26-34) Mean Corpuscular Hemoglobin Concent 30.9GM/DL (31-37) RDW Standard Deviation 52.2FL (36.9-50.2) Platelet Count 284T/MM3 (130-400) Mean Platelet Volume 10.8UM3 (9.4-12.4) Immature Granulocyte % (Auto) 0.9% (0.0-0.5) Neutrophils (%) (Auto) 50.4% (33-66) Lymphocytes (%) (Auto) 32.2% (23-45) Monocytes (%) (Auto) 11.7% (0-9.0) Eosinophils (%) (Auto) 3.3% (0-4) Basophils (%) (Auto) 1.5% (0-2) Absolute Immature Granulocyte (auto 0.04T/MM3 (0.00-0.03) Absolute Neutrophils (auto) 2.3T/MM3 (1.8-7.7) Absolute Lymphocytes (auto) 1.5T/MM3 (1-4.8) Absolute Monocytes (auto) 0.5T/MM3 (0-0.8) Absolute Eosinophils (auto) 0.2T/MM3 (0-0.5) Absolute Basophils (auto) 0.1T/MM3 (0-0.2) Turbidity < 20 (0-20) Sodium Level 147MEQ/L (134-144) Potassium Level 4.3MEQ/L (3.6-5) Chloride Level 110MEQ/L (98-107) Carbon Dioxide Level 29MEQ/L (22-30) Anion Gap 8MEQ/L (5-15) Blood Urea Nitrogen 11.0MG/DL (7-17) Creatinine 0.8MG/DL (0.7-1.2) Glomerular Filtration Rate Calc 73 BUN/Creatinine Ratio 14RATIO (6-26) Glucose Level 79MG/DL (65-110) Calculated Osmolality 280MOSM/KG (261-280) Calcium Level 8.6MG/DL (8.4-10.2) Icterus Index < 2 (0-7) Chemistry Specimen Hemolysis < 15 (0-25) On admission hemoglobin 4.8 with hematocrit 16.2, MCV 93.1 and platelet count 245,000 Vitamin B-12 level CCL, folic acid 4.6, serum iron 47, TIBC 321, iron saturation 15% TSH 3.12 History of Present Illness This is a 61 y/o female w/ h/o IBS, anemia, chronic melena, AAA, Carotid artery aneurysm s/p stent and multiple other medical issues who presents to ED at [facility] [place] w / chief concern of several weeks h/o generalized weakness, exertional fatigue, diffuse muscle pains that have progressively worsened over the past few days. Patient states she has had chronic intermittent melena but no BRBPR. Patient had similar issue about one year ago and was noted to be anemic at that time. Patient is on Eliquis and ASA. In ED she was noted to have low BP w/ SBP of 77 that improved to high 90s after IV fluids, and her Hgb was noted to be 4.8. Typed and Crossed for 2 units - but blood transfusion was not given in ER. Patient admitted to the CCU on the Hospitalist service for further evaluation and management. Hospital Course Acute blood loss anemia/chronic anemia Acute/chronic GI bleed Gastritis/duodenitis/small gastric ulcer Borderline low B-12 Hypotension, resolved Hyponatremia, transient Hypoxia, resolved Possible COPD Tobacco abuse Carotid stent Paroxysmal atrial fibrillation, in sinus rhythm Hypothyroidism Chronic pain Abdominal aortic aneurysm Mrs. Jay was admitted with melanotic stools with worsening symptoms and marked normocytic anemia. She was treated with IV fluids and IV PPI on admission. She was transfused 2 units of packed red blood cells on admission with hemoglobin improving to 8.8. Hemoglobin remained relatively stable thereafter and further transfusion was not needed. Blood pressure was low initially but stabilized following transfusion. Low normal blood pressures were seen on several occasions thereafter prompting discontinuation of isosorbide mononitrate and Lasix. Patient was seen in consultation by Dr. Evelyn Man and Dr. Gurrola. Discontinuation of Eliquis and aspirin was advised as the patient is had a prior GI bleed without definite bleeding site identified. The patient subsequently went to upper endoscopy on 09/22 after she had been off Eliquis for 3 days. Mild gastritis and duodenitis were demonstrated with a small antral ulceration. Post procedure the patient was able to resume oral intake and was converted from IV to oral PPI (twice a day for 2 weeks followed by daily for 6 additional weeks) with addition of Carafate 4 times a day for 2 months. Testing for Helicobacter is pending at discharge and biopsies obtained at EGD are likewise pending. Iron studies were unremarkable although saturation was in the low normal range. Vitamin B-12 level and folic acid levels were both low normal. Supplementation of all nutritional supplements was initiated. The patient's hospital course was otherwise uncomplicated and she remains on usual medications outside of above noted changes. She was advised that she could opt to use a B-multivitamin in place of vitamin B-12 and folic acid. The patient reported no concerns following recovery from EGD on 09/22. She tolerated liquids well and was breathing without difficulty. Abdomen was benign and respirations nonlabored with good airflow. Patient was felt stable for discharge at this time with medication changes as noted above-medication changes reviewed with the patient and her in detail. She is asked to follow-up with Dr. Richmond in approximately 1 week for reassessment of hemoglobin and to review medications. Additionally the patient was advised that if she has ongoing difficulty with anemia and suggested blood loss capsule endoscopy by Dr. Dahl may need to be considered. >30 minutes spent on patient care and discharge care coordination today on the date of discharge. -- Problems: Code Status Full Code Home Meds Active Scripts Cyanocobalamin (Vitamin B-12) (Vitamin B-12) 1,000 Mcg Tablet, 1 TAB PO DAILY, # 30 TAB 2 Refills Prov:JONNY JOSÉ MD 09/22/16 Folic Acid (Folic Acid) 1 Mg Tablet, 1 MG PO DAILY, #60 TAB Prov:JONNY JOSÉ MD 09/22/16 Sucralfate (Carafate) 1 Gm Tablet, 1 G PO ACHS for gastritis for 30 Days, TAB Prov:JONNY JOSÉ MD 09/22/16 Omeprazole (Omeprazole) 20 Mg Capsule.dr, 20 MG PO ACBID, #60 CAP Take twice daily for 10 days and then once daily for 6 weeks Prov:JONNY JOSÉ MD 09/22/16 Ferrous Sulfate (Ferrous Sulfate) 324 Mg Tablet.dr, 324 MG PO WB for anemia, # 100 TAB Prov:JONNY JOSÉ MD 09/22/16 Nicotine (Nicotine Patch 14 mg/24 hr) 1 Each Patch.td24, 14 MG TD DAILY for 14 Days Prov:JONNY JOSÉ MD 09/22/16 Ondansetron (Zofran Odt) 4 Mg Tab.rapdis, 4 MG PO Q4HR Y for NAUSEA &/OR VOMITING for 3 Days, #18 TAB 0 Refills Prov:CHICHO LORENZO DO 09/01/16 Sotalol HCl (Betapace) 80 Mg Tablet, 40 MG PO ACBID, #60 TAB Prov:PURVI ELIZABETH APRN 02/28/15 Reported Medications Hyoscyamine (Levbid) 0.375 Mg Tablet, 1 TAB PO BID, #60 TAB 2 Refills 09/19/16 Hydrocodone/Apap ([place] 5-325 Tablet) 5-325 Tablet, 1 TAB PO Q4-6HPRN 09/01/16 Levothyroxine Sodium (Levothyroxine Sodium) 100 Mcg Tablet, 100 MCG PO QD 09/01/16 Atorvastatin Calcium (Atorvastatin Calcium) 40 Mg Tablet, 1 TAB PO HS, TAB 02/27/15 Gabapentin (Gabapentin) 100 Mg Capsule, 1 CAP PO DAILY, CAP 02/27/15 Escitalopram Oxalate (Escitalopram Oxalate) 20 Mg Tablet, 1 TAB PO DAILY, TAB 02/27/15 Discontinued Reported Medications Apixaban (Eliquis) 5 Mg Tablet, PO DAILY 09/19/16 Isosorbide Mononitrate (Isosorbide Mononitrate ER) 30 Mg Tab.er.24h, 1 TAB PO DAILY, #30 TAB 09/19/16 Potassium Chloride (Potassium Chloride) 20 Meq Tab.er.prt, 20 MEQ PO QD 09/01/16 Furosemide (Furosemide) 20 Mg Tablet, 20 MG PO QD 09/01/16 Aspirin (Aspirin) 325 Mg Tablet, 325 MG PO DAILY, TAB 02/27/15 Discontinued Scripts Oxycodone HCl/Acetaminophen (Percocet 5-325 mg Tablet) 5-325 Tablet, 1 TAB PO Q4HR Y for PAIN for 3 Days, #18 TAB 0 Refills Prov:CHICHO LORENZO Araceli DO 09/01/16 Face to Face Encounter I met with patient on the day of dismissal and discussed follow up appointments , medications, and safety plan. Discharge Disposition Home Copies To 1: TONY GURROLA MD; SANJEEV RICHMOND MD; EVELYN MAN MD Documentation Requirements Documenting Diagnosis Anemia Anemia Anemia Etiology: Blood Loss Anemia Acuity: Acute on Chronic JONNY JOSÉ MD Sep 22, 2016 20:46
== END 2016-09-22 16:40 | disposition home or self-care (01) | DRG 812 ==
LOC: ED 21:03 → CCU 23:07 → EDHOLD 23:07 → MED 09-20 16:20
PROVIDERS: ADMIT Internal Medicine; ATTEND Internal Medicine
PROC: 30233N1 Transfusion of Nonautologous Red Blood Cells into Peripheral Vein, Percutaneous Approach (ICD-10-PCS; 2016-09-18)
PROC: 0DB68ZX Excision of Stomach, Via Natural or Artificial Opening Endoscopic, Diagnostic (ICD-10-PCS; 2016-09-22)
PROC: 0DB98ZX Excision of Duodenum, Via Natural or Artificial Opening Endoscopic, Diagnostic (ICD-10-PCS; principal; 2016-09-22 10:10)
DX: D62 Acute posthemorrhagic anemia (principal); K92.1 Melena; I95.9 Hypotension, unspecified; E86.0 Dehydration; I10 Essential (primary) hypertension; G89.29 Other chronic pain; E03.9 Hypothyroidism, unspecified; F17.210 Nicotine dependence, cigarettes, uncomplicated; K58.9 Irritable bowel syndrome, unspecified; R09.02 Hypoxemia; I71.4 Abdominal aortic aneurysm, without rupture; D50.0 Iron deficiency anemia secondary to blood loss (chronic); F41.9 Anxiety disorder, unspecified; F32.9 Major depressive disorder, single episode, unspecified; M54.9 Dorsalgia, unspecified; I48.0 Paroxysmal atrial fibrillation; I72.0 Aneurysm of carotid artery; E78.2 Mixed hyperlipidemia; K29.00 Acute gastritis without bleeding; K29.80 Duodenitis without bleeding; J44.9 Chronic obstructive pulmonary disease, unspecified; I25.10 Atherosclerotic heart disease of native coronary artery without angina pectoris; E53.8 Deficiency of other specified B group vitamins; Z79.82 Long term (current) use of aspirin; Z79.01 Long term (current) use of anticoagulants; Z79.899 Other long term (current) drug therapy; Z79.891 Long term (current) use of opiate analgesic
CPT/HCPCS: 43239; 43250; S9538; 36415; 36416; 80048; 80053; 81001; 82272; 82550; 82607; 82746; 83540; 83550; 83735; 84100; 84443; 84484; 85007; 85014; 85018; 85025; 85027; 86850; 86900; 86901; 86920; 86922; 87081; 88305; 88342; 93005; 94640; 99406

== ENCOUNTER 2016-09-29 06:27 | Observation (INO) | payer MEDICARE, BC ==
[~2016-09-29] VITALS: Ht 160 cm; Wt 76.8 kg
[2016-09-29] VITALS (8 sets, daily range): BP systolic 126–168; BP diastolic 82–108; PULSE 68–115; RESP 20–28; TEMP 98.7; O2SAT 96–98; Ht 160 cm; Wt 76.8 kg
[~2016-09-29 06:27] MED LIST changes: +APIX5TAB PO; +CYAN10009 PO; +FERR324T4 PO; +FOLI1TAB15 PO; +HYOS0.3730 PO; +ISOS30TA6 PO; +NICO1PAT15 TD; +OMEP20CA10 PO; +SUCR1TAB20 PO
--- OUTSIDE RECORDS SUMMARY | 2016-09-29 06:33 | XMS REPORT | Continuity of Care Document ---
Author Author [facility] Address Unknown Phone Unavailable Support Name Relationship Address Phone HU HDEZ MD Caregiver [address] [place] [address] Unavailable MARICRUZ LENTZ MD Caregiver [address] [place] [address] Unavailable ULISES ZUNIGA MD Caregiver [address] [place] [address] Unavailable HU GARCIA MD Caregiver [address] [facility] [place] [address] Unavailable STEVE JAY Next Of Kin [address] [place] [id number] Insurance Providers Guarantor Tiffanie Jay Address [address] [place] [address] Email DENIED 2016 [facility] Policy Number [id number] Subscriber's Name Steve Jay Relationship 01 Spouse Group Number [id number] Payer Medicare Policy Number [id number] Subscriber's Name Tiffanie Jay Relationship 18 Self Advance Directives Directive Response Recorded Date/Time Dr Ordered Resuscitation Status Full Code 09/18/16 11:07pm Resuscitation Documents on File No 09/18/16 11:53pm DPOA for Healthcare Only No 09/20/16 11:40am Living Will Yes 09/18/16 11:53pm Problems Active Problems Medical Problem Onset Date Status AAA (abdominal aortic aneurysm) Unknown Chronic 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 Atrial fibrillation Unknown Acute Carotid aneurysm, right Unknown Chronic Chronic pain Unknown Chronic Cigarette nicotine dependence, uncomplicated Unknown Chronic Essential (primary) hypertension Unknown Chronic History of anemia Unknown Chronic Hypothyroidism Unknown Chronic IBS (irritable bowel syndrome) Unknown Chronic Mixed hyperlipidemia Unknown Chronic Paroxysmal atrial fibrillation Unknown Chronic Past Problems Medical Problem Onset Date Acute chest wall pain Unknown GI bleed Unknown Medications Current Home Medications Medication Dose Units Route Directions Days Qty Instructions Start Date Acetaminophen/Hydrocodone Bitart (Cunningham 5-325 Tablet) 5-325 Tablet 1 Tab Oral Every 4-6 Hours Prn 09/01/16 Atorvastatin Calcium 40 Mg Tablet 1 Tab Oral Bedtime 02/27/15 Cyanocobalamin (Vitamin B-12) (Vitamin B-12) 1,000 Mcg Tablet 1 Tab Oral Daily 30 Tablet 09/22/16 Escitalopram Oxalate 20 Mg Tablet 1 Tab Oral Daily 02/27/15 Ferrous Sulfate 324 Mg Tablet.dr 324 Mg Oral Give With Breakfast for Anemia 100 Tablet 09/22/16 Folic Acid 1 Mg Tablet 1 Mg Oral Daily 60 Tablet 09/22/16 Gabapentin 100 Mg Capsule 1 Cap Oral Daily 02/27/15 Hyoscyamine (Levbid) 0.375 Mg Tablet 1 Tab Oral Twice A Day 60 Tablet 09/19/16 Levothyroxine Sodium 100 Mcg Tablet 100 Mcg Oral Qd 09/01/16 Nicotine (Nicotine Patch 14 Mg/24 Hr) 1 Each Patch.td24 14 Mg Transderm Daily 14 Days 09/22/16 Omeprazole 20 Mg Capsule.dr 20 Mg Oral Before Meals Twice A Day 60 Capsule Take twice daily for 10 days and then once daily for 6 weeks 09/22/16 Ondansetron (Zofran Odt) 4 Mg Tab.rapdis 4 Mg Oral Every 4 Hours as needed for Nausea &/Or Vomiting 3 Days 18 Tablet 09/01/16 Sotalol Hcl (Betapace) 80 Mg Tablet 40 Mg Oral Before Meals Twice A Day 60 Tablet 02/28/15 Sucralfate (Carafate) 1 Gm Tablet 1 G Oral Before Meals And At Bedtime for Gastritis 30 Days 09/22/16 Past Home Medications Medication Directions Ordered Status Apixaban (Eliquis) 5 Mg Tablet, Oral Daily 09/19/16 Discontinued Aspirin 325 Mg Tablet, 325 Mg Oral Daily 02/27/15 Discontinued Aspirin 81 Mg Tab.chew, 81 Mg Oral 09/13/11 Discontinued Cyclobenzaprine Hcl 10 Mg Tablet, 10 Mg Oral Daily 09/13/11 Discontinued Furosemide 20 Mg Tablet, 20 Mg Oral Qd 09/01/16 Discontinued Hydrocodone/Acetaminophen (Cunningham 5-325 Tablet) 1 Each Tablet, 1-2 Tab Oral Every 6 Hours as needed for Pain 11/24/14 Discontinued Isosorbide Mononitrate (Isosorbide Mononitrate Er) 30 Mg Tab.er.24h, 1 Tab Oral Daily 09/19/16 Discontinued Levothyroxine Sodium 75 Mcg Tablet, 75 Mcg Perfusion Daily 09/14/11 Discontinued Lisinopril 20 Mg Tablet, 20 Mg Oral Daily 09/13/11 Discontinued Metoprolol Tartrate 25 Mg Tablet, 25 Mg Oral Twice Daily With Meals 02/27/15 Discontinued Oxybutynin , 15 Daily 09/13/11 Discontinued Oxycodone Hcl/Acetaminophen (Percocet 5-325 Mg Tablet) 5-325 Tablet, 1 Tab Oral Every 4 Hours as needed for Pain 09/01/16 Discontinued Potassium Chloride 20 Meq Tab.er.prt, 20 Meq Oral Qd 09/01/16 Discontinued Simvastatin 20 Mg Tablet, 20 Mg Oral Daily 09/13/11 Discontinued Ubidecarenone/Vitamin E (Co Q-10 50 Mg Softgel) 1 Cap Capsule, 1 Cap Oral Daily 09/13/11 Discontinued Venlafaxine Hcl 37.5 Mg Tablet, 37.5 Mg Oral Daily 09/13/11 Discontinued Social History Social History Problem Response Recorded Date/Time Onset Date Status Reason for Hospitalization fatigue 09/22/2016 4:15pm Not Applicable Not Applicable Hx Substance Use No 09/18/2016 10:09pm Not Applicable Not Applicable Hx Alcohol Use No 09/18/2016 10:09pm Not Applicable Not Applicable Has the pt used tobacco in the last 12 months Yes 09/18/2016 11:56pm Not Applicable Not Applicable Tobacco Usage none 11/29/2014 8:30am Not Applicable Not Applicable [facility] Appointment - [facility] Will Call Patient faxed LEXY QUIT 09/22/2016 4: 15pm Not Applicable Not Applicable Query Response Start Date Stop Date Smoking Status Current every day smoker Hospital Discharge Instructions Instructions: Care Instructions: Reason for Hospitalization: fatigue I was in the hospital because (patient own words): "I can't stand up and walk. I'm very weak. My legs go numb." Discharge Diet: diabetic Discharge Activity: As tolerates Follow Up Appointments: Dr. Gore in one month, Dr. Richmond in one DR. GORE APPOINTMENT ON 10/26/2016 AT 9:20 AM--[phone] DR. RICHMOND APPOINTMENT ON 09/29/2016 AT 1:30 PM --[phone] Alia Appointment - [facility] Will Call Patient: faxed LEXY MEYER Pending Lab / Results: Follow up w/ your PCP Patient Instructions: For gastritis and duodenitis take omeprazole twice daily for 10 days and then decrease to once daily for an additional 6 weeks. Additionally take Carafate 4 times daily for 8 weeks. Biopsies obtained at endoscopy and testing for bacteria associated with ulcer disease is pending at discharge. Aspirin and Eliquis have been discontinued due to bleeding. Furosemide and immature were discontinued due to low blood pressures. Your vitamin B-12 level was low and you were started on a combination of B vitamins-prescriptions included for folic acid and B-12. Alternately you could get a B complex multivitamin and have levels rechecked in 3-6 months. Aspirin and Eliquis were discontinued due to bleeding. Furosamide and isosorbide were discontinued due to low blood pressure. Wound/Incision Care: Not applicable Durable Medical Equipment: Not applicable Pain Management/Treatment: Tylenol or hydrocodone as previously prescribed Expected Signs/Symptoms: Dark or black stools due to iron pills Notify Physician If: Increasing weakness or shortness of breath with activities, worsening diarrhea or obvious blood in stool During Business Hours:: Please call the physician's office at After Business Hours:: Please call [phone] and have the flattening machine operator page the physician. Condition at time of discharge: Good Plan of Care Discharge Date 09/22/16 4:40pm Disposition 01 DISCHARGED HOME, SELF-CARE Instructions/Education Provided Gastrointestinal Bleeding (GEN) Prescriptions See Medication Section Care Plan and Goals See Discharge Instructions Section Functional Status Query Response Date Recorded Mobility Status Ambulatory September 22, 2016 4:15pm Assistive Devices None September 22, 2016 4:15pm Activity Limitations Weakness September 22, 2016 4:15pm Feeding Ability Independent September 22, 2016 4:15pm Toileting Ability Independent September 22, 2016 4:15pm Grooming Ability Independent September 22, 2016 4:15pm Dressing Ability Independent September 22, 2016 4:15pm Driving Ability Dependent September 22, 2016 4:15pm Housework Ability Assist September 22, 2016 4:15pm Meal Preparation Ability Assist September 22, 2016 4:15pm Stair Climbing Ability Assist September 22, 2016 4:15pm Ability to complete ADL's impeded by No change September 22, 2016 4:15pm Cognitive/Perceptual Impairments None September 22, 2016 4:15pm Preferred Method of Learning Listening September 21, 2016 11:46pm Allergies, Adverse Reactions, Alerts Allergen Type Severity Reaction Status Last Updated Sulfa (Sulfonamide Antibiotics) Allergy Unknown UNKNOWN Active 09/18/16 ZOMAX Allergy Unknown HIVES Active 02/27/15 Immunizations Query Response on File Recorded Date/Time Hx Influenza Vaccination No 09/18/16 11:56pm Hx Pneumococcal Vaccination No 09/18/16 11:56pm Hx Influenza Vaccination No 09/18/16 11:56pm Influenza Vaccine Hx NOT UP TO DATE 09/18/16 10:09pm Vital Signs Acute Vital Signs Vital Response Date/Time Temperature (Fahrenheit) 96.4 deg F (96.8 - 99.1) 09/22/2016 11:06am Temperature (Calculated Celsius) 35.30409 degrees C (36.0 - 37.3) 09/22/2016 11:06am Temperature Source Temporal 09/22/2016 10:57am Pulse Rate (adult) 62 bpm (60 - 100) 09/22/2016 2:51pm Respiratory Rate 16 breaths/min (10 - 20) 09/22/2016 2:51pm O2 Sat by Pulse Oximetry 96 % (90 - 100) 09/22/2016 2:51pm Oxygen Delivery Method Room Air 09/22/2016 2:51pm Oxygen Flow Rate 6.00 L/min 09/22/2016 10:30am Blood Pressure 134/69 mm Hg 09/22/2016 2:51pm Blood Pressure Source Automatic Cuff 09/22/2016 2:51pm Height (Feet) 5 feet 09/22/2016 12:38pm Height (Inches) 3.00 inches 09/22/2016 12:38pm Weight (Kilograms) 72.600 kg 09/22/2016 8:03am Body Mass Index (BMI) 28.7 09/18/2016 11:51pm Results Laboratory Results Test Name Result Units Flags Reference Collection Date/Time Result Date/ Time Comments White Blood Count 4.6 T/MM3 4.5-11.0 09/22/2016 5:53am 09/22/2016 6: 19am Red Blood Count 3.09 M/MM3 L 4.00-5.20 09/22/2016 5:53am 09/22/2016 6: 19am Hemoglobin 8.1 GM/DL L 12-16 09/22/2016 1:58pm 09/22/2016 2:21pm Hematocrit 26.8 % L 36-46 09/22/2016 1:58pm 09/22/2016 2:21pm Mean Corpuscular Volume 90.0 UM3 80-100 09/22/2016 5:53am 09/22/2016 6: 19am Mean Corpuscular Hemoglobin 27.8 UUG 26-34 09/22/2016 5:53am 2016 6:19am Mean Corpuscular Hemoglobin Concent 30.9 GM/DL L 31-37 09/22/2016 5:53am 09/22/2016 6:19am RDW Standard Deviation 52.2 FL H 36.9-50.2 09/22/2016 5:53am 09/22/2016 6:19am Platelet Count 284 T/MM3 130-400 09/22/2016 5:53am 09/22/2016 6:19am Mean Platelet Volume 10.8 UM3 9.4-12.4 09/22/2016 5:53am 09/22/2016 6: 19am Neutrophils (%) (Auto) 50.4 % 33-66 09/22/2016 5:53am 09/22/2016 6: 19am Lymphocytes (%) (Auto) 32.2 % 23-45 09/22/2016 5:53am 09/22/2016 6: 19am Monocytes (%) (Auto) 11.7 % H 0-9.0 09/22/2016 5:53am 09/22/2016 6:19am Eosinophils (%) (Auto) 3.3 % 0-4 09/22/2016 5:53am 09/22/2016 6:19am Basophils (%) (Auto) 1.5 % 0-2 09/22/2016 5:53am 09/22/2016 6:19am Immature Granulocyte % (Auto) 0.9 % H 0.0-0.5 09/22/2016 5:53am 2016 6:19am Absolute Neutrophils (auto) 2.3 T/MM3 1.8-7.7 09/22/2016 5:53am 2016 6:19am Absolute Lymphocytes (auto) 1.5 T/MM3 1-4.8 09/22/2016 5:53am 2016 6:19am Absolute Monocytes (auto) 0.5 T/MM3 0-0.8 09/22/2016 5:53am 09/22/2016 6:19am Absolute Eosinophils (auto) 0.2 T/MM3 0-0.5 09/22/2016 5:53am 2016 6:19am Absolute Basophils (auto) 0.1 T/MM3 0-0.2 09/22/2016 5:53am 09/22/2016 6:19am Absolute Immature Granulocyte (auto 0.04 T/MM3 H 0.00-0.03 09/22/2016 5: 53am 09/22/2016 6:19am Neutrophils % (Manual) 70.0 % H 33-66 09/20/2016 2:48am 09/20/2016 5: 46am Band Neutrophils % 1.0 % 0-6 09/20/2016 2:48am 09/20/2016 5:46am Lymphocytes % (Manual) 27.0 % 23-45 09/20/2016 2:48am 09/20/2016 5: 46am Monocytes % (Manual) 2.0 % 0-9.0 09/20/2016 2:48am 09/20/2016 5:46am Band Neutrophils # 0.1 T/MM3 09/20/2016 2:48am 09/20/2016 5:46am Absolute Neutrophils (Manual) 4.9 T/MM3 1.8-7.7 09/20/2016 2:48am 09/20 5:46am Lymphocytes # (Manual) 1.9 T/MM3 1-4.8 09/20/2016 2:48am 09/20/2016 5: 46am Monocytes # (Manual) 0.1 T/MM3 0-0.8 09/20/2016 2:48am 09/20/2016 5: 46am Red Cell Morphology Comment NORMAL 09/20/2016 2:48am 09/20/2016 5: 46am Icterus Index < 2 0-7 09/22/2016 5:53am 09/22/2016 6:24am Chemistry Specimen Hemolysis < 15 0-25 09/22/2016 5:53am 09/22/2016 6 :24am 0-25: Specimen Exhibited No Hemolysis. Turbidity < 20 0-20 09/22/2016 5:53am 09/22/2016 6:24am Sodium Level 147 MEQ/L H 134-144 09/22/2016 5:53am 09/22/2016 6:24am Potassium Level 4.3 MEQ/L 3.6-5 09/22/2016 5:53am 09/22/2016 6:24am Chloride Level 110 MEQ/L H 98-107 09/22/2016 5:53am 09/22/2016 6:24am Carbon Dioxide Level 29 MEQ/L 22-30 09/22/2016 5:53am 09/22/2016 6: 24am Anion Gap 8 MEQ/L 5-15 09/22/2016 5:53am 09/22/2016 6:24am Blood Urea Nitrogen 11.0 MG/DL 7-09/22/2016 5:53am 09/22/2016 6: 24am Creatinine 0.8 MG/DL 0.7-1.2 09/22/2016 5:53am 09/22/2016 6:24am BUN/Creatinine Ratio 14 RATIO 6-09/22/2016 5:53am 09/22/2016 6:24am Glomerular Filtration Rate Calc 73 09/22/2016 5:53am 09/22/2016 6: 24am Glucose Level 79 MG/DL 65-110 09/22/2016 5:53am 09/22/2016 6:24am Calculated Osmolality 280 MOSM/KG 261-280 09/22/2016 5:53am 09/22/2016 6:24am Calcium Level 8.6 MG/DL 8.4-10.2 09/22/2016 5:53am 09/22/2016 6:24am Phosphorus Level 3.6 MG/DL 2.5-4.5 09/19/2016 7:00am 09/19/2016 3:05pm Total Bilirubin 0.60 MG/DL 0.20-1.30 09/18/2016 10:32pm 09/18/2016 10: 56pm Alkaline Phosphatase 83 U/L 38-126 09/18/2016 10:32pm 09/18/2016 10: 56pm Total Protein 4.9 G/DL L 6.3-8.2 09/18/2016 10:32pm 09/18/2016 10:56pm Albumin 2.7 G/DL L 3.5-5.0 09/18/2016 10:32pm 09/18/2016 10:56pm Globulin 2.2 G/DL L 2.4-3.6 09/18/2016 10:32pm 09/18/2016 10:56pm Albumin/Globulin Ratio 1.2 RATIO 1.1-2.2 09/18/2016 10:32pm 09/18/2016 10:56pm Aspartate Amino Transf (AST/SGOT) 11 U/L L 14-36 09/18/2016 10:32pm 06/2016 10:56pm Alanine Aminotransferase (ALT/SGPT) 26 U/L 9-52 09/18/2016 10:32pm 06/2016 10:56pm Total Creatine Kinase 56 U/L 30-135 09/19/2016 7:00am 09/19/2016 3: 05pm Troponin I < 0.012 ng/ml 0-0.12 09/18/2016 10:32pm 09/18/2016 11:07pm Troponin values with a difference of 55% increase from orginal troponin value represent a true biological DELTA value. (%increase Calc=Orginal Troponin value, divided by subsequent Troponin value, multiplied by 100) Magnesium Level 2.0 MG/DL 1.6-2.3 09/19/2016 7:00am 09/19/2016 2:59pm Iron Level 47 UG/DL 37-170 09/19/2016 7:00am 09/20/2016 1:45am Total Iron Binding Capacity 321 UG/DL 261-497 09/19/2016 7:00am 2016 1:54am Percent Iron Saturation 15 % 9-55 09/19/2016 7:00am 09/20/2016 1:54am Vitamin B12 Level 250 PG/ML 239-931 09/19/2016 7:00am 09/20/2016 2: 54am Folate 4.6 NG/ML 2.76-20 09/19/2016 7:00am 09/20/2016 2:54am NORMAL ADULT RANGE: 2.76->20 ng/mL Thyroid Stimulating Hormone (TSH) 3.12 MIU/L 0.47-4.68 09/19/2016 7: 00am 09/19/2016 3:30pm Stool Occult Blood POSITIVE A 09/20/2016 9:47am 09/20/2016 10:34am Urine Collection Type CLE[place]ATCH-MIDSTREAM 09/19/2016 10:28pm 09/19 10:36pm Urine Color YELLOW YELLOW 09/19/2016 10:28pm 09/19/2016 10:36pm Urine Turbidity CLEAR CLEAR 09/19/2016 10:28pm 09/19/2016 10:36pm Urine Specific [place] 1.010 L 1.015-1.025 09/19/2016 10:28pm 2016 10:36pm Urine pH 6.5 5.0-8.0 09/19/2016 10:28pm 09/19/2016 10:36pm Urine Leukocyte Esterase 1+ A NEGATIVE 09/19/2016 10:28pm 09/19/2016 10:36pm Urine Nitrite NEGATIVE NEGATIVE 09/19/2016 10:28pm 09/19/2016 10: 36pm Urine Protein NEGATIVE NEGATIVE 09/19/2016 10:28pm 09/19/2016 10: 36pm Urine Glucose (UA) NEGATIVE NEGATIVE 09/19/2016 10:28pm 09/19/2016 10 :36pm Urine Ketones NEGATIVE NEGATIVE 09/19/2016 10:28pm 09/19/2016 10: 36pm Urine Urobilinogen 1.0 EU/DL NORMAL 09/19/2016 10:28pm 09/19/2016 10: 36pm Urine Bilirubin NEGATIVE NEGATIVE 09/19/2016 10:28pm 09/19/2016 10: 36pm Urine Blood 1+ A NEGATIVE 09/19/2016 10:28pm 09/19/2016 10:36pm Urine WBC 1-3 /HPF 0-5 09/19/2016 10:28pm 09/19/2016 10:41pm Urine RBC 0-1 /HPF 0-3 09/19/2016 10:28pm 09/19/2016 10:41pm Urine Squamous Epithelial Cells 0-5 09/19/2016 10:28pm 09/19/2016 10:41pm Urine Bacteria TRACE H NEGATIVE 09/19/2016 10:28pm 09/19/2016 10:41pm Urine Culture Indicated CULT NOT INDICATED 09/19/2016 10:28pm 09/19 10:41pm Procedures Procedure Status Date Provider(s) Chest x-ray 1 view frontal Completed 09/01/16 Ct angiography chest Completed 09/01/16 CTA CHEST Q&W/O - STAT Completed 09/01/16 Ct angio abdom w/o & w/dye Completed 09/01/16 Comprehen metabolic panel Completed 09/01/16 Assay of troponin quant Completed 09/01/16 Complete cbc w/auto diff wbc Completed 09/01/16 Electrocardiogram tracing Completed 09/01/16 Ther/proph/diag inj iv push Completed 09/01/16 Tx/pro/dx inj new drug addon Completed 09/01/16 Emergency dept visit Completed 09/01/16"INJECTION, ONDANSETRON HYDROCHLORIDE, PER 1 MG" Completed 09/01/16"INJECTION, FENTANYL CITRATE, 0.1 MG" Completed 09/01/16"INFUSION, NORMAL SALINE SOLUTION , 250 CC" Completed 09/01/16"LOW OSMOLAR CONTRAST MATERIAL, 300-399 MG/ML IODINE C Completed Esophagogastroduodenoscopy (EGD) with closed biopsy Completed 09/22/16 EVELYN FITZGERALD MD Encounters Encounter Location Arrival/Admit Date Discharge/Depart Date Attending Provider Discharged Inpatient [facility] 09/18/16 11:07pm 09/22/16 4:40pm ULISES ZUNIGA MD Departed Emergency Room [facility] 09/01/16 9:02am 09/01/16 12: 38pm CHICHO LORENZO DO
--- OUTSIDE RECORDS SUMMARY | 2016-09-29 06:34 | XMS REPORT | Continuity of Care Document ---
Author Author [facility] Organization [facility] Address Unknown Phone Unavailable Allergies [...] Procedures Code Description Performed By Performed On [id number] EXCISION OF DUODENUM, ENDO, DIAGN Yamile Cheng [...] PLATELET COUNT 427 k/cumm 150-400 [facility]OL[facility] 03:06 POTASSIUM 4.3 mmol/L [...] Status Pt. Type Provider Facility Loc./Unit Complaint [id number] 08/01/2015 16:19:00 2015 17:34:00 DIS Inpatient Cheng [facility] [id number] [id number] 08/08/2014 17:14:00 Document Registration
--- NOTE | 2016-09-29 06:50 | NUR ---
PROVIDER DR YOUSIF AT BEDSIDE
[2016-09-29] MEDS ORDERED: NORMAL SALINE 1,000 ML IV ONE (07:00)
[2016-09-29] MEDS ORDERED: ALBUTEROL/IPRATROPIUM INHAL. 2.5mg-0.5mg/3ml Neb. AEROSOL ONE (07:00)
--- NOTE | 2016-09-29 07:00 | ERPDOC ---
Departure Disposition Decision Date: Sep 29, 2016 Disposition Decision Time: 09:10 Disposition: 01 DISCHARGED HOME, SELF-CARE Impression Impression Impression: Primary Impression: COPD with acute exacerbation Additional Impression: Pneumonia Severity: Moderate Condition: Stable Seen By: Physician only Referrals: MARICRUZ LENTZ MD (Family) Problems/Meds/Labs Reviewed?: Yes Medications reviewed and manag: Yes Follow up care ordered?: Yes Mental Status: Alert, Oriented HPI - Dyspnea General Chief Complaint: Dyspnea/Respdistress Stated Complaint: DIFF BREATHING, UNABLE TO WALK Time Seen by Provider: 06:46 HPI - Dyspnea Initial Comments 61-year-old female, with respiratory distress. Patient was admitted with GI bleed approximately 18 days ago, also had shortness of breath at the time. She has a long-standing history of smoking, has been cutting down, but is still actively smoking. She's had no fever or chills. Does have a fullness in her stomach, upper abdomen and feels like there is a weight on her chest making it difficult to breathe. On initial presentation her oxygen sat was 91% on room air , but she felt acutely short of breath. She does have atrial fibrillation, blood thinner was stopped after the GI bleed this last month. She is now on oxygen, still feels short of breath. Allergies: Coded Allergies: Sulfa (Sulfonamide Antibiotics) (Verified Allergy, Unknown, UNKNOWN, ) THROAT SWELLING Uncoded Allergies: ZOMAX (Allergy, Unknown, HIVES, 02/27/15) Past History Past Medical History Metabolic: diabetes, hypertension Cardiac: A-fib, CAD, other Respiratory: COPD GI: IBS, other Female: UTI, pyelonephritis Musculoskeletal: osteoarthritis Psychological: anxiety, depression Surgical History General: appendix, gallbladder, other Reproductive/: D&C, hysterectomy Family History Family PMH: FOUND: CAD, cancer Vaccines Hx Influenza Vaccination: No Hx Pneumococcal Vaccination: No Social History Does patient use chewing tobac: No # of Packs/Tins per Day: 1 # of Years: 50 Substance Use Type: does not use Alcohol Intake: none Marital Status: Review of Systems Cardiovascular Cardiac: see HPI Rhythm/Rate: see HPI Pulmonary Respiratory: see HPI All other Systems All Other Systems: Reviewed and Negative Physical Exam General General Nourishment: adult, obese, acute distress Distress Description Patient is gulping for air. Vitals and Pain First Documented Vital Signs Date Time Temp Pulse Resp B/P Pulse Ox O2 Delivery O2 Flow Rate FiO2 09/29/16 06:33 98.6 90 24 153/72 91 Room Air Weight: Kilograms: 72.400 Height (feet): 5 Height (inches): 3.00 Triage Pain Scale: Normal Exams: Head: Normocephalic w/o trauma CV: Regular rate and rhythm, without murmur or gallop, Pulses 2+ all extremities, capillary refill, <2 seconds all ext., no pedal edema noted Abdomen: Bowel sounds positive, soft, non-tender, non-distended, no hepatosplenomegaly, masses or bruits noted Neurologic: Patient is alert, and oriented, cranial nerves, motor/sensory/ cerebellar, exams w/o gross deficits, to observation Psychiatric: Patient exhibits, appropriate attention, emotion and affect Respiratory (brief) Comments Minimal wheezing heard bilateral Differential Diagnoses Considering: Acute Bronchitis, Acute ID, Acute Respiratory Failure, CHF, COPD Exacerbation, Pneumonia, Pneumothorax, Pulmonary Edema, Pulmonary Embolus Progress Results/Orders Orders Procedure Category Date Status Time Cmp - Comprehensive LAB 09/29/16 Complete Metabolic 07:00 Blood Gas, Arterial - LAB 09/29/16 Complete ABG 07:00 Probnp LAB 09/29/16 Complete 07:00 Cbc W/Auto LAB 09/29/16 Complete Diff-Reflex Manual 07:00 D-Dimer LAB 09/29/16 Complete 07:00 INR LAB 09/29/16 Complete 07:00 Troponin I W LAB 09/29/16 Complete Hemolysis Index 07:00 EKG EKG 09/29/16 Taken 07:00 Chest, Pa & Lateral RAD 09/29/16 Resulted 07:00 Iv Lock (Ed Only) EDM 09/29/16 Transmitted 07:00 Normal Saline (Normal PHA 09/29/16 Complete Saline Iv) 07:00 Albuterol/Ipratropium PHA 09/29/16 Complete (Duoneb) 07:00 Oxygen Administration EDM 09/29/16 Transmitted 07:00 UA, LAB 09/29/16 Complete Dip&Micro(Complete) & 07:15 Ambulatory Oximetry RT 09/29/16 Transmitted Lab Results Laboratory Tests Test 09/29/16 07:15 09/29/16 08:00 White Blood Count 8.9T/MM3 Red Blood Count 3.36M/MM3 Hemoglobin 8.5GM/DL Hematocrit 29.1% Mean Corpuscular Volume 86.6UM3 Mean Corpuscular Hemoglobin 25.3UUG Mean Corpuscular Hemoglobin Concent 29.2GM/DL RDW Standard Deviation 53.4FL Platelet Count 412T/MM3 Mean Platelet Volume 10.5UM3 Immature Granulocyte % (Auto) 0.1% Neutrophils (%) (Auto) 76.7% Lymphocytes (%) (Auto) 13.0% Monocytes (%) (Auto) 8.2% Eosinophils (%) (Auto) 0.8% Basophils (%) (Auto) 1.2% Absolute Immature Granulocyte (auto 0.01T/MM3 Absolute Neutrophils (auto) 6.8T/MM3 Absolute Lymphocytes (auto) 1.2T/MM3 Absolute Monocytes (auto) 0.7T/MM3 Absolute Eosinophils (auto) 0.1T/MM3 Absolute Basophils (auto) 0.1T/MM3 Neutrophils % (Manual) 77.0% Band Neutrophils % 1.0% Lymphocytes % (Manual) 18.0% Monocytes % (Manual) 3.0% Eosinophils % (Manual) 1.0% Absolute Neutrophils (Manual) 6.9T/MM3 Band Neutrophils # 0.1T/MM3 Lymphocytes # (Manual) 1.6T/MM3 Monocytes # (Manual) 0.3T/MM3 Eosinophils # (Manual) 0.1T/MM3 Red Cell Morphology Comment Normal Prothromb Time International Ratio 1.23 D-Dimer 231NG/ML Urine Collection Type Voided-not cc-midstr Urine Color Yellow Urine Turbidity Clear Urine pH 7.0 Urine Specific [place] 1.010 Urine Protein Negative Urine Glucose (UA) Negative Urine Ketones Negative Urine Blood 1+ Urine Nitrite Negative Urine Bilirubin Negative Urine Urobilinogen 0.2EU/DL Urine Leukocyte Esterase Negative Urine RBC 0-1/HPF Urine WBC 0-1/HPF Urine Squamous Epithelial Cells 0-5 Urine Bacteria None seen Urine Culture Indicated Cult not indicated Turbidity < 20 Sodium Level 148MEQ/L Potassium Level 3.8MEQ/L Chloride Level 114MEQ/L Carbon Dioxide Level 21MEQ/L Anion Gap 13MEQ/L Blood Urea Nitrogen 10.0MG/DL Creatinine 0.7MG/DL Glomerular Filtration Rate Calc 85 BUN/Creatinine Ratio 14RATIO Glucose Level 91MG/DL Calculated Osmolality 283MOSM/KG Calcium Level 8.8MG/DL Total Bilirubin 1.60MG/DL Icterus Index < 2 Aspartate Amino Transf (AST/SGOT) 31U/L Alanine Aminotransferase (ALT/SGPT) 34U/L Alkaline Phosphatase 149U/L Troponin I < 0.012ng/ml HB-Huj-K-Type Natriuretic Peptide 1680PG/ML Total Protein 6.3G/DL Albumin 3.6G/DL Globulin 2.7G/DL Albumin/Globulin Ratio 1.3RATIO Chemistry Specimen Hemolysis < 15 Arterial Blood pH 7.420 Arterial Blood Partial Pressure CO2 37MMHG Arterial Blood pO2 at Patient Temp 64MMHG Arterial Blood HCO3 24MEQ/L Arterial Blood Total CO2 25.1MEQ/L Arterial Blood Oxygen Saturation 92.0% Arterial Blood Base Excess -0.2MMOL/L Oxygen Delivery Method (LAB) Simple mask, % Blood Gas Oxygen Liter Flow 1 Blood Gas Oxygen Percent Given Blood Gas Vent Rate Blood Gas Tidal Volume ML Medications Current ED Medications Sodium Chloride (Normal Saline IV) 1,000 ml @ 1,000 mls/hr Q1H ONCE IV Last administered on 09/29/16 07:18; Start 09/29/16 at 07:00; Stop 09/29/16 at 07:59 ; Status DC Albuterol/ Ipratropium (Duoneb) 3 ml O ONCE AEROSOL Last administered on 07:52; Start 09/29/16 at 07:00; Stop 09/29/16 at 07:02; Status DC Progress Progress Ambulatory oxygen sat 88%, patient is unable to discharge due to symptoms. Hematocrit is stable. Patient is of COPD symptoms with wheezing, pneumonia noted right lower lobe on x-ray. Hospitalist agreed to admit with Solu-Medrol 125 mg IV every 6 hours, Rocephin 1 g IV daily, IV fluid, respiratory treatments as needed, telemetry. LIBERTY YOUSIF MD Sep 29, 2016 07:00
[2016-09-29 07:20] LABS: BLOOD, URINE 1+ (NEGATIVE); COLOR,URINE YELLOW (YELLOW); HCT - HEMATOCRIT 29.1 % (36-46); HGB - HEMOGLOBIN 8.5 GM/DL (12-16); LEUKOCYTE ESTERASE ,URINE NEGATIVE (NEGATIVE); MEAN CORPUSCULAR HGB 25.3 UUG (26-34); MEAN CORPUSCULAR HGB CONC(MCHC 29.2 GM/DL (31-37); MEAN CORPUSCULAR VOLUME 86.6 UM3 (80-100); MEAN PLATELET VOLUME 10.5 UM3 (9.4-12.4); NITRITE,URINE NEGATIVE (NEGATIVE); RED BLOOD COUNT 3.36 M/MM3 (4.00-5.20); UROBILINOGEN,URINE 0.2 EU/DL (NORMAL); WBC - WHITE BLOOD COUNT 8.9 T/MM3 (4.5-11.0)
--- NOTE | 2016-09-29 07:20 | NUR ---
IV IVF INFUSING ORDERED
[2016-09-29 07:23] LABS: BASOPHILS # (AUTO) 0.1 T/MM3 (0-0.2); BASOPHILS % (AUTO) 1.2 % (0-2); EOSINOPHILS # (AUTO) 0.1 T/MM3 (0-0.5); EOSINOPHILS % (AUTO) 0.8 % (0-4); IMMATURE GRANULOCYTE # (AUTO) 0.01 T/MM3 (0.00-0.03); IMMATURE GRANULOCYTE % (AUTO) 0.1 % (0.0-0.5); LYMPHOCYTES # (AUTO) 1.2 T/MM3 (1-4.8); MONOCYTES # (AUTO) 0.7 T/MM3 (0-0.8); MONOCYTES % (AUTO) 8.2 % (0-9.0); NEUTROPHILS #(AUTO)-ABSOLUTE 6.8 T/MM3 (1.8-7.7); NEUTROPHILS % (AUTO) 76.7 % (33-66)
--- NOTE | 2016-09-29 07:24 | NUR ---
EKG EKG TAKEN AND GIVEN TO DR YOUSIF
[2016-09-29 07:26] LABS: INR 1.23 (0.76-1.04); PROTHROMBIN TIME 13.4 SEC (9.31-12.49)
[2016-09-29 07:30] LABS: ALBUMIN 3.6 G/DL (3.5-5.0); ALBUMIN/GLOBULIN RATIO 1.3 RATIO (1.1-2.2); ALKALINE PHOSPHATASE 149 U/L (38-126); ALT (SGPT) 34 U/L (9-52); ANION GAP 13 MEQ/L (5-15); AST (SGOT) 31 U/L (14-36); BUN/CREATININE RATIO 14 RATIO (6-26); CALCIUM 8.8 MG/DL (8.4-10.2); CHLORIDE 114 MEQ/L (98-107); CO2 - CARBON DIOXIDE 21 MEQ/L (22-30); CREATININE 0.7 MG/DL (0.7-1.2); GLOMERULAR FILTRATION RATE 85; GLUCOSE 91 MG/DL (65-110); POTASSIUM 3.8 MEQ/L (3.6-5); SODIUM 148 MEQ/L (134-144); TOTAL PROTEIN 6.3 G/DL (6.3-8.2)
[2016-09-29] MEDS ORDERED: PANT40TA27 PO (07:38)
[2016-09-29 07:41] LABS: BACTERIA,URINE NONE SEEN (NEGATIVE); RBC,URINE 0-1 /HPF (0-3); SQUAMOUS EPITHELIAL CELL,UR 0-5; WBC,URINE 0-1 /HPF (0-5)
[2016-09-29 07:42] LABS: PROBNP 1680 PG/ML (0-175)
[2016-09-29 07:55] LABS: BAND NEUTROPHILS # 0.1 T/MM3; EOSINOPHILS # (MANUAL) 0.1 T/MM3 (0-0.5); LYMPHOCYTES # (MANUAL) 1.6 T/MM3 (1-4.8); MONOCYTES # (MANUAL) 0.3 T/MM3 (0-0.8); NEUTROPHILS #(MANUAL)-ABSOLUTE 6.9 T/MM3 (1.8-7.7); TOTAL CELLS COUNTED 100 %
--- NOTE | 2016-09-29 08:30 | NUR ---
IVF IVF INFUSED AT THIS TIME
--- NOTE | 2016-09-29 08:38 | DI ---
Indication: ITS.REASON: dyspnea Procedure: CHEST, PA LATERAL: Encounter: Initial Comparison: Pulmonary CT angiogram and chest radiograph 09/01/2016 Technique: PA and lateral radiographs of the chest were obtained. Findings: Lungs and airways: Normal lung volumes. New patchy right lower lobe airspace consolidation. Normal pulmonary vasculature. Pleura: No pleural effusion or pneumothorax. Heart and mediastinum: Aortic atherosclerosis. The heart appears normal in size. Osseous structures and soft tissues: No acute osseous abnormality is seen. Degenerative arthrosis of the AC joints. Degenerative disc disease of the thoracic spine. Impression: New patchy right lower lobe airspace consolidation which could reflect developing pneumonia in the appropriate clinical setting. .
--- OUTSIDE RECORDS SUMMARY | 2016-09-29 09:01 | XMS REPORT | Continuity of Care Document ---
[...] Procedures Code Description Performed By Performed On [id number] EXCISION OF DUODENUM, ENDO, DIAGN Yamile Cheng [...] PLATELET COUNT 427 k/cumm 150-400 [facility] 03:06 POTASSIUM 4.3 mmol/L [...] Status Pt. Type Provider Facility Loc./Unit Complaint [id number] 08/01/2015 16:19:00 2015 17:34:00 DIS Inpatient [facility] W.3TN [id number] 08/08/2014 17:14:00 Document Registration
--- NOTE | 2016-09-29 09:25 | NUR ---
ACTIVITY AMBULATED PT ON ROOM AIR IN FUNG. INITIAL SPO2 96% ON 1L/NC. WHILE WALKING IN FUNG PT HAD INCREASED SOA AND DROPPED TO 88%. PT BACK TO ROOM AND GASPING FOR AIR
--- OUTSIDE RECORDS SUMMARY | 2016-09-29 09:39 | XMS REPORT | Continuity of Care Document ---
Author Author [facility] Organization [facility] Address Unknown Phone Unavailable Allergies Active Description [...] Procedures Code Description Performed By Performed On [id number] EXCISION OF DUODENUM, ENDO, DIAGN Yamile Cheng [...] PLATELET COUNT 427 k/cumm 150-400 [facility] 03:06 POTASSIUM 4.3 mmol/L [...] Status Pt. Type Provider Facility Loc./Unit Complaint [id number] 08/01/2015 16:19:00 2015 17:34:[address] [facility] W.3TN [id number] 08/08/2014 17:14:00 Document Registration
--- NOTE | 2016-09-29 09:40 | NUR ---
REPORT REPORT TO [facility]
--- NOTE | 2016-09-29 10:05 | NUR ---
Arrival Patient arrived on unit via wheelchair from ED. Patient moved self from wheelchair to bed with minimal assistance. On 1L NC, increased to 2L for comfort. Patient oriented to unit. Will continue to monitor.
--- NOTE | 2016-09-29 10:05 | NUR ---
ADMIT PT TO ROOM 137 PER WC WITH O2 IN PLACE
[2016-09-29] MEDS: CEFTRIAXONE I.V. (ER USE ONLY) 1 G in NORMAL SALINE 100 ML IV SCH ×2 (10:38→10:40)
--- NOTE | 2016-09-29 10:51 | HPPDOC ---
JALIL HIRSCH V TALENT ACQUISITION SOURCER 09/29/16 1019: HPI - Adult Date DATE: 09/29/16 TIME: 10:07 General History of Present Illness Angélica is a 61 year old woman who lives at home with her . She was recently a patient at [facility] on 09/22 for a GI bleed. At that time she had an EGD by Dr. Man which revealed mild gastritis with small ulceration to the gastric antrum and mild duodenitis. A biopsy was taken that was negative for H. pylori. She was dismissed on Carafate and Prilosec. Today she presented to the ED with complaint of shortness of breath with exertion and rest. She reports that this has been going on for approximately one week. She reports that she does have two inhalers at home, she is unsure of their name or who prescribed them. She does not use them very often. She denies having to use oxygen at home. She is a smoker of 1 pack per day for approximately 50 years. She also smokes 1/4 bag of marijuana per week for pain control and insomnia. She also reports that she has been having intermittent chest pain for "months". Her eyeglass maker is Dr. Gurrola and she has an appointment to see him in 2 weeks. He was consulted and saw her when she was hospitalized last week. Her labs include: Hgb 8.5 with her last hgb was 8.1 on 09/22, HCT: 29.1, PLT: 412, Na : 148, CO2: 21, alkaline phos: 149, BNP: 1680, Troponin: <0.012, UA +1 RBC otherwise unremarkable and respiratory panel pending. Her ABGs on 1L per nasal cannula: pH: 7.4, PCo2: 37, pO2: 64, HCO3: 24, Total CO2: 25.1 and O2 sat: 92. Her Vitals upon exam are: 164/70, HR 77, R: 25, and 93% on 3L per nasal cannula. She denies fevers, chills, nausea or vomiting. She was 91% on RA in the ED, with ambulation her SpO2 ranged anywhere from 88-90% with shortness of air. A CXR demonstrates a patchy right lower lobe consolidation with possible pneumonia. Due to clinical presentation and CXR results the hospitalist team was contacted for admission. She is a full code. Past Medical History Past Medical History History of atrial fibrillation Carotid artery aneursym s/p stent placement Cerebral aneurysm repair- 2015 Infrarenal vascular aneurysm (08/2016) IBS Hypothyroidism HLD HTN Chronic pain H/o anemia Depression Surgical History Patient's Surgical History: Hysterectomy Cholecystectomy Appendectomy Cerebral aneurysm repair Cardiac catheter-08/2011 Current Medications Home Meds Active Scripts Cyanocobalamin (Vitamin B-12) (Vitamin B-12) 1,000 Mcg Tablet, 1 TAB PO DAILY, # 30 TAB 2 Refills Prov:JONNY JOSÉ MD 09/22/16 Folic Acid (Folic Acid) 1 Mg Tablet, 1 MG PO DAILY, #60 TAB Prov:JONNY JOSÉ MD 09/22/16 Sucralfate (Carafate) 1 Gm Tablet, 1 G PO ACHS for gastritis for 30 Days, TAB Prov:JONNY JOSÉ MD 09/22/16 Omeprazole (Omeprazole) 20 Mg Capsule.dr, 20 MG PO ACBID, #60 CAP Take twice daily for 10 days and then once daily for 6 weeks Prov:JONNY JOSÉ MD 09/22/16 Ferrous Sulfate (Ferrous Sulfate) 324 Mg Tablet.dr, 324 MG PO WB for anemia, # 100 TAB Prov:JONNY JOSÉ MD 09/22/16 Nicotine (Nicotine Patch 14 mg/24 hr) 1 Each Patch.td24, 14 MG TD DAILY for 14 Days Prov:JONNY JOSÉ MD 09/22/16 Ondansetron (Zofran Odt) 4 Mg Tab.rapdis, 4 MG PO Q4HR Y for NAUSEA &/OR VOMITING for 3 Days, #18 TAB 0 Refills Prov:CHICHO LORENZO DO 09/01/16 Sotalol HCl (Betapace) 80 Mg Tablet, 40 MG PO ACBID, #60 TAB Prov:PURVI ELIZABETH APRN 02/28/15 Reported Medications Pantoprazole Sodium (Pantoprazole Sodium) 40 Mg Tablet.dr, 40 MG PO ACBID, TAB Take 1 tablet, by mouth, 2 times a day, before breakfast and dinner. 09/29/16 Hyoscyamine (Levbid) 0.375 Mg Tablet, 1 TAB PO BID, #60 TAB 2 Refills 09/19/16 Hydrocodone/Apap ([place] 5-325 Tablet) 5-325 Tablet, 1 TAB PO Q4-6HPRN 09/01/16 Levothyroxine Sodium (Levothyroxine Sodium) 100 Mcg Tablet, 100 MCG PO QD 09/01/16 Atorvastatin Calcium (Atorvastatin Calcium) 40 Mg Tablet, 1 TAB PO HS, TAB 02/27/15 Gabapentin (Gabapentin) 100 Mg Capsule, 1 CAP PO DAILY, CAP 02/27/15 Escitalopram Oxalate (Escitalopram Oxalate) 20 Mg Tablet, 1 TAB PO DAILY, TAB 02/27/15 Discontinued Reported Medications Apixaban (Eliquis) 5 Mg Tablet, PO DAILY 09/19/16 Isosorbide Mononitrate (Isosorbide Mononitrate ER) 30 Mg Tab.er.24h, 1 TAB PO DAILY, #30 TAB 09/19/16 Potassium Chloride (Potassium Chloride) 20 Meq Tab.er.prt, 20 MEQ PO QD 09/01/16 Furosemide (Furosemide) 20 Mg Tablet, 20 MG PO QD 09/01/16 Aspirin (Aspirin) 325 Mg Tablet, 325 MG PO DAILY, TAB 02/27/15 Discontinued Scripts Oxycodone HCl/Acetaminophen (Percocet 5-325 mg Tablet) 5-325 Tablet, 1 TAB PO Q4HR Y for PAIN for 3 Days, #18 TAB 0 Refills Prov:CHICHO LORENZO Araceli DO 09/01/16 Allergies: Coded Allergies: Sulfa (Sulfonamide Antibiotics) (Verified Allergy, Unknown, UNKNOWN, ) THROAT SWELLING Uncoded Allergies: ZOMAX (Allergy, Unknown, HIVES, 02/27/15) Family History Family History: unknkown by patient Social History Smoking Status: Current every day smoker Does patient use chewing tobac: No # of Packs/Tins per Day: 1 # of Years: 50 Substance Use Type: marijuana (1/4 bag per week) Alcohol Intake: none Marital Status: Advance Directives: Yes Full Code Social History Comments PCP Dr Richmond Cardiology Dr. Gurrola Review of Systems Constitutional: REPORTS: difficulty falling asleep Cardiovascular chest pain (intermittent), dyspnea on exertion Pulmonary Respiratory: dyspnea (with rest and extertion) Musculoskeletal General: weakness Hematologic/Lymphatic anemia Physical Exam General General Nourishment: well nourished, obese Vital Signs Vital Signs Date Time Temp Pulse Resp B/P Pulse Ox O2 Delivery O2 Flow Rate FiO2 09/29/16 09:56 98.6 78 35 164/70 90 Room Air Height (Feet): 5 Height (Inches): 3.00 Telemetry Rhythm: Sinus Rhythm Eyes Brief: FOUND: EOMI Respiratory Brief: FOUND: equal bilaterally (diminshed), wheezes (inspiratory) Cardiovascular (brief) Cardiac Brief: FOUND: regular rate, regular rhythm Abdomen (brief) Abdominal Brief: FOUND: BS normo active x4, soft Integumentary (brief) Integumentary Brief: FOUND: dry, pink, warm Neurologic RN Documented GCS Eye Opening: Verbal: Motor: Total: Psychiatric (brief) FOUND: alert, normal affect, oriented Laboratory Laboratory Tests Test 09/29/16 07:15 09/29/16 08:00 09/29/16 09:29 White Blood Count 8.9T/MM3 Red Blood Count 3.36M/MM3 Hemoglobin 8.5GM/DL Hematocrit 29.1% Mean Corpuscular Volume 86.6UM3 Mean Corpuscular Hemoglobin 25.3UUG Mean Corpuscular Hemoglobin Concent 29.2GM/DL RDW Standard Deviation 53.4FL Platelet Count 412T/MM3 Mean Platelet Volume 10.5UM3 Immature Granulocyte % (Auto) 0.1% Neutrophils (%) (Auto) 76.7% Lymphocytes (%) (Auto) 13.0% Monocytes (%) (Auto) 8.2% Eosinophils (%) (Auto) 0.8% Basophils (%) (Auto) 1.2% Absolute Immature Granulocyte (auto 0.01T/MM3 Absolute Neutrophils (auto) 6.8T/MM3 Absolute Lymphocytes (auto) 1.2T/MM3 Absolute Monocytes (auto) 0.7T/MM3 Absolute Eosinophils (auto) 0.1T/MM3 Absolute Basophils (auto) 0.1T/MM3 Neutrophils % (Manual) 77.0% Band Neutrophils % 1.0% Lymphocytes % (Manual) 18.0% Monocytes % (Manual) 3.0% Eosinophils % (Manual) 1.0% Absolute Neutrophils (Manual) 6.9T/MM3 Band Neutrophils # 0.1T/MM3 Lymphocytes # (Manual) 1.6T/MM3 Monocytes # (Manual) 0.3T/MM3 Eosinophils # (Manual) 0.1T/MM3 Red Cell Morphology Comment Normal Prothromb Time International Ratio 1.23 D-Dimer 231NG/ML Urine Collection Type Voided-not cc-midstr Urine Color Yellow Urine Turbidity Clear Urine pH 7.0 Urine Specific [place] 1.010 Urine Protein Negative Urine Glucose (UA) Negative Urine Ketones Negative Urine Blood 1+ Urine Nitrite Negative Urine Bilirubin Negative Urine Urobilinogen 0.2EU/DL Urine Leukocyte Esterase Negative Urine RBC 0-1/HPF Urine WBC 0-1/HPF Urine Squamous Epithelial Cells 0-5 Urine Bacteria None seen Urine Culture Indicated Cult not indicated Turbidity < 20 Sodium Level 148MEQ/L Potassium Level 3.8MEQ/L Chloride Level 114MEQ/L Carbon Dioxide Level 21MEQ/L Anion Gap 13MEQ/L Blood Urea Nitrogen 10.0MG/DL Creatinine 0.7MG/DL Glomerular Filtration Rate Calc 85 BUN/Creatinine Ratio 14RATIO Glucose Level 91MG/DL Calculated Osmolality 283MOSM/KG Calcium Level 8.8MG/DL Total Bilirubin 1.60MG/DL Icterus Index < 2 Aspartate Amino Transf (AST/SGOT) 31U/L Alanine Aminotransferase (ALT/SGPT) 34U/L Alkaline Phosphatase 149U/L Troponin I < 0.012ng/ml PL-Ern-S-Type Natriuretic Peptide 1680PG/ML Total Protein 6.3G/DL Albumin 3.6G/DL Globulin 2.7G/DL Albumin/Globulin Ratio 1.3RATIO Chemistry Specimen Hemolysis < 15 Arterial Blood pH 7.420 Arterial Blood Partial Pressure CO2 37MMHG Arterial Blood pO2 at Patient Temp 64MMHG Arterial Blood HCO3 24MEQ/L Arterial Blood Total CO2 25.1MEQ/L Arterial Blood Oxygen Saturation 92.0% Arterial Blood Base Excess -0.2MMOL/L Oxygen Delivery Method (LAB) Simple mask, % Blood Gas Oxygen Liter Flow 1 Blood Gas Oxygen Percent Given Blood Gas Vent Rate Blood Gas Tidal Volume ML Assessment & Plan Problems: (1) COPD with acute exacerbation Status: Acute (2) Hypernatremia Status: Acute Assessment & Plan: Present on admission, sodium 148 (3) Elevated bilirubin Status: Acute Assessment & Plan: Acute present on admission, bilirubin up to 1.6. (Baseline 0.6) (4) Atherosclerotic heart disease of [place] coronary artery without angina pectoris Status: Chronic (5) Atrial fibrillation Status: Chronic (6) Essential (primary) hypertension Status: Chronic (7) Mixed hyperlipidemia Status: Chronic (8) History of anemia Status: Chronic (9) IBS (irritable bowel syndrome) Status: Chronic (10) Hypothyroidism Status: Chronic (11) Chronic pain Status: Chronic (12) Depression Status: Chronic (13) Cigarette nicotine dependence, uncomplicated Status: Chronic (14) History of GI bleed Status: Resolved Assessment & Plan: September 18, 2016- chronic anticoagulation (Eliquis) stopped at that time (15) Marijuana use Status: Chronic Assessment & Plan: Daily use (16) Hx of cerebral aneurysm repair Status: Resolved Assessment Admit patient to outpatient observation under the care of Dr. Goldstein for COPD exacerbation Respiratory panel obtained on admission and was all negative. Due to her COPD exacerbation with possible pneumonia we will give her Rocephin 1gm and azithromycin 500 IV daily. Solu-Medrol 125mg IV every 6 hours for pulmonary inflammation Additionally we will add Pulmicort breathing treatments twice daily with Duoneb breathing treatments four times daily. We will try and wean her oxygen as able, she is currently on 2 L per nasal cannula. Her vitals are currently stable. Place on telemetry for history of atrial fibrillation and increased oxygen demands. Continue Sotalol 40mg twice daily. Patient reports that her stomach symptoms have resolved since her last admission here at [facility] last week and since taking her medications. Nursing reports that the patient did report non-compliance with her new GI medications. We will continue her [id number] before meals and at bedtime, Levsin 0.375mg twice daily, Prilosec 20 before meals twice daily, Vitamin B-12 1,000 mcg daily , folic acid 1mg daily and Ferrous Sulfate 324mg daily that was prescribed upon dismissal last week. Continue Lipitor, Lexapro,and levothyroxine. For chronic pain control we will continue her Gabapentin 100mg daily and [place] 5 /325mg every 4 to 6 hours as needed for pain Encouraged tobacco and marijuana cessation. Nicotine patch daily as needed. With recent GI bleed we will add SCDs for DVT prophylaxis. Will discuss further plan of care with attending, Dr. Goldstein. At time of discharge medical care will return to primary care provider, Dr. Richmond DVT Prophylaxis: SCD'S Code Status Full Code Hospital Course Summary Disclaimer The hospital course summary below is not to be considered part of the above Progress Note. Hospital Course Summary Admit patient to outpatient observation under the care of Dr. Goldstein for COPD exacerbation Respiratory panel obtained on admission and was all negative. Due to her COPD exacerbation with possible pneumonia we will give her Rocephin 1gm and azithromycin 500 IV daily. Solu-Medrol 125mg IV every 6 hours for pulmonary inflammation Additionally we will add Pulmicort breathing treatments twice daily with Duoneb breathing treatments four times daily. We will try and wean her oxygen as able, she is currently on 2 L per nasal cannula. Her vitals are currently stable. Place on telemetry for history of atrial fibrillation and increased oxygen demands. Continue Sotalol 40mg twice daily. Patient reports that her stomach symptoms have resolved since her last admission here at [facility] last week and since taking her medications. Nursing reports that the patient did report non-compliance with her new GI medications. We will continue her [id number] before meals and at bedtime, Levsin 0.375mg twice daily, Prilosec 20 before meals twice daily, Vitamin B-12 1,000 mcg daily , folic acid 1mg daily and Ferrous Sulfate 324mg daily that was prescribed upon dismissal last week. Continue Lipitor, Lexapro,and levothyroxine. For chronic pain control we will continue her Gabapentin 100mg daily and [place] 5 /325mg every 4 to 6 hours as needed for pain Encouraged tobacco and marijuana cessation. Nicotine patch daily as needed. With recent GI bleed we will add SCDs for DVT prophylaxis. Will discuss further plan of care with attending, Dr. Goldstein. At time of discharge medical care will return to primary care provider, GUSTABO Bill MD 09/29/16 6657: Past Medical History Current Medications Home Meds Active Scripts Cyanocobalamin (Vitamin B-12) (Vitamin B-12) 1,000 Mcg Tablet, 1 TAB PO DAILY, # 30 TAB 2 Refills Prov:JONNY JOSÉ MD 09/22/16 Folic Acid (Folic Acid) 1 Mg Tablet, 1 MG PO DAILY, #60 TAB Prov:JONNY JOSÉ MD 09/22/16 Sucralfate (Carafate) 1 Gm Tablet, 1 G PO ACHS for gastritis for 30 Days, TAB Prov:JONNY JOSÉ MD 09/22/16 Omeprazole (Omeprazole) 20 Mg Capsule.dr, 20 MG PO ACBID, #60 CAP Take twice daily for 10 days and then once daily for 6 weeks Prov:JONNY JOSÉ MD 09/22/16 Ferrous Sulfate (Ferrous Sulfate) 324 Mg Tablet., 324 MG PO WB for anemia, # 100 TAB Prov:JONNY JOSÉ MD 09/22/16 Nicotine (Nicotine Patch 14 mg/24 hr) 1 Each Patch.td24, 14 MG TD DAILY for 14 Days Prov:JONNY JOSÉ MD 09/22/16 Ondansetron (Zofran Odt) 4 Mg Tab.rapdis, 4 MG PO Q4HR Y for NAUSEA &/OR VOMITING for 3 Days, #18 TAB 0 Refills Prov:CHICHO LORENZO DO 09/01/16 Sotalol HCl (Betapace) 80 Mg Tablet, 40 MG PO ACBID, #60 TAB Prov:PURVI ELIZABETH TALENT ACQUISITION SOURCER 02/28/15 Reported Medications Pantoprazole Sodium (Pantoprazole Sodium) 40 Mg Tablet., 40 MG PO ACBID, TAB Take 1 tablet, by mouth, 2 times a day, before breakfast and dinner. 09/29/16 Hyoscyamine (Levbid) 0.375 Mg Tablet, 1 TAB PO BID, #60 TAB 2 Refills 09/19/16 Hydrocodone/Apap ([place] 5-325 Tablet) 5-325 Tablet, 1 TAB PO Q4-6HPRN 09/01/16 Levothyroxine Sodium (Levothyroxine Sodium) 100 Mcg Tablet, 100 MCG PO QD 09/01/16 Atorvastatin Calcium (Atorvastatin Calcium) 40 Mg Tablet, 1 TAB PO HS, TAB 02/27/15 Gabapentin (Gabapentin) 100 Mg Capsule, 1 CAP PO DAILY, CAP 02/27/15 Escitalopram Oxalate (Escitalopram Oxalate) 20 Mg Tablet, 1 TAB PO DAILY, TAB 02/27/15 Discontinued Reported Medications Apixaban (Eliquis) 5 Mg Tablet, PO DAILY 09/19/16 Isosorbide Mononitrate (Isosorbide Mononitrate ER) 30 Mg Tab.er.24h, 1 TAB PO DAILY, #30 TAB 09/19/16 Potassium Chloride (Potassium Chloride) 20 Meq Tab.er.prt, 20 MEQ PO QD 3/15/17 Furosemide (Furosemide) 20 Mg Tablet, 20 MG PO QD 09/01/16 Aspirin (Aspirin) 325 Mg Tablet, 325 MG PO DAILY, TAB 02/27/15 Discontinued Scripts Oxycodone HCl/Acetaminophen (Percocet 5-325 mg Tablet) 5-325 Tablet, 1 TAB PO Q4HR Y for PAIN for 3 Days, #18 TAB 0 Refills Prov:CHICHO LORENZO DO 09/01/16 Allergies: Coded Allergies: Sulfa (Sulfonamide Antibiotics) (Verified Allergy, Unknown, UNKNOWN, ) THROAT SWELLING Uncoded Allergies: ZOMAX (Allergy, Unknown, HIVES, 02/27/15) Assessment & Plan Plan/Intensity of Service Have independently interviewed and examined pt. Chart reviewed. Case discussed with ED physician and my TALENT ACQUISITION SOURCER. Care plan developed with my supervision; agree with above. Increasing SOA over past 3-4 days. More winded with activities. Not having increased cough or sputum production. Not feeling more congested to chest. Notes chest wall pains off and on. Appetite decreased over last 2 days. More tired and fatigued. Still smoking. No recent trauma. Lungs: decreased, very minimal air movement. Not appreciating wheezing due to lack of air movement. Breaths comfortable on RA. CV: regular AB: soft nt/nd BS decreased MSE: awake alert appropriate Plan: OBS, Rocephin/azithromycin for antimicrobial coverage, Solu-medrol 125mg IVF q 6 hours to decrease pulmonary inflammation, Neb treatments, Mucinex and acapella, supplemental O2-weaning as able, RT for tobacco cessation, scd for DVT prevention, continue home medications, monitor lab. JALIL HIRSCH APRN Sep 29, 2016 10:19 GUSTABO GOLDSTEIN MD Sep 29, 2016 13:07
[2016-09-29] MEDS: ALBUTEROL/IPRATROPIUM INHAL. 2.5mg-0.5mg/3ml Neb. AEROSOL SCH ×3 (11:10→19:44)
[2016-09-29] MEDS ORDERED: MENTHOL COUGH DROPS (RICOLA) MM PRN (11:15)
[2016-09-29] MEDS ORDERED: HYDROMORPHONE 2mg/ml INJECTION IV PRN (11:15)
[2016-09-29] MEDS: GUAIFENESIN DM 600mg/30mg TABLET PO SCH ×2 (12:15→20:56)
[2016-09-29] MEDS: SUCRALFATE 1 G TABLET PO SCH ×3 (12:15→20:56)
[2016-09-29] MEDS ORDERED: SOTALOL 80 MG TABLET PO ONE (12:15)
[2016-09-29] MEDS: AZITHROMYCIN 500 MG in NORMAL SALINE 250 ML IV SCH (12:15)
--- NOTE | 2016-09-29 15:00 | NUR ---
A-fib, Notified Patient has been in-and-out of a-fib and sinus rhythm with elevated heart rate between up to 130 from approx. [id number]. Dr. Goldstein notified at 1425. Patient is asymptomatic, resting in bed comfortably during that time. No further orders from Dr. Goldstein. At this time, patient has converted back to sinus rhythm but still changes back to a-fib with tachycardia for short periods. Will continue to monitor.
[2016-09-29] MEDS: PANTOPRAZOLE 40 MG TABLET PO SCH (17:42)
[2016-09-29] MEDS: SOTALOL 80 MG TABLET PO SCH (17:42)
--- NOTE | 2016-09-29 18:06 | NUR ---
Shift Summary Patient alert and oriented x3 this shift. Elevated BP on admission, returned to normal limits after one dose sotalol. On 2l NC. Significant SOA with exertion. Up with standby assist in room. SCD's in place. Patient up to bathroom twice since arrival, no BM. Patient has slept most of the time between cares, awakens easily. IVL right forearm, flushes well. Patient calm and cooperative with cares. present at beside.
[2016-09-29] MEDS: HYOSCYAMINE 0.375 MG PO SCH (20:56)
[2016-09-29] MEDS ORDERED: BUDESONIDE INH.SOLN. 0.5mg/2ml NEB AEROSOL SCH (21:00)
[2016-09-29] MEDS ORDERED: ATORVASTATIN 40 MG TABLET PO SCH (22:00)
[2016-09-30] VITALS: BP 138/70; PULSE 70; RESP 18; TEMP 97.9; O2SAT 99
[2016-09-30 05:17] LABS: HCT - HEMATOCRIT 28.7 % (36-46); HGB - HEMOGLOBIN 8.6 GM/DL (12-16); MEAN CORPUSCULAR HGB 25.4 UUG (26-34); MEAN CORPUSCULAR VOLUME 84.9 UM3 (80-100); MEAN PLATELET VOLUME 11.1 UM3 (9.4-12.4); RED BLOOD COUNT 3.38 M/MM3 (4.00-5.20); WBC - WHITE BLOOD COUNT 5.7 T/MM3 (4.5-11.0)
[2016-09-30 05:24] LABS: ANION GAP 10 MEQ/L (5-15); BUN/CREATININE RATIO 24 RATIO (6-26); CALCIUM 8.9 MG/DL (8.4-10.2); CHLORIDE 112 MEQ/L (98-107); CO2 - CARBON DIOXIDE 24 MEQ/L (22-30); CREATININE 0.7 MG/DL (0.7-1.2); GLOMERULAR FILTRATION RATE 85; GLUCOSE 155 MG/DL (65-110); POTASSIUM 4.6 MEQ/L (3.6-5); SODIUM 146 MEQ/L (134-144)
--- NOTE | 2016-09-30 05:59 | NUR ---
SUMMARY PT ALERT AND ORIENTED, VSS, DENIES PAIN, DENIES SOA. STAND BY ASSIST TO AMBULATE. PT RESTED WELL. NO PROBLEMS TO NOTE.
[2016-09-30 06:23] LABS: BAND NEUTROPHILS # 0.1 T/MM3; BASOPHILS # (MANUAL) 0.1 T/MM3 (0-0.2); LYMPHOCYTES # (MANUAL) 0.8 T/MM3 (1-4.8); NEUTROPHILS #(MANUAL)-ABSOLUTE 4.8 T/MM3 (1.8-7.7); NUCLEATED RED BLOOD CELLS 1; TOTAL CELLS COUNTED 100 %
[2016-09-30 06:25] LABS: HYPOCHROMASIA 1+; POIKILOCYTOSIS 1+
[2016-09-30] MEDS: PANTOPRAZOLE 40 MG TABLET PO SCH (06:28)
[2016-09-30] MEDS: SOTALOL 80 MG TABLET PO SCH (06:28)
[2016-09-30] MEDS: SUCRALFATE 1 G TABLET PO SCH ×2 (06:29→13:01)
[2016-09-30] MEDS ORDERED: LEVOTHYROXINE 100 MCG TABLET PO SCH (06:30)
[2016-09-30 08:00] VITALS: BP 143/82; PULSE 64; RESP 20; TEMP 97.8; O2SAT 100
[2016-09-30] MEDS ORDERED: FERROUS SULFATE 324 MG TABLET PO SCH (08:00)
--- NOTE | 2016-09-30 08:00 | NUR ---
RECEIVED REPORT PATIENT IS ALERT AND ORIENTED. DENIES PAIN THIS MORNING. ON 2L NC O2 THIS MORNING. NO DISTRESS NOTED
[2016-09-30] MEDS: HYOSCYAMINE 0.375 MG PO SCH (08:35)
[2016-09-30] MEDS: GUAIFENESIN DM 600mg/30mg TABLET PO SCH (08:36)
[2016-09-30] MEDS: CEFTRIAXONE I.V. (ER USE ONLY) 1 G in NORMAL SALINE 100 ML IV SCH (08:40)
[2016-09-30] MEDS ORDERED: NICOTINE 14 MG PATCH TD SCH (09:00)
[2016-09-30] MEDS ORDERED: NICOTINE PATCH REMOVAL TD SCH (09:00)
[2016-09-30] MEDS ORDERED: FOLIC ACID 1 MG TABLET PO SCH (09:00)
[2016-09-30] MEDS ORDERED: CYANOCOBALAMIN (B-12) 500mcg TABLET PO SCH (09:00)
[2016-09-30] MEDS ORDERED: GABAPENTIN 100 MG CAPSULE PO SCH (09:00)
[2016-09-30] MEDS ORDERED: ESCITALOPRAM 20 MG TABLET PO SCH (09:00)
[2016-09-30] MEDS: AZITHROMYCIN 500 MG in NORMAL SALINE 250 ML IV SCH (10:06)
--- NOTE | 2016-09-30 10:06 | NUR ---
CM CM VISITED PT. CM EXPLAINED ROLE AND PROVIDED CONTACT INFORMATION. PT IS HOPING TO RETURN HOME TODAY. PT DENIES NEEDS. PT IS AWARE TO CONTACT CM IF NEEDS ARISE.
[2016-09-30 10:22] VITALS: O2SAT 97
--- NOTE | 2016-09-30 10:43 | PNPDOC ---
Subjective Date DATE: 09/30/16 TIME: 10:36 Subjective F/U: COPD with acute exacerbation Doing much better today. Breathing easier-much less SOA. Not having cough/ congestion. No pain with breathing. Not having chest pressure or pain. Denies nausea or ab pain. Moving better. Objective Vital Signs Vital signs Vital Signs Date Time Temp Pulse Resp B/P Pulse Ox O2 Delivery O2 Flow Rate FiO2 09/30/16 10:22 97 Room Air 09/30/16 08:00 97.8 64 20 143/82 1.00 Telemetry Rhythm: Sinus Rhythm Height (Feet): 5 Height (Inches): 3.00 Weight (Kilograms): 76.800 General General Appearance: Alert, Obese, Orientated x 3, Well Nourished, Well Developed, Cooperative, No Acute Distress, Looks Stated Age Eyes (Brief) Eyes: FOUND: EOMI, PERRL, NOT FOUND: scleral icterus ENMT (Brief) ENMT: FOUND: mucosa moist (No oral thursh ) Neck (Brief) Neck: FOUND: midline, NOT FOUND: nuchal rigidity, spasm Respiratory (Brief) Respiratory: FOUND: clear all snow (Decreased bilaterally ), equal bilaterally, other (No distress on RA. No conversational dyspnea. ), NOT FOUND: rales, wheezes Cardiovascular (Brief) Cardiac: FOUND: regular rate, regular rhythm, NOT FOUND: pedal edema Abdomen (Brief) Abdominal: FOUND: BS normo active x4, soft, NOT FOUND: distended, tender Extremities (Brief) Extremity : Side: Bilateral Extremity: leg Extremity Finding: NOT FOUND: edema Musculoskeletal (Brief) Musculoskeletal: FOUND: extremities move equally, NOT FOUND: deformity, loss of motion, spasm, tenderness Integumentary (Brief) Integumentary: FOUND: dry, warm Neurologic (Brief) Neurological: FOUND: cranial 2-12 intact, motor (Intact ) Psychiatric (Brief) Psychiatric: FOUND: alert, attentive, normal affect, oriented, other (Not anxious. Thoughts linear. ) Laboratory Laboratory Laboratory Tests 09/29/16 07:15 09/30/16 04:58 Laboratory Tests 09/29/16 07:15 09/30/16 04:58 Assessment & Plan Problems: (1) COPD with acute exacerbation Status: Acute (2) Hypernatremia Status: Acute Assessment & Plan: Present on admission, sodium 148 (3) Elevated bilirubin Status: Acute Assessment & Plan: Acute present on admission, bilirubin up to 1.6. (Baseline 0.6) (4) Atherosclerotic heart disease of [place] coronary artery without angina pectoris Status: Chronic (5) Atrial fibrillation Status: Chronic (6) Essential (primary) hypertension Status: Chronic (7) Mixed hyperlipidemia Status: Chronic (8) History of anemia Status: Chronic (9) IBS (irritable bowel syndrome) Status: Chronic (10) Hypothyroidism Status: Chronic (11) Chronic pain Status: Chronic (12) Depression Status: Chronic (13) Cigarette nicotine dependence, uncomplicated Status: Chronic (14) History of GI bleed Status: Resolved Assessment & Plan: September 18, 2016- chronic anticoagulation (Eliquis) stopped at that time (15) Marijuana use Status: Chronic Assessment & Plan: Daily use (16) Hx of cerebral aneurysm repair Status: Resolved Plan/Intensity of Service Will d/c to home - medically stable. Condition improved. Amoxicillin 500mg TID for 5 days for pulmonary coverage. Prednisone 20mg daily for 3 days. Mucinex DM prn cough/congestion. Acapella as needed for congestion. F/U with Dr Richmond in 1 week. See orders for details. DVT Prophylaxis: SCD'S Code Status Full Code Hospital Course Summary Disclaimer The hospital course summary below is not to be considered part of the above Progress Note. Hospital Course Summary Admit patient to outpatient observation under the care of Dr. Goldstein for COPD exacerbation Respiratory panel obtained on admission and was all negative. Due to her COPD exacerbation with possible pneumonia we will give her Rocephin 1gm and azithromycin 500 IV daily. Solu-Medrol 125mg IV every 6 hours for pulmonary inflammation Additionally we will add Pulmicort breathing treatments twice daily with Duoneb breathing treatments four times daily. We will try and wean her oxygen as able, she is currently on 2 L per nasal cannula. Her vitals are currently stable. Place on telemetry for history of atrial fibrillation and increased oxygen demands. Continue Sotalol 40mg twice daily. Patient reports that her stomach symptoms have resolved since her last admission here at [facility] last week and since taking her medications. Nursing reports that the patient did report non-compliance with her new GI medications. We will continue her [id number] before meals and at bedtime, Levsin 0.375mg twice daily, Prilosec 20 before meals twice daily, Vitamin B-12 1,000 mcg daily , folic acid 1mg daily and Ferrous Sulfate 324mg daily that was prescribed upon dismissal last week. Continue Lipitor, Lexapro,and levothyroxine. For chronic pain control we will continue her Gabapentin 100mg daily and [place] 5 /325mg every 4 to 6 hours as needed for pain Encouraged tobacco and marijuana cessation. Nicotine patch daily as needed. With recent GI bleed we will add SCDs for DVT prophylaxis. Will discuss further plan of care with attending, Dr. Goldstein. At time of discharge medical care will return to primary care provider, Dr. Richmond 09/30 Doing much better today. Breathing easier-much less SOA. Not having cough/ congestion. No pain with breathing. Not having chest pressure or pain. Denies nausea or ab pain. Moving better. Will d/c to home - medically stable. Condition improved. Amoxicillin 500mg TID for 5 days for pulmonary coverage. Prednisone 20mg daily for 3 days. Mucinex DM prn cough/congestion. Acapella as needed for congestion. F/U with Dr Richmond in 1 week. See orders for details. GUSTABO GOLDSTEIN MD Sep 30, 2016 10:39
[2016-09-30] MEDS ORDERED: PRED20TA PO (10:45)
[2016-09-30] MEDS ORDERED: GUAI-782 PO (10:45)
[2016-09-30] MEDS ORDERED: AMOX500C2 PO (10:45)
--- NOTE | 2016-09-30 13:52 | NUR ---
DISCHARGED PATIENT DISCHARGE AND MEDICATION INSTRUCTION GIVEN. PRINTED NEW MEDICATION INFORMATION GIVEN. SCRIPTS WITH PATIENT. ALL QUESTIONS ANSWERED. PATIENT IS DISCHARGED TO HOME WITH . PATIENT IS WHEELED OUT TO PRIVATE VEHICLE AT THIS TIME.
--- NOTE | 2016-10-02 15:06 | DSF ---
ADMISSION DIAGNOSIS COPD with acute exacerbation. DISCHARGE DIAGNOSIS COPD with acute exacerbation--improved. ASSOCIATED CONDITIONS AND COMPLICATIONS Hypernatremia (present on admission). Elevated bilirubin. ASCAD. Chronic atrial fibrillation. Hypertension. Hyperlipidemia. History of anemia. Irritable bowel syndrome. Hypothyroidism. Chronic pain syndrome. Depression. Tobacco dependency. History of GI bleed. Marijuana use. History of cerebral aneurysm repair. PROCEDURES None. CONSULTS RT for tobacco cessation. CLINICAL RESUME Patient is a 61-year-old female who resides at home with her . She was recently hospitalized at [facility] on 09/22/2016 secondary to GI bleed. At that time, she did undergo EGD by Dr. Man, which revealed mild gastritis and small ulceration of the gastric antrum and mild duodenitis. Biopsy was taken. She was H. pylori negative. She was dismissed home on Carafate and Prilosec. She returns to the Emergency Department today secondary to complaints of shortness of breath with exertion and at rest. She reports her respiratory status has been worsening for approximately one week. She does have two inhalers, but it is unsure of the name or who prescribed them. She does not use them very often. She has been having to use oxygen at home. She does smoke about a pack of cigarettes a day as she has done for the past 50 years. She also smokes about a quarter bag of marijuana per week to control pain and insomnia. She reports she has been having intermittent chest pain for "months". Her sales clerk is Dr. Gurrola, and she has an appointment to see him in two weeks. He was consulted and saw her during her last hospitalization. Lab was obtained. Chest x-ray shows evidence of patchy right lobe consolidation somewhat suspicious for pneumonia. While she was maintaining saturations well on room air, she is quite anxious and very dyspneic. In light of her symptoms, hospitalist service was notified and she was subsequently placed in inpatient admission status at [facility] for further evaluation and treatment. For complete details of the H&P refer to that document. LABORATORY White blood count is 8.9, with hemoglobin 8.5, hematocrit 29.1, MCV 86.6, and platelets 412,000. Serum sodium is 148, potassium 3.8, chloride 114, CO2 21, BUN 10, with creatinine 0.7, GFR 85, and blood glucose 91. Total bilirubin slightly elevated at 1.6. Transaminases are unremarkable. Troponin I is less than 0.012. Pro-BNP is 1680. INR is 1.23. D-dimer is slightly elevated at 2.31. ABG reveals pH 7.420, with pCO2 37, pO2 64, with 92% saturations on 1 liter per nasal cannula. UA is remarkable for low specific gravity at 1.010 and 1+ blood. Respiratory PCR panel is completely negative. HOSPITAL COURSE Patient was placed in outpatient observation status at [facility] under the care of Dr. Goldstein. In light of her COPD exacerbation and possible pneumonia, she was started on Rocephin 1 gram IV daily along with azithromycin 500 mg IV daily. Solu-Medrol was started at 125 mg IV q.6h. to help decrease pulmonary inflammation. Nebulized treatments of DuoNeb were utilized q.i.d. with Pulmicort b.i.d. Supplemental oxygen was continued. We did work to wean this off during the hospitalization. Home medications were continued. RT was consulted for tobacco cessation. I did have a nicotine patch available. SCDs were initiated for DVT prophylaxis. Lab was monitored. Overall her hospital course was one of good improvement. By hospital day number one, she felt she was breathing much better. She was moving air better and moving her body much better. She was able to be weaned off of oxygen and maintain saturations at 97% on room air. She was markedly less dyspneic. White count was normal. Sodium was trending downwards. Her creatinine was stable. In light of her significant improvement, she was able to be discharged to home. NARRATIVE DISCLAIMER: Above narrative is a brief summary of the patient's hospitalization. For complete details of the hospital course, refer to the medical record. DISCHARGE CONDITION Stable/good. DIET Low sodium. ACTIVITIES As tolerated. MEDICATIONS Amoxicillin 500 mg p.o. t.i.d. x5 days. Mucinex DM b.i.d. Prednisone 20 mg daily with breakfast x3 days. Lipitor 40 mg q.h.s. Vitamin B12 1000 mcg daily. Escitalopram 20 mg daily. Ferrous sulfate 324 mg with breakfast. Folic acid 1 mg daily. Neurontin 100 mg daily. [place] 5/325 one every 4 to 6 hours p.r.n. Levbid 0.675 mg b.i.d. Synthroid 0.1 mg daily. Nicotine patch 14 mg to skin daily. Omeprazole 20 mg b.i.d. Zofran ODT 4 mg q.4h. p.r.n. nausea. Sotalol 40 mg a.c. b.i.d. Carafate 1 gram a.c. and h.s. FOLLOWUP Patient will follow with Dr. Richmond in one week. INSTRUCTIONS TO PATIENT Patient was instructed on her diagnoses and treatments provided. She received tobacco cessation information and was encouraged to work to become a nonsmoker. She was encouraged to be adherent with medications. We encouraged her on healthy, well-rounded diet and activities. She will watch for temperature elevation. Watch for worsening respiratory status. Should problems or need occur, she will be in contact with her primary provider. If symptoms become quite dire, she can present to emergency room for acute evaluation. She voiced understanding of the above. Time spent with discharge greater 35 minutes. REGINALD
== END 2016-09-30 13:50 | disposition home or self-care (01) ==
LOC: ED 06:27 → MED 09:24 → EDHOLD 09:24
PROVIDERS: ADMIT Hospitalist; ATTEND Hospitalist
DX: J44.1 Chronic obstructive pulmonary disease with (acute) exacerbation (principal); E87.0 Hyperosmolality and hypernatremia; R79.89 Other specified abnormal findings of blood chemistry; I25.10 Atherosclerotic heart disease of native coronary artery without angina pectoris; I48.2 Chronic atrial fibrillation; I10 Essential (primary) hypertension; E11.9 Type 2 diabetes mellitus without complications; E78.5 Hyperlipidemia, unspecified; K58.9 Irritable bowel syndrome, unspecified; E03.9 Hypothyroidism, unspecified; G89.4 Chronic pain syndrome; F32.9 Major depressive disorder, single episode, unspecified; F17.210 Nicotine dependence, cigarettes, uncomplicated; Z99.81 Dependence on supplemental oxygen; Z87.11 Personal history of peptic ulcer disease; F12.10 Cannabis abuse, uncomplicated; Z87.440 Personal history of urinary (tract) infections; F41.9 Anxiety disorder, unspecified; Z79.82 Long term (current) use of aspirin; Z79.899 Other long term (current) drug therapy
CPT/HCPCS: 36415; 71020; 80048; 80053; 81001; 82803; 83880; 84484; 85025; 85379; 85610; 87486; 87581; 87633; 87798; 93005; 94640; 94667; 96361; 96365; 96366; 96367; 96375; 96376; 99284; A9270; G0378; J0456; J0696; J1170; J2930; J7030; J7050; J7626; 99218

== ENCOUNTER 2016-10-07 13:36 | Emergency (ER) | payer MEDICARE, BC ==
[~2016-10-07] VITALS: Ht 160 cm; Wt 78.0 kg
[2016-10-07 13:36] VITALS: Ht 160 cm; Wt 78.0 kg
[~2016-10-07 13:36] MED LIST changes: +AMOX500C2 PO; -APIX5TAB PO; -ASPI325T PO; -FURO20TA4 PO; +GUAI-782 PO; -ISOS30TA6 PO; -OXYC1TAB8 PO; -POTA20TA87 PO; +PRED20TA PO
--- OUTSIDE RECORDS SUMMARY | 2016-10-07 13:46 | XMS REPORT | Continuity of Care Document ---
Author Author [facility] Organization [facility] Address Unknown Phone Unavailable Support Name Relationship Address Phone GUSTABO MCADAMS MD Caregiver [address] [place] [address] [place] [address] Unavailable GUSTABO MCADAMS MD Caregiver [address] [place] [address] [place] [address] Unavailable SANJEEV RICHMOND MD Caregiver [address] [facility] [address] Unavailable LIBERTY YOUSIF MD Caregiver [address] [place] [address] Unavailable STEVE JAY Next Of Kin [address] [place] [address] Insurance Providers Guarantor Tiffanie Jay Address [address] [place] [address] Email DENIED 09-29-16 [facility] Policy Number [id number] Subscriber's Name Steve Jay Relationship 01 Spouse Group Number [id number] Payer Medicare Policy Number [id number] Subscriber's Name Tiffanie Jay Relationship 18 Self Advance Directives Directive Response Recorded Date/Time Ordered Resuscitation Status Full Code 09/29/16 9:12am Resuscitation Documents on File Y pt states DNR 09/29/16 10:13am DPOA for Healthcare Only No 09/29/16 10:13am Living Will No 09/29/16 10:13am Advanced Directive or Resuscitation Comments DPOA paperwork needed 09/29/16 10:13am Problems Active Problems Medical Problem Onset Date Status AAA (abdominal aortic aneurysm) Unknown Chronic 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 Atrial fibrillation Unknown Chronic Carotid aneurysm, right Unknown Chronic Chronic pain Unknown Chronic Cigarette nicotine dependence, uncomplicated Unknown Chronic Depression Unknown Chronic Elevated bilirubin Unknown Acute Essential (primary) hypertension Unknown Chronic History of GI bleed Unknown Resolved History of anemia Unknown Chronic Hypernatremia Unknown Acute Hypothyroidism Unknown Chronic IBS (irritable bowel syndrome) Unknown Chronic Marijuana use Unknown Chronic Mixed hyperlipidemia Unknown Chronic Paroxysmal atrial fibrillation Unknown Chronic Surgical Problem Onset Date Status Hx of cerebral aneurysm repair Unknown Resolved Past Problems Medical Problem Onset Date Acute chest wall pain Unknown COPD with acute exacerbation Unknown GI bleed Unknown Pneumonia Unknown Medications Current Home Medications Medication Dose Units Route Directions Days Qty Instructions Start Date Acetaminophen/Hydrocodone Bitart ([place] 5-325 Tablet) 5-325 Tablet 1 Tab Oral Every 4-6 Hours Prn 09/01/16 Amoxicillin 500 Mg Capsule 1 Cap Oral Three Times A Day 15 Capsule 09/30/16 Atorvastatin Calcium 40 Mg Tablet 1 Tab [...] Mg Capsule 1 Cap Oral Daily 02/27/15 Guaifenesin/Dextromethorphan (Mucinex Dm Er 600-30 Mg Tablet) 1 Each Tab.er.12h 1 Tab Oral Every 12 Hours as needed for Cough/Congestion 20 Tablet 09/30/16 Hyoscyamine (Levbid) 0.375 Mg Tablet 1 Tab [...] &/Or Vomiting 3 Days 18 Tablet 09/01/16 Prednisone 20 Mg Tablet 20 Mg Oral Give With Breakfast 3 Tablet Take 1 tablet, by mouth, daily with breakfast. 09/30/16 Sotalol Hcl (Betapace) 80 Mg Tablet 40 [...] 20 Mg Oral Qd 09/01/16 Discontinued Hydrocodone/Acetaminophen ([place] 5-325 Tablet) 1 Each Tablet, 1-2 Tab [...] Hours as needed for Pain 09/01/16 Discontinued Pantoprazole Sodium 40 Mg Tablet.dr, 40 Mg Oral Before Meals Twice A Day 06/05 Discontinued Potassium Chloride 20 Meq Tab.er.prt, 20 Meq Oral Qd 09/01/16 Discontinued Simvastatin 20 Mg Tablet, 20 Mg Oral Daily 09/13/11 Discontinued Ubidecarenone/Vitamin E (Co Q-10 50 Mg Softgel) 1 Cap Capsule, 1 Cap Oral Daily 09/13/11 Discontinued Venlafaxine Hcl 37.5 Mg Tablet, 37.5 Mg Oral Daily 09/13/11 Discontinued Social History Social History Problem Response Recorded Date/Time Onset Date Status Reason for Hospitalization COPD with acute exacerbation 09/30/2016 12:53pm Not Applicable Not Applicable Hx Substance Use No 09/29/2016 7:26am Not Applicable Not Applicable Hx Alcohol Use No 09/29/2016 7:26am Not Applicable Not Applicable Has the pt used tobacco in the last 12 months Yes 09/29/2016 10:16am Not Applicable Not Applicable Tobacco Usage none 11/29/2014 8:30am Not Applicable Not Applicable Query Response Start Date Stop Date Smoking Status Current every day smoker Hospital Discharge Instructions Instructions: Care Instructions: I was in the hospital because (patient own words): "I can't breathe" Discharge Diet: Low sodium Discharge Activity: As tolerated q Follow Up Appointments: Dr Richmond in 1 week FOLLOW UP APPOINTMENT WITH DR. RICHMOND ON 10/07/2016 AT 10:30 AM--OFFICE NUMBER [phone] Pending Lab / Results: No Pending Lab Patient Instructions: Start Amoxicillin and Prednisone on 10/01 Use Acapella 4 times a day as needed to loosen secreations. Expected Signs/Symptoms: Improvement of breathing Notify Physician If: Temp >100.4. New or worsening chest pain. During Business Hours:: Please call the physician's office at After Business Hours:: Please call [phone] and have the gluer machine operator page the physician. Pain Management/Treatment: Tylenol as needed Wound/Incision Care: n/a Condition at time of discharge: Good Plan of Care Discharge Date 09/30/16 1:50pm Disposition 01 DISCHARGED HOME, SELF-CARE Prescriptions See Medication Section Additional Instructions/Education Start Amoxicillin and Prednisone on 10/01 Use Acapella 4 times a day as needed to loosen secreations. Care Plan and Goals See Discharge Instructions Section Functional Status Query Response Date Recorded Mobility Status Ambulatory September 29, 2016 10:11am Assistive Devices None September 29, 2016 10:11am Activity Limitations Shortness of breath September 29, 2016 10:11am Feeding Ability Independent September 29, 2016 10:11am Toileting Ability Independent September 29, 2016 10:11am Grooming Ability Independent September 29, 2016 10:11am Dressing Ability Independent September 29, 2016 10:11am Driving Ability Independent September 29, 2016 10:11am Housework Ability Independent September 29, 2016 10:11am Meal Preparation Ability Independent September 29, 2016 10:11am Stair Climbing Ability Independent September 29, 2016 10:11am Ability to complete ADL's impeded by No change September 29, 2016 10:13am Cognitive/Perceptual Impairments Impaired vision September 29, 2016 10:11am Visual Assistive Devices Glasses September 29, 2016 10:11am Allergies, Adverse Reactions, Alerts Allergen Type Severity Reaction Status Last Updated Sulfa (Sulfonamide Antibiotics) Allergy Unknown UNKNOWN Active 09/29/16 ZOMAX Allergy Unknown HIVES Active 02/27/15 Immunizations Query Response on File Recorded Date/Time Hx Influenza Vaccination No 09/29/16 10:16am Hx Pneumococcal Vaccination No 09/29/16 10:16am Hx Influenza Vaccination No 09/29/16 10:16am Influenza Vaccine Hx NOT UP TO DATE 09/29/16 7:26am Vital Signs Acute Vital Signs Vital Response Date/Time Temperature (Fahrenheit) 97.8 deg F (96.8 - 99.1) 09/30/2016 8:00am Temperature (Calculated Celsius) 36.14325 degrees C (36.0 - 37.3) 09/30/2016 8:00am Temperature Source Temporal 09/22/2016 10:57am Pulse Rate (adult) 64 bpm (60 - 100) 09/30/2016 8:00am Respiratory Rate 20 breaths/min (10 - 20) 09/30/2016 8:00am O2 Sat by Pulse Oximetry 97 % (90 - 100) 09/30/2016 10:22am Oxygen Delivery Method Nasal Cannula 09/29/2016 7:44pm Oxygen Delivery Method Room Air 09/30/2016 10:22am Oxygen Flow Rate 1.00 L/min 09/30/2016 8:00am Blood Pressure 143/82 mm Hg 09/30/2016 8:00am Blood Pressure Source Automatic Cuff 09/30/2016 8:00am Height (Feet) 5 feet 09/30/2016 10:42am Height (Inches) 3.00 inches 09/30/2016 10:42am Weight (Kilograms) 76.800 kg 09/30/2016 8:00am Body Mass Index (BMI) 28.6 09/29/2016 10:12am Results Laboratory Results Test Name Result Units Flags Reference Collection Date/Time Result Date/ Time Comments Phosphorus Level 3.6 MG/DL 2.5-4.5 09/19/2016 7:00am 09/19/2016 3:05pm Total Creatine Kinase 56 U/L 30-135 09/19/2016 7:00am 09/19/2016 3: 05pm Magnesium Level 2.0 MG/DL 1.6-2.3 09/19/2016 7:00am 09/19/2016 2:59pm Iron Level 47 UG/DL 37-170 09/19/2016 7:00am 09/20/2016 1:45am Total Iron Binding Capacity 321 UG/DL 261-497 09/19/2016 7:002016 1:54am Percent Iron Saturation 15 % 9-55 09/19/2016 7:00am 09/20/2016 1:54am Vitamin B12 Level 250 PG/ML 239-931 09/19/2016 7:00am 09/20/2016 2: 54am Folate 4.6 NG/ML 2.76-20 09/19/2016 7:00am 09/20/2016 2:54am NORMAL ADULT RANGE: 2.76->20 ng/mL Thyroid Stimulating Hormone (TSH) 3.12 MIU/L 0.47-4.68 09/19/2016 7: 00am 09/19/2016 3:30pm Stool Occult Blood POSITIVE A 09/20/2016 9:47am 09/20/2016 10:34am White Blood Count 5.7 T/MM3 4.5-11.0 09/30/2016 4:58am 09/30/2016 5: 21am Red Blood Count 3.38 M/MM3 L 4.00-5.20 09/30/2016 4:58am 09/30/2016 5: 21am Hemoglobin 8.6 GM/DL L 12-16 09/30/2016 4:58am 09/30/2016 5:21am Hematocrit 28.7 % L 36-46 09/30/2016 4:58am 09/30/2016 5:21am Mean Corpuscular Volume 84.9 UM3 80-100 09/30/2016 4:58am 09/30/2016 5: 21am Mean Corpuscular Hemoglobin 25.4 UUG L 26-34 09/30/2016 4:58am 2016 5:21am Mean Corpuscular Hemoglobin Concent 30.0 GM/DL L 31-37 09/30/2016 4:58am 09/30/2016 5:21am RDW Standard Deviation 51.6 FL H 36.9-50.2 09/30/2016 4:58am 09/30/2016 5:21am Platelet Count 352 T/MM3 130-400 09/30/2016 4:58am 09/30/2016 5:21am Mean Platelet Volume 11.1 UM3 9.4-12.4 09/30/2016 4:58am 09/30/2016 5: 21am Neutrophils (%) (Auto) 76.7 % H 33-66 09/29/2016 7:1509/29/2016 7: 23am Lymphocytes (%) (Auto) 13.0 % L 23-45 09/29/2016 7:1509/29/2016 7: 23am Monocytes (%) (Auto) 8.2 % 0-9.0 09/29/2016 7:1509/29/2016 7:23am Eosinophils (%) (Auto) 0.8 % 0-4 09/29/2016 7:1509/29/2016 7:23am Basophils (%) (Auto) 1.2 % 0-2 09/29/2016 7:09/29/2016 7:23am Immature Granulocyte % (Auto) 0.1 % 0.0-0.5 09/29/2016 7:2016 7:23am Absolute Neutrophils (auto) 6.8 T/MM3 1.8-7.7 09/29/2016 7:2016 7:23am Absolute Lymphocytes (auto) 1.2 T/MM3 1-4.8 09/29/2016 7:2016 7:23am Absolute Monocytes (auto) 0.7 T/MM3 0-0.8 09/29/2016 7:09/29/2016 7:23am Absolute Eosinophils (auto) 0.1 T/MM3 0-0.5 09/29/2016 7:2016 7:23am Absolute Basophils (auto) 0.1 T/MM3 0-0.2 09/29/2016 7:09/29/2016 7:23am Absolute Immature Granulocyte (auto 0.01 T/MM3 0.00-0.03 09/29/2016 7: 1509/29/2016 7:23am Neutrophils % (Manual) 84.0 % H 33-66 09/30/2016 4:58am 09/30/2016 6: 25am Band Neutrophils % 1.0 % 0-6 09/30/2016 4:58am 09/30/2016 6:25am Lymphocytes % (Manual) 14.0 % L 23-45 09/30/2016 4:58am 09/30/2016 6: 25am Monocytes % (Manual) 3.0 % 0-9.0 09/29/2016 7:15am 09/29/2016 7:56am Eosinophils % (Manual) 1.0 % 0-4 09/29/2016 7:15am 09/29/2016 7:56am Basophils % (Manual) 1.0 % 0-2 09/30/2016 4:58am 09/30/2016 6:25am Band Neutrophils # 0.1 T/MM3 09/30/2016 4:58am 09/30/2016 6:25am Absolute Neutrophils (Manual) 4.8 T/MM3 1.8-7.7 09/30/2016 4:58am 09/30 6:25am Lymphocytes # (Manual) 0.8 T/MM3 L 1-4.8 09/30/2016 4:58am 09/30/2016 6: 25am Monocytes # (Manual) 0.3 T/MM3 0-0.8 09/29/2016 7:15am 09/29/2016 7: 56am Eosinophils # (Manual) 0.1 T/MM3 0-0.5 09/29/2016 7:15am 09/29/2016 7: 56am Basophils # (Manual) 0.1 T/MM3 0-0.2 09/30/2016 4:58am 09/30/2016 6: 25am Nucleated Red Blood Cells 1 09/30/2016 4:58am 09/30/2016 6:25am Red Cell Morphology Comment ABNORMAL 09/30/2016 4:58am 09/30/2016 6 :25am Poikilocytosis 1+ 09/30/2016 4:58am 09/30/2016 6:25am Hypochromasia 1+ 09/30/2016 4:58am 09/30/2016 6:25am Prothromb Time International Ratio 1.23 H 0.76-1.04 09/29/2016 7:1509/29/2016 7:26am THERAPUTIC RANGE=2.00-3.00 FOR ANTI-THROMBOSIS THERAPUTIC RANGE=2.50-3.50 FOR IMPLANTED VALVE D-Dimer 231 NG/ML H 0-230 09/29/2016 7:1509/29/2016 7:26am <230 NG/ ML D-DU=PRESUMPTIVE NEGATIVE FOR PE OR DVT >230 NG/ML D-DU=ADDITIONAL EVAL FOR PE OR DVT RECOMMENDED Icterus Index < 2 0-7 09/30/2016 4:58am 09/30/2016 5:24am Chemistry Specimen Hemolysis < 15 0-25 09/30/2016 4:58am 09/30/2016 5 :24am 0-25: Specimen Exhibited No Hemolysis. Turbidity < 20 0-20 09/30/2016 4:58am 09/30/2016 5:24am Sodium Level 146 MEQ/L H 134-144 09/30/2016 4:58am 09/30/2016 5:24am Potassium Level 4.6 MEQ/L D 3.6-5 09/30/2016 4:58am 09/30/2016 5:33am Chloride Level 112 MEQ/L H 98-107 09/30/2016 4:58am 09/30/2016 5:24am Carbon Dioxide Level 24 MEQ/L 22-30 09/30/2016 4:58am 09/30/2016 5: 24am Anion Gap 10 MEQ/L 5-15 09/30/2016 4:58am 09/30/2016 5:24am Blood Urea Nitrogen 17.0 MG/DL D 7-17 09/30/2016 4:58am 09/30/2016 5: 33am Creatinine 0.7 MG/DL 0.7-1.2 09/30/2016 4:58am 09/30/2016 5:24am BUN/Creatinine Ratio 24 RATIO 6-26 09/30/2016 4:58am 09/30/2016 5:24am Glomerular Filtration Rate Calc 85 09/30/2016 4:58am 09/30/2016 5: 24am Glucose Level 155 MG/DL H 65-110 09/30/2016 4:58am 09/30/2016 5:24am Calculated Osmolality 286 MOSM/KG H 261-280 09/30/2016 4:58am 2016 5:24am Calcium Level 8.9 MG/DL 8.4-10.2 09/30/2016 4:58am 09/30/2016 5:24am Total Bilirubin 1.60 MG/DL H 0.20-1.30 09/29/2016 7:15am 09/29/2016 7: 30am Alkaline Phosphatase 149 U/L H 38-126 09/29/2016 7:15am 09/29/2016 7: 30am Total Protein 6.3 G/DL 6.3-8.2 09/29/2016 7:09/29/2016 7:30am Albumin 3.6 G/DL 3.5-5.0 09/29/2016 7:09/29/2016 7:30am Globulin 2.7 G/DL 2.4-3.6 09/29/2016 7:09/29/2016 7:30am Albumin/Globulin Ratio 1.3 RATIO 1.1-2.2 09/29/2016 7:09/29/2016 7 :30am Aspartate Amino Transf (AST/SGOT) 31 U/L 14-36 09/29/2016 7:2016 7:30am Alanine Aminotransferase (ALT/SGPT) 34 U/L 9-52 09/29/2016 7:09/29 7:30am Troponin I < 0.012 ng/ml 0-0.12 09/29/2016 7:09/29/2016 7:42am Troponin values with a difference of 55% increase from orginal troponin value represent a true biological DELTA value. (%increase Calc=Orginal Troponin value, divided by subsequent Troponin value, multiplied by 100) VC-Qth-I-Type Natriuretic Peptide 1680 PG/ML H 0-175 09/29/2016 7:09/29/2016 7:42am Rule in cut points: <50 years old=450; 50-75 years old=900; >75 years old=1800; When utilizing ProBNP rule-in cut points, adjustment for impaired renal function is typically not required. Arterial Blood pH 7.420 7.350-7.450 09/29/2016 8:0009/29/2016 8: 09am Arterial Blood Partial Pressure CO2 37 MMHG 34-45 09/29/2016 8:0005/2017 8:09am Arterial Blood pO2 at Patient Temp 64 MMHG L 80-100 09/29/2016 8:00 8:09am Arterial Blood HCO3 24 MEQ/L 22-26 09/29/2016 8:00am 09/29/2016 8:09am Arterial Blood Total CO2 25.1 MEQ/L 23-27 09/29/2016 8:0009/29/2016 8:09am Arterial Blood Base Excess -0.2 MMOL/L -2.0-2.0 09/29/2016 8:00am 09/29 8:09am Arterial Blood Oxygen Saturation 92.0 % L 95.0-98.0 09/29/2016 8:00am 8:09am Blood Gas Oxygen Liter Flow 1 09/29/2016 8:00am 09/29/2016 8:09am Oxygen Delivery Method (LAB) SIMPLE MASK, % 09/29/2016 8:00am 09/29 8:09am Adenovirus (PCR) NEGATIVE NEGATIVE 09/29/2016 9:2909/29/2016 10: 55am Coronavirus Type 229E (PCR) NEGATIVE NEGATIVE 09/29/2016 9:2909/29 10:55am Coronavirus Type HKU1 (PCR) NEGATIVE NEGATIVE 09/29/2016 9:09/29 10:55am Coronavirus Type NL63 (PCR) NEGATIVE NEGATIVE 09/29/2016 9:09/29 10:55am Coronavirus Type OC43 (PCR) NEGATIVE NEGATIVE 09/29/2016 9:09/29 10:55am Human Metapneumovirus (PCR) NEGATIVE NEGATIVE 09/29/2016 9:2909/29 10:55am Enterovirus/Rhinovirus (PCR) NEGATIVE NEGATIVE 09/29/2016 9:2905/2017 10:55am Influenza Virus Type A (PCR) NEGATIVE NEGATIVE 09/29/2016 9:2905/2017 10:55am Influenza Virus Type B (PCR) NEGATIVE NEGATIVE 09/29/2016 9:05/2017 10:55am Parainfluenza Type 1 (PCR) NEGATIVE NEGATIVE 09/29/2016 9:292016 10:55am Parainfluenza Type 2 (PCR) NEGATIVE NEGATIVE 09/29/2016 9:292016 10:55am Parainfluenza Type 3 (PCR) NEGATIVE NEGATIVE 09/29/2016 9:292016 10:55am Parainfluenza Type 4 (PCR) NEGATIVE NEGATIVE 09/29/2016 9:292016 10:55am Respiratory Syncytial Virus (PCR) NEGATIVE NEGATIVE 09/29/2016 9:2909/29/2016 10:55am Bordetella parapertussis DNA (PCR) NEGATIVE NEGATIVE 09/29/2016 9: 29am 09/29/2016 10:55am Chlamydia pneumoniae DNA (PCR) NEGATIVE NEGATIVE 09/29/2016 9:29am 10:55am Mycoplasma pneumoniae (PCR) NEGATIVE NEGATIVE 09/29/2016 9:29am 09/29 10:55am Urine Collection Type VOIDED-NOT CC-MIDSTR 09/29/2016 7:152016 7:20am Urine Color YELLOW YELLOW 09/29/2016 7:1509/29/2016 7:20am Urine Turbidity CLEAR CLEAR 09/29/2016 7:1509/29/2016 7:20am Urine Specific Trade 1.010 L 1.015-1.025 09/29/2016 7:152016 7:20am Urine pH 7.0 5.0-8.0 09/29/2016 7:1509/29/2016 7:20am Urine Leukocyte Esterase NEGATIVE NEGATIVE 09/29/2016 7:152016 7:20am Urine Nitrite NEGATIVE NEGATIVE 09/29/2016 7:1509/29/2016 7:20am Urine Protein NEGATIVE NEGATIVE 09/29/2016 7:1509/29/2016 7:20am Urine Glucose (UA) NEGATIVE NEGATIVE 09/29/2016 7:1509/29/2016 7: 20am Urine Ketones NEGATIVE NEGATIVE 09/29/2016 7:1509/29/2016 7:20am Urine Urobilinogen 0.2 EU/DL NORMAL 09/29/2016 7:1509/29/2016 7: 20am Urine Bilirubin NEGATIVE NEGATIVE 09/29/2016 7:1509/29/2016 7: 20am Urine Blood 1+ A NEGATIVE 09/29/2016 7:1509/29/2016 7:20am Urine WBC 0-1 /HPF 0-5 09/29/2016 7:1509/29/2016 7:41am Urine RBC 0-1 /HPF 0-3 09/29/2016 7:1509/29/2016 7:41am Urine Squamous Epithelial Cells 0-5 09/29/2016 7:1509/29/2016 7: 41am Urine Bacteria NONE SEEN NEGATIVE 09/29/2016 7:15am 09/29/2016 7: 41am Urine Culture Indicated CULT NOT INDICATED 09/29/2016 7:15am 2016 7:41am Name: TIFFANIE JAY Unit #: [id number] : 1955 Sex: F Admit Date: Loc / Svc: ED Discharge Date: DIAGNOSTIC IMAGING REPORT Report #: [id number] [facility] LUZ Menijvar Indication: ITS.REASON: dyspnea Procedure: CHEST, PA LATERAL: Encounter: Initial Comparison: Pulmonary CT angiogram and chest radiograph 09/01/2016 Technique: PA and lateral radiographs of the chest were obtained. Findings: Lungs and airways: Normal lung volumes. New patchy right lower lobe airspace consolidation. Normal pulmonary vasculature. Pleura: No pleural effusion or pneumothorax. Heart and mediastinum: Aortic atherosclerosis. The heart appears normal in size. Osseous structures and soft tissues: No acute osseous abnormality is seen. Degenerative arthrosis of the AC joints. Degenerative disc disease of the thoracic spine. Impression: New patchy right lower lobe airspace consolidation which could reflect developing pneumonia in the appropriate clinical setting. . Procedures Procedure Status Date Provider(s) Chest x-ray [...] addon Completed 09/01/16 Emergency dept visit Completed 09/01/16 736163"INJECTION, ONDANSETRON HYDROCHLORIDE, PER 1 MG" Completed 03/15/17 [id number]"INJECTION, FENTANYL CITRATE, 0.1 MG" Completed 09/01/16 [id number]"INFUSION, NORMAL SALINE SOLUTION , 250 CC" Completed 09/01/16004416"LOW OSMOLAR CONTRAST MATERIAL, 300-399 MG/ML IODINE C Completed Esophagogastroduodenoscopy (EGD) with closed biopsy Completed 09/22/16 EVELYN FITZGERALD MD Encounters Encounter Location Arrival/Admit Date Discharge/Depart Date Attending Provider Discharged Inpatient (obs) [facility] 09/29/16 9:24am 09/30/16 1: 50pm GUSTABO MCADAMS MD Discharged Inpatient [facility] 09/18/16 11:07pm 09/22/16 4:40pm ULISES ZUNIGA MD Departed Emergency Room [facility] 09/01/16 9:02am 09/01/16 12: 38pm CHICHO LORENZO DO
--- OUTSIDE RECORDS SUMMARY | 2016-10-07 13:46 | XMS REPORT | Continuity of Care Document ---
Author Author [facility] Organization [facility] Address Unknown Phone Unavailable Allergies Active Description [...] Procedures Code Description Performed By Performed On [id number] EXCISION OF DUODENUM, ENDO, DIAGN Yamile Cheng [...] PLATELET COUNT 427 k/cumm 150-400 [facility]EL[facility] 08[facility]15 03:06 POTASSIUM 4.3 [...] Status Pt. Type Provider Facility Loc./Unit Complaint [id number] 08/01/2015 16:19:00 2015 17:34:[address] [facility] [id number] [id number] 08/08/2014 17:14:00 Document Registration
--- NOTE | 2016-10-07 13:47 | NUR ---
PROVIDER Rachel FERGUSON GRAIN DRIER OPERATOR IN TO SEE PATIENT.
--- NOTE | 2016-10-07 13:52 | NUR ---
FAMILY IN ROOM AT THIS TIME.
--- NOTE | 2016-10-07 13:56 | ERPDOC ---
Departure Disposition Decision Date: Oct 07, 2016 Disposition Decision Time: 15:19 Disposition: 01 DISCHARGED HOME, SELF-CARE Impression Impression Impression: Primary Impression: Epigastric abdominal pain Severity: Moderate Condition: Stable Seen By: Mid-level only Referrals: SANJEEV NAGY MD (Family) Patient Instructions: Abdominal Pain (ED) Problems/Meds/Labs Reviewed?: Yes Medications reviewed and manag: Yes Additional Instructions: Your labs today are normal. I do want you to go home and rest. Drink plenty of fluids and may eat a soft and bland diet as tolerated. If you should have return to pain or vomiting or any other issues/concerns then please return to Er for reevaluation. Follow up care ordered?: Yes Mental Status: Alert HPI - Abdominal Pain General Chief Complaint: Abdominal Pain Stated Complaint: ABD PAIN Time Seen by Provider: 13:41 Source: patient History/Exam Limitations: no limitations HPI - Abdominal Pain Initial Comments She was at her PCP office today for follow up appointments. Had been admitted to [facility] twice in the last 2 weeks. Initially for GI bleed, had hgb of 4.5. She left her PCP office and got into her car and started having severe abdominal pain. It was in her lower abdomen and radiates up to her epigastrum. Has had pain like this in the past due to adhesions. Was having dry heaves but denies any fever. Does feel like she needs to have a BM currently. Has not been having any diarrhea. Pain currently is only in the lower abdomen and is better. Occurred At: home Onset: Rapid Duration: 1-3 hrs Quality: sharpness Location: epigastric Radiation: no radiation Activities at Onset: none Associated Symptoms: nausea/vomiting (was having dry heaves), DENIES: back pain , chest pain, diaphoresis, fatigue, fever/chills, headache, heartburn, rash, shortness of breath, swelling/mass in abdomen, syncope, weakness Hx of Similar Symptoms: Yes Allergies: Coded Allergies: Sulfa (Sulfonamide Antibiotics) (Verified Allergy, Unknown, UNKNOWN, ) THROAT SWELLING Uncoded Allergies: ZOMAX (Allergy, Unknown, HIVES, 02/27/15) Past History Patient Surgical History Hysterectomy Cholecystectomy Appendectomy Cerebral aneurysm repair Cardiac catheter-08/2011 Past Medical History Metabolic: diabetes, hypertension Cardiac: A-fib, CAD, other Respiratory: COPD GI: IBS, other Female: UTI, pyelonephritis Musculoskeletal: osteoarthritis Psychological: anxiety, depression Surgical History General: appendix, gallbladder, other Reproductive/: D&C, hysterectomy Family History Family PMH: FOUND: CAD, cancer Vaccines Hx Influenza Vaccination: No Hx Pneumococcal Vaccination: No Social History Does patient use chewing tobac: No # of Packs/Tins per Day: 1 # of Years: 50 Substance Use Type: marijuana Alcohol Intake: none Marital Status: Advance Directives: Yes Full Code Review of Systems Constitutional Constitutional: DENIES: chills, dizziness, fatigue, fever, weakness Cardiovascular Cardiac: DENIES: chest pain, orthopnea Rhythm/Rate: DENIES: irregular beat, palpitations Vascular: DENIES: pedal edema, unilateral swelling Pulmonary Respiratory: DENIES: cough, dyspnea, sputum, tachypnea GI Upper Abdomen: nausea, pain, vomiting Lower Abdomen: pain, DENIES: constipation, diarrhea General: DENIES: dysuria, frequency, urgency Integumentary Skin: DENIES: rash Neurological General: DENIES: headache, numbness, tingling, weakness Physical Exam General General Nourishment: well nourished, well developed, appears stated age, no acute distress, adult General Body Habitus: well groomed Vitals and Pain First Documented Vital Signs Date Time Temp Pulse Resp B/P Pulse Ox O2 Delivery O2 Flow Rate FiO2 10/07/16 13:36 98.6 63 16 133/60 100 Room Air Weight: Kilograms: Height (feet): 5 Height (inches): 3.00 Triage Pain Scale: RN VS reviewed by Provider: Yes Normal Exams: Neck: Full range of motion, without adenopathy, JVD, bruits or thyromegaly Chest/Resp: Clear all snow, with good airflow, and symmetry bilaterally CV: Regular rate and rhythm, without murmur or gallop, Pulses 2+ all extremities, capillary refill, <2 seconds all ext., no pedal edema noted Abdomen: Bowel sounds positive, non-distended, no hepatosplenomegaly, masses or bruits noted Lymphatic: No lymphadenopathy, or lymphedema noted Integumentary: No rashes, hives, or bruising noted Neurologic: Patient is alert, and oriented Psychiatric: Patient exhibits, appropriate attention, emotion and affect Abdomen Inspection: NOT FOUND: distention Palpation: FOUND: soft, tender (Mild TTP in the epigastric region), voluntary guarding, NOT FOUND: involuntary guarding, rebound Differential Diagnoses Considering: Bowel Obstruction, Cholecystitis, Constipation, Gastroenteritis, GERD, GI Bleed, UTI Progress Results/Orders Orders Procedure Category Date Status Time Cbc W/Auto LAB 10/07/16 Complete Diff-Reflex Manual Cmp - Comprehensive LAB 10/07/16 Complete Metabolic Lipase LAB 10/07/16 Complete Iv Lock (Ed Only) EDM 10/07/16 Transmitted 13:49 UA, LAB 10/07/16 Complete Dip&Micro(Complete) & 14:48 Lab Results Laboratory Tests Test 10/07/16 13:48 10/07/16 14:48 White Blood Count 12.2T/MM3 Red Blood Count 3.75M/MM3 Hemoglobin 9.5GM/DL Hematocrit 31.8% Mean Corpuscular Volume 84.8UM3 Mean Corpuscular Hemoglobin 25.3UUG Mean Corpuscular Hemoglobin Concent 29.9GM/DL RDW Standard Deviation 58.8FL Platelet Count 327T/MM3 Mean Platelet Volume 11.6UM3 Immature Granulocyte % (Auto) 1.2% Neutrophils (%) (Auto) 68.2% Lymphocytes (%) (Auto) 17.6% Monocytes (%) (Auto) 10.7% Eosinophils (%) (Auto) 2.1% Basophils (%) (Auto) 0.2% Absolute Immature Granulocyte (auto 0.15T/MM3 Absolute Neutrophils (auto) 8.3T/MM3 Absolute Lymphocytes (auto) 2.1T/MM3 Absolute Monocytes (auto) 1.3T/MM3 Absolute Eosinophils (auto) 0.3T/MM3 Absolute Basophils (auto) 0.0T/MM3 Turbidity < 20 Sodium Level 145MEQ/L Potassium Level 3.6MEQ/L Chloride Level 110MEQ/L Carbon Dioxide Level 24MEQ/L Anion Gap 11MEQ/L Blood Urea Nitrogen 16.0MG/DL Creatinine 0.8MG/DL Glomerular Filtration Rate Calc 73 BUN/Creatinine Ratio 20RATIO Glucose Level 89MG/DL Calculated Osmolality 279MOSM/KG Calcium Level 8.8MG/DL Total Bilirubin 1.20MG/DL Icterus Index < 2 Aspartate Amino Transf (AST/SGOT) 11U/L Alanine Aminotransferase (ALT/SGPT) 26U/L Alkaline Phosphatase 118U/L Total Protein 5.7G/DL Albumin 3.4G/DL Globulin 2.3G/DL Albumin/Globulin Ratio 1.5RATIO Lipase 175U/L Chemistry Specimen Hemolysis < 15 Urine Collection Type Cleancatch-midstream Urine Color Yellow Urine Turbidity Clear Urine pH 6.5 Urine Specific Guthrie <=1.005 Urine Protein Negative Urine Glucose (UA) Negative Urine Ketones Negative Urine Blood Trace-intact Urine Nitrite Negative Urine Bilirubin Negative Urine Urobilinogen 0.2EU/DL Urine Leukocyte Esterase 1+ Urine RBC 0-1/HPF Urine WBC 0-1/HPF Urine Squamous Epithelial Cells 5-10 Urine Bacteria Trace Urine Culture Indicated Cult not indicated Progress Progress WBC was 12.2 and neutrophils are 68.2. Hgb is 9.5 which is stable from her GI bleed admission. UA shows trace bacteria and 1+ LE, she is asymptomatic at this time. She is resting on the cart with eyes closed, is asleep but responds easily to stimuli. She does deny any pain at this time. Will go head and let her go home today. F/U with PCP if any further concerns or return to ER for reevaluation. ASHISH FERGUSON APRN Oct 07, 2016 13:56
--- OUTSIDE RECORDS SUMMARY | 2016-10-07 13:58 | XMS REPORT | Continuity of Care Document ---
Author Author [facility] Organization [facility] Address Unknown Phone Unavailable Allergies Active Description [...] Procedures Code Description Performed By Performed On [id number] EXCISION OF DUODENUM, ENDO, DIAGN Yamile Cheng [...] PLATELET COUNT 427 k/cumm 150-400 [facility]OL[facility] 03:06 POTASSIUM 4.3 mmol/L [...] Status Pt. Type Provider Facility Loc./Unit Complaint [id number] 08/01/2015 16:19:00 2015 17:34:00 DIS Inpatient Cheng [facility] [id number] 08/08/2014 17:14:00 Document Registration
[2016-10-07 13:59] LABS: BASOPHILS % (AUTO) 0.2 % (0-2); EOSINOPHILS # (AUTO) 0.3 T/MM3 (0-0.5); EOSINOPHILS % (AUTO) 2.1 % (0-4); HCT - HEMATOCRIT 31.8 % (36-46); HGB - HEMOGLOBIN 9.5 GM/DL (12-16); IMMATURE GRANULOCYTE # (AUTO) 0.15 T/MM3 (0.00-0.03); IMMATURE GRANULOCYTE % (AUTO) 1.2 % (0.0-0.5); LYMPHOCYTES # (AUTO) 2.1 T/MM3 (1-4.8); LYMPHOCYTES % (AUTO) 17.6 % (23-45); MEAN CORPUSCULAR HGB 25.3 UUG (26-34); MEAN CORPUSCULAR HGB CONC(MCHC 29.9 GM/DL (31-37); MEAN CORPUSCULAR VOLUME 84.8 UM3 (80-100); MEAN PLATELET VOLUME 11.6 UM3 (9.4-12.4); MONOCYTES # (AUTO) 1.3 T/MM3 (0-0.8); MONOCYTES % (AUTO) 10.7 % (0-9.0); NEUTROPHILS #(AUTO)-ABSOLUTE 8.3 T/MM3 (1.8-7.7); NEUTROPHILS % (AUTO) 68.2 % (33-66); RED BLOOD COUNT 3.75 M/MM3 (4.00-5.20); WBC - WHITE BLOOD COUNT 12.2 T/MM3 (4.5-11.0)
[2016-10-07 14:04] LABS: ALBUMIN 3.4 G/DL (3.5-5.0); ALBUMIN/GLOBULIN RATIO 1.5 RATIO (1.1-2.2); ALKALINE PHOSPHATASE 118 U/L (38-126); ALT (SGPT) 26 U/L (9-52); ANION GAP 11 MEQ/L (5-15); AST (SGOT) 11 U/L (14-36); BUN/CREATININE RATIO 20 RATIO (6-26); CALCIUM 8.8 MG/DL (8.4-10.2); CHLORIDE 110 MEQ/L (98-107); CO2 - CARBON DIOXIDE 24 MEQ/L (22-30); CREATININE 0.8 MG/DL (0.7-1.2); GLOMERULAR FILTRATION RATE 73; GLUCOSE 89 MG/DL (65-110); POTASSIUM 3.6 MEQ/L (3.6-5); SODIUM 145 MEQ/L (134-144); TOTAL PROTEIN 5.7 G/DL (6.3-8.2)
[2016-10-07] MEDS ORDERED: SUCR1TAB PO (14:06)
[2016-10-07] MEDS ORDERED: CYAN10009 PO (14:09)
[2016-10-07] MEDS ORDERED: FERR324T4 PO (14:09)
[2016-10-07 14:11] LABS: LIPASE 175 U/L (23-300)
[2016-10-07] MEDS ORDERED: HYOS0.3739 PO (14:12)
[2016-10-07] MEDS ORDERED: OMEP-122 PO (14:15)
[2016-10-07] MEDS ORDERED: NITR0.4T39 PO (14:15)
[2016-10-07] MEDS ORDERED: SOTA80TA PO (14:16)
[2016-10-07] MEDS ORDERED: OXYC-541 PO (14:16)
--- NOTE | 2016-10-07 14:40 | NUR ---
ELIMINATION PATIENT UP TO BR TO VOID. UA TO BE COLLECTED.
[2016-10-07 14:54] LABS: BLOOD, URINE TRACE-INTACT (NEGATIVE); COLOR,URINE YELLOW (YELLOW); LEUKOCYTE ESTERASE ,URINE 1+ (NEGATIVE); NITRITE,URINE NEGATIVE (NEGATIVE); UROBILINOGEN,URINE 0.2 EU/DL (NORMAL)
[2016-10-07 15:01] LABS: BACTERIA,URINE TRACE (NEGATIVE); RBC,URINE 0-1 /HPF (0-3); WBC,URINE 0-1 /HPF (0-5)
[2016-10-07 15:31] VITALS: BP 125/55; PULSE 63; RESP 16; TEMP 98.6; O2SAT 100
== END 2016-10-07 15:31 | disposition home or self-care (01) ==
LOC: ED 13:36
DX: R10.13 Epigastric pain (principal); R11.2 Nausea with vomiting, unspecified
CPT/HCPCS: 80053; 81001; 83690; 85025